=== PATIENT | female | born 1975 | race Caucasian/White ===

== ENCOUNTER 2022-05-20 21:24 | Emergency (ER) | payer BC ==
--- OUTSIDE RECORDS SUMMARY | 2022-05-20 21:28 | XMS REPORT | Continuity of Care Document ---
:1975 Author Organization [facility] t Address [address] [place] [address] Care Team Providers Name Role Phone Marce Husain MD Primary Care Physician Marce Husain MD Attending Clinician MARCE HUSAIN Attending Clinician Unavailable Pob1, Acute Care Clinic Attending Clinician Unavailable Payers Payer Name Policy Type Policy Number Effective Date Expiration Date S ource Problems Condition Condition Condition Status Onset Resolution Last Treating Co mments Source Name Details Category Date Date Treatment Clinician Date Attention Attention Disease Active 2014-09 Uni vers deficit deficit 0-01 ity of disorder disorder 00:00: [place] (ADD) (ADD) 00 Medical without without Branch hyperactiv hyperactiv ity ity Allergies, Adverse Reactions, Alerts Allergy Allergy Status Severity Reaction(s) Onset Inactive Treating Comm ents Source Name Type Date Date Clinician Levoflox Propensi Active Shortness of 2014-09 Univers acin ty to Breath 0-01 ity of adverse 00:00: [place] reaction 00 Medical s Branch LEVOFLOX DRUG Active SOB 2014-09 Univers ACIN INGREDI 0-01 ity of 00:00: [place] 00 Medical Branch Social History Social Habit Start Date Stop Date Quantity Comments Source Exposure to 2022-03-07 2022-03-17 Not sure [facility] SARS-CoV-2 00:00:00 07:44:00 [place] [facility] (event) Branch Alcohol intake 2020-11-16 2020-11-16 0 /d University 00:00:00 00:00:00 [place] [facility] Tobacco use and 2018-06-08 2018-06-08 Smokeless tobacco Un iversity of exposure 00:00:00 00:00:00 non-user [facility] Sex Ass[birth year] At [birth year] Universit y of 00:00:00 00:00:00 [facility] Smoking Status Start Date Stop Date Source Never smoked tobacco [facility] Medications Ordered Filled Start Stop Current Ordering Indication Dosage Frequency Signature Comments Components Source Medication Medication Date Date Medication? Clinician (SIG) Name Name dextroamphe Yes [id number] 20mg Take 1 Univers tamine-amph 8-15 tablet by ity of etamine 20 00:00: mouth in Last as mg tablet 00 the Medical morning Branch and 1 tablet in the evening. azithromyci 2021-0 Yes [id number] 250mg Take 1 Univers n 250 mg 7-14 tablet by ity of tablet 00:00: mouth in [place] 00 the Medical morning. Branch azithromyci 2021-0 Yes [id number] 250mg Take 1 Univers n 250 mg 7-14 tablet by ity of tablet 00:00: mouth in [place] 00 the Medical morning. Branch azithromyci 2021-0 Yes [id number] 250mg Take 1 Univers n 250 mg 7-07 tablet by ity of tablet 00:00: mouth [place] 00 daily. Medical Branch azithromyci 2021-0 Yes [id number] 250mg Take 1 Univers n 250 mg 7-07 tablet by ity of tablet 00:00: mouth [place] 00 daily. [facility] azithromyci 0 2- No [id number] 250mg Take 1 Univers n 250 mg 7-07 07-14 tablet by ity o f tablet 00:00: 00:00 mouth [place] 00 :00 daily. Medical Branch dextroamphe 2021-0 Yes [id number] 20mg Take 1 Univers tamine-amph 7-06 tablet by ity of etamine 20 00:00[place] tablet 00 (two) Medical times Branch daily. dextroamphe 2021-0 Yes [id number] 20mg Take 1 Univers tamine-amph 7-06 tablet by ity of etamine 20 00:00: mouth [place] tablet 00 (two) Medical times Branch daily. dextroamphe 2021-0 Yes [id number] 20mg Take 1 Univers tamine-amph 7-06 tablet by ity of etamine 20 00:00: [place] mg tablet 00 (two) Medical times Branch daily. dextroamphe 2021- No [id number] 20mg Take 1 Univers tamine-amph 7-06 08-15 tablet by it y of etamine 20 00:00: 00:00 mouth 2 Last as mg tablet 00 :00 (two) Medical times Branch daily. azithromyci 2020-09 Yes [id number] 250mg Take 1 Univers n 250 mg 1-16 tablet by ity of tablet 00:00: mouth [place] 00 daily. Medical Branch azithromyci 2020-09 Yes [id number] 250mg Take 1 Univers n 250 mg 1-16 tablet by ity of tablet 00:00: mouth [place] 00 daily. Medical Branch azithromyci 2020-09- No [id number] 250mg Take 1 Univers n 250 mg 1-16 07-14 tablet by ity o f tablet 00:00: 00:00 mouth [place] 00 :00 daily. Medical Branch cefUROXime Yes [id number] 500mg Take 1 Univers 500 mg 6-08 tablet by ity of tablet 00:00: mouth 2 [place] 00 (two) Medical times Branch daily. cefUROXime 2020-0 Yes [id number] 500mg Take 1 Univers 500 mg 6-08 tablet by ity of tablet 00:00: mouth 2 [place] 00 (two) Medical times Branch daily. cefUROXime 2020-0 Yes [id number] 500mg Take 1 Univers 500 mg 6-08 tablet by ity of tablet 00:00: mouth 2 [place] 00 (two) Medical times Branch daily. cefUROXime 2020-0 Yes [id number] 500mg Take 1 Univers 500 mg 6-08 tablet by ity of tablet 00:00: mouth 2 [place] 00 (two) Medical times Branch daily. hydrocodone 2019-0 Yes [id number] 5mL Take 5 mL Univers -chlorpheni 3-09 by mouth ity of ramine 00:00: every 12 [place] (IONEX 00 (twelve) Medic al PENNKINETIC hours as Bran ch ER) 10-8 needed for mg/5 mL Cough. suspension hydrocodone 2019-0 Yes [id number] 5mL Take 5 mL Univers -chlorpheni 3-09 by mouth ity of ramine 00:00: every 12 [place] (TUSSIONEX 00 (twelve) Medic al PENNKINETIC hours as Bran ch ER) 10-8 needed for mg/5 mL Cough. suspension hydrocodone 2020-0 Yes [id number] 5mL Take 5 mL Univers -chlorpheni 3-09 by mouth ity of ramine 00:00: every 12 [place] (TUSSIONEX 00 (twelve) Medic al PENNKINETIC hours as Bran ch ER) 10-8 needed for mg/5 mL Cough. suspension hydrocodone 2020-0 Yes [id number] 5mL Take 5 mL Univers -chlorpheni 3-09 by mouth ity of ramine 00:00: every 12 [place] (TUSSIONEX 00 (twelve) Medic al PENNKINETIC hours as Bran ch ER) 10-8 needed for mg/5 mL Cough. suspension FLUoxetine Yes 20mg Take 1 Unive rs (PROZAC) 20 3-12 capsule by it y of mg capsule 00:00: mouth [place] 00 daily. Medical Branch FLUoxetine Yes 20mg Take 1 Unive rs (PROZAC) 20 3-12 capsule by it y of mg capsule 00:00: mouth [place] 00 daily. Medical Branch FLUoxetine Yes 20mg Take 1 Unive rs (PROZAC) 20 3-12 capsule by it y of mg capsule 00:00: mouth [place] 00 daily. Medical Branch FLUoxetine Yes 20mg Take 1 Unive rs (PROZAC) 20 3-12 capsule by it y of mg capsule 00:00: mouth [place] 00 daily. Medical Branch Immunizations Ordered Immunization Filled Immunization Date Status Commen ts Source Name Name Influenza Virus 2020-08-17 Completed Universit y of Vaccine Quad .5 mL IM 00:00:00 Last as Medical 6+ MO Branch Influenza Virus 2020-08-17 Completed Universit y of Vaccine Quad .5 mL IM 00:00:00 Last as Medical 6+ MO Branch Influenza Virus 2020-08-17 Completed Universit y of Vaccine Quad .5 mL IM 00:00:00 Last as Medical 6+ MO Branch Influenza Virus 2020-08-17 Completed Universit y of Vaccine Quad .5 mL IM 00:00:00 Last as Medical 6+ MO Branch HEP B, Adult Dosage 2018-03-29 Completed Unive rsity of 00:00:00 [facility] HEP B, Adult Dosage 2018-03-29 Completed Unive rsity of 00:00:00 [facility] HEP B, Adult Dosage 2018-03-29 Completed Unive rsity of 00:00:00 [facility] HEP B, Adult Dosage 2018-03-29 Completed Unive rsity of 00:00:00 [facility] TDAP 2018-02-19 Completed University of 00:00:00 [facility] MMR Booster 2018-02-19 Completed University of 00:00:00 [facility] HEP B, Adult Dosage 2018-02-19 Completed Unive rsity of 00:00:00 [facility] Meningococcal 2018-02-19 Completed University of Polysaccharide 00:00:00 [place] Medi beni (groups A, C, Y and Branc h W-135) conjugate vaccine (MCV4P) PPD (TB) 2018-02-19 Completed University of 00:00:00 [facility] TDAP 2018-02-19 Completed University of 00:00:00 [facility] MMR Booster 2018-02-19 Completed University of 00:00:00 [facility] HEP B, Adult Dosage 2018-02-19 Completed Unive rsity of 00:00:00 [facility] Meningococcal 2018-02-19 Completed University of Polysaccharide 00:00:00 [place] Medi beni (groups A, C, Y and Branc h W-135) conjugate vaccine (MCV4P) PPD (TB) 2018-02-19 Completed University of 00:00:00 [facility] TDAP 2018-02-19 Completed University of 00:00:00 [facility] MMR Booster 2018-02-19 Completed University of 00:00:00 [facility] HEP B, Adult Dosage 2018-02-19 Completed Unive rsity of 00:00:00 [facility] Meningococcal 2018-02-19 Completed University of Polysaccharide 00:00:00 [place] Medi beni (groups A, C, Y and Branc h W-135) conjugate vaccine (MCV4P) PPD (TB) 2018-02-19 Completed University of 00:00:00 [facility] TDAP 2018-02-19 Completed University of 00:00:00 [facility] MMR Booster 2018-02-19 Completed University of 00:00:00 [facility] HEP B, Adult Dosage 2018-02-19 Completed Unive rsity of 00:00:00 [facility] Meningococcal 2018-02-19 Completed University of Polysaccharide 00:00:00 [place] Medi beni (groups A, C, Y and Branc h W-135) conjugate vaccine (MCV4P) PPD (TB) 2018-02-19 Completed [facility] 00:00:00 [facility] Vital Signs Vital Name Observation Time Observation Value Comments Source Systolic blood 2022-03-17 12:40:00 112 mm[Hg] Kevin sitoneyda [facility] Diastolic blood 2022-03-17 12:40:00 71 mm[Hg] Arceliaarian portillo [facility] Heart rate 2022-03-17 12:40:00 89 /min [facility] Body weight 2022-03-17 12:40:00 72.938 kg [facility] BMI 2022-03-17 12:40:00 24.45 kg/m2 [facility] Procedures This patient has no known procedures. Encounters Start End Encounter Admission Attending Care Care Encounter Source Date/Time Date/Time Type Type Clinicians Facility Department ID 2022-04-22 2022-04-22 [facility] [id number] Univers 00:00:00 00:00:00 [place] [id number] it y of [place] [id number] Last as WILBER?BLEA [id number] [address] OFFICE [facility] 2022-03-23 2022-03-23 [facility]phone [facility] [id number] Univers 00:00:00 00:00:00 [place] [id number] it y of [place] [id number] Last as WILBER?BLEA [id number] [address] MEDICAL OFFICE [facility] 2022-03-17 2022-03-17 Office [facility] [id number] Univers 07:30:00 07:45:00 Visit [place] [id number] it y of [place] [id number] Last as WILBER?BLEA [id number] [address] OFFICE [facility] 2022-03-17 2022-03-17 Outpatient R RODRIGUE [facility] [id number] Univers 07:30:00 07:30:00 MARCE hurley [facility] [place] [facility] 2020-02-26 2020-02-26 Urgent Pob1, Acute [facility] [id number] 15:47:29 16:07:29 [facility] [id number] [place] [id number] Professio [phone] nal [address] 2020-02-25 2020-02-25 [facility] [id number] 00:00:00 00:00:00 [facility] [id number] [place] [id number] Professio [phone] nal [facility] [address] 2019-12-18 2019-12-18 [facility] [id number] 00:00:00 00:00:00 [facility] [id number] [place] [id number] Professio [phone] nal [facility] [address] 2019-11-18 2019-11-18 [facility] [id number] 08:04:09 08:19:09 Visit [facility] [id number] [place] [id number] Professio [phone] [place] [address] [address] Results This patient has no known results.
--- NOTE | 2022-05-20 23:06 | ER ---
Nurse's Notes [facility] Name: Jessica Osuna Age: 46 yrs Sex: Female : 1975 Arrival Date: 05/20/2022 Time: 21:28 Bed 15 Private MD: Diagnosis: SARS-associated coronavirus as the cause of diseases classified elsewhere Presentation: 05/20 21:37 Chief complaint: Patient states: I took a home COVID test on Monday and it was bm7 positive. Since then I have been feeling worse. I have so much congestions, drainage, and a bad cough. I have also been running a fever. Coronavirus screen: Client reports previous positive COVID test result. Date of collection: May 18, 2022. Ebola Screen: No symptoms or risks identified at this time. Initial Sepsis Screen: Does the patient meet any 2 criteria? No. Patient's initial sepsis screen is negative. Does the patient have a suspected source of infection? No. Patient's initial sepsis screen is negative. Risk Assessment: Do you want to hurt yourself or someone else? Patient reports no desire to harm self or others. Onset of symptoms was May 18, 2022. Care prior to arrival: Medication(s) given: Tylenol, \T\ 1930. 21:37 Method Of Arrival: Ambulatory 7 21:37 Acuity: TINA 4 bm7 Triage Assessment: 21:39 General: Appears in no apparent distress. uncomfortable, Behavior is calm, cooperative, bm7 appropriate for age. Pain: Complains of pain in forehead. EENT: Nares are clear with drainage noted Oral mucosa is moist. Throat is reddened Reports nasal congestion nasal discharge. Neuro: No deficits noted. Cardiovascular: No deficits noted. Respiratory: Reports cough that is hacking, persistent pain with cough Airway is patent Respiratory effort is even, unlabored, Respiratory pattern is regular, symmetrical, Breath sounds are clear bilaterally. GI: Reports nausea, vomiting. : No deficits noted. No signs and/or symptoms were reported regarding the genitourinary system. Derm: No deficits noted. No signs and/or symptoms reported regarding the dermatologic system. Musculoskeletal: No deficits noted. No signs and/or symptoms reported regarding the musculoskeletal system. 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 - Social history:: Smoking status: Patient denies any tobacco usage or history of. - Family history:: not pertinent. - Hospitalizations: : No recent hospitalization is reported. Screenin:13 Abuse screen: Denies threats or abuse. Nutritional screening: No deficits noted. bm7 Tuberculosis screening: No symptoms or risk factors identified. Fall Risk None identified. Assessment: 23:13 Reassessment: No changes from previously documented assessment. Patient and/or family bm7 updated on plan of care and expected duration. Pain level reassessed. Vital Signs: 21:36 BP 115 / 52; Pulse 78; Resp 18; Temp 98.9(O); Pulse Ox 98% on R/A; Weight 68.04 kg (R); bm7 Height 5 ft. 8 in. (172.72 cm); Pain 7/10; 21:36 Body Mass Index 22.81 (68.04 kg, 172.72 cm) bm7 ED Course: 21:28 Patient arrived in ED. ja2 21:36 Arm band placed on right wrist. bm7 21:37 Joaquín Mcgee MD is Attending Physician. rn 21:39 Triage completed. bm7 23:03 Jordy Carroll RN is Primary Nurse. ja4 23:13 No apparent distress. bm7 23:13 Patient has correct armband on for positive identification. bm7 23:13 No provider procedures requiring assistance completed. Patient did not have IV access bm7 during this emergency room visit. Administered Medications: No medications were administered Medication: 23:13 VIS not applicable for this client. bm7 Outcome: 23:05 Discharge ordered by . rn 23:13 Eloped from waiting room, after seeing physician Time discovered patient gone: bm7 May 20, 2022 at 23:14 23:13 Condition: good 23:14 Patient left the ED. bm7 Signatures: Joaquín Mcgee MD MD rn McCarthy, Brittany, RN RN bm7 Alexander, Allie ja2 Glen, Jordy, RN RN ja4
--- NOTE | 2022-05-20 23:06 | EDPHYS ---
Physician Documentation [facility] Name: Jessica Osuna Age: 46 yrs Sex: Female : 1975 Arrival Date: 05/20/2022 Time: 21:28 Bed 15 Private MD: ED Physician Joaquín Mcgee HPI: 05/20 22:02 This 46 yrs old Female presents to ER via Ambulatory with complaints of Covid. rn 22:02 The patient or guardian reports cough, difficulty breathing, flu symptoms, low-grade rn fever, myalgias. Onset: The symptoms/episode began/occurred 2 day(s) ago. Severity of symptoms: At their worst the symptoms were moderate, in the emergency department the symptoms are unchanged. Modifying factors: The symptoms are alleviated by nothing, the symptoms are aggravated by nothing. Associated signs and symptoms: Pertinent positives: fever, rhinorrhea, sore throat, Pertinent negatives: chest pain. The patient has not experienced similar symptoms in the past. The patient has not recently seen a physician. Pt reports cough/congestion/sore throat/myalgias/fatigue for 2 days. COVID +. Reports what brought her in today was severe congestion, worse when lays down. No hx of asthma, does not smoke, is first time with COVID. No hemoptysis. no chest pain. . 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 - Social history:: Smoking status: Patient denies any tobacco usage or history of. - Family history:: not pertinent. - Hospitalizations: : No recent hospitalization is reported. 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 Exam: 22:02 Constitutional: This is a well developed, well nourished patient who is awake, alert, rn covered in blanket Head/Face: Normocephalic, atraumatic. Eyes: Periorbital areas with no swelling, redness, or edema. ENT: No stridor Neck: + tender anterior cervical LAD Cardiovascular: Regular rate and rhythm. No pulse deficits. Respiratory: Clear bilateral breath sounds, no wheezing. No increased work of breathing, no retractions or nasal flaring. Skin: Warm, dry MS/ Extremity: Pulses equal, no cyanosis Neuro: Awake and alert, GCS 15 Vital Signs: 21:36 BP 115 / 52; Pulse 78; Resp 18; Temp 98.9(O); Pulse Ox 98% on R/A; Weight 68.04 kg (R); bm7 Height 5 ft. 8 in. (172.72 cm); Pain 7/10; 21:36 Body Mass Index 22.81 (68.04 kg, 172.72 cm) bm7 MDM: 21:38 Patient medically screened. rn 23:04 Differential Diagnosis: Upper Respiratory Infection Viral Syndrome Other COVID. Data rn reviewed: vital signs, nurses notes, and as a result, I will discharge patient. Counseling: I had a detailed discussion with the patient and/or guardian regarding: the historical points, exam findings, and any diagnostic results supporting the discharge/admit diagnosis, the need for outpatient follow up, to return to the emergency department if symptoms worsen or persist or if there are any questions or concerns that arise at home. Refusal of service: The patient/guardian displays adequate decision making capability and despite a detailed discussion of alternatives, benefits, risks, and consequences refuses: all X-rays. ED course: Pt did not want CXR, left when was being taken to room. Had already given her recommendations for treatment, did not stay. . Administered Medications: No medications were administered Disposition Summary: 05/20/22 23:05 Discharge Ordered Location: Home rn Problem: new rn Symptoms: are unchanged rn Condition: Stable rn Diagnosis - SARS-associated coronavirus as the cause of diseases classified elsewhere rn Followup: rn - With: Private Physician - When: As needed - Reason: Recheck today's complaints, Re-evaluation by your physician Discharge Instructions: - Discharge Summary Sheet rn - GILBERTO-[place] rn Forms: - Medication Reconciliation Form rn - Thank You Letter rn - Antibiotic pacu rn - Prescription Opioid Use rn Signatures: Dispatcher [employer] EDJoaquín Gutiérrez MD MD rn McCarthy, Brittany, RN RN bm7 Corrections: (The following items were deleted from the chart) 22:52 21:47 Chest Single View+[id number] ordered. EDIL EDIL
[2022-05-21 04:11] VITALS: BP 115/52; TEMP 98.9; O2SAT 98
== END 2022-05-20 23:14 | disposition home or self-care (01) ==
LOC: ER 21:24
DX: U07.1 COVID-19 (principal); J45.909 Unspecified asthma, uncomplicated; Z88.1 Allergy status to other antibiotic agents
CPT/HCPCS: 99281

== ENCOUNTER 2023-09-19 15:21 | Observation (INO) | payer BC ==
--- OUTSIDE RECORDS SUMMARY | 2023-09-19 15:24 | XMS REPORT | Continuity of Care Document ---
Author Name Unknown Address 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 Name Role Phone Pob1, Acute Care Clinic Attending Clinician Porsche Kenny MD, Jose Attending Clinician Encounters Start Date/Time End Date/Time Encounter Type Admission Type Attending Clinicians Care Facility Care Department Encounter ID Source 2020-02-26 15:47:29 2020-02-26 16:07:29 Urgent Care Pob1, Acute Care Clinic [facility] [address] [id number] 2020-02-25 00:00:00 2020-02-25 00:00:00 Jose Fraser [facility] [address] [id number] 2019-12-18 00:00:00 2019-12-18 00:00:00 Jose rFaser [facility] [address] [id number] 2019-11-18 08:04:09 2019-11-18 08:19:09 Office Visit Jose Kenny [facility] [address] [id number]
[2023-09-19] MEDS ORDERED: D10W 250 ML IV ONE (16:03)
--- NOTE | 2023-09-19 16:07 | RAD REPORT ---
EXAM DESCRIPTION: CT - Ct Stroke Brain Wo Cont - 09/19/2023 3:51 pm CLINICAL HISTORY: STROKE ALERT COMPARISON: No comparisons TECHNIQUE: All CT scans are performed using dose optimization technique as appropriate and may inclu de automated exposure control or mA/KV adjustment according to patient size. FINDINGS: No intracranial hemorrhage, hydrocephalus.No areas of brain edema or evidence of midline s hift. Small indeterminate area of hypoattenuation in the left basal ganglia. CSF attenuation structur e at the left posterior frontal lobe could represent a small arachnoid cyst. The paranasal sinuses and mastoids are clear. The calvarium is intact. IMPRESSION: No acute large vascular territory infarct or intracranial hemorrhage. Small area of hypo attenuation left basal ganglia could represent a small age indeterminate lacunar infarct. MRI could f melbather evaluate. Discussed with Dr. Mojica by Dr. Sandoval at [id number] on 09/19/23
--- NOTE | 2023-09-19 16:10 | RAD REPORT ---
EXAM DESCRIPTION: CT - Neck Angio - 09/19/2023 3:55 pm CLINICAL HISTORY: HEADACHE COMPARISON: No comparisons TECHNIQUE: CT angiography of the neck vessels was performed with maximum intensity reformatted image s. CAROTID STENOSIS REFERENCE USING NASCET CRITERIA: Mild - <50% stenosis. Moderate - 50-69% stenosis. Severe - 70-94% stenosis. Near occlusion - 95-99% stenosis. Occluded - 100% stenosis. All CT scans are performed using dose optimization technique as appropriate and may include automated exposure control or mA/KV adjustment according to patient size. FINDINGS: A left aortic arch is identified with normal three vessel configuration of the great vesse ls. No significant flow abnormality is seen of the common carotid bilaterally. No significant stenosis is identified involving the cervical segments of both internal carotid arteri es. Normal flow is seen within both vertebral arteries. IMPRESSION: No significant flow abnormality of the neck vessels is identified.
--- NOTE | 2023-09-19 16:11 | RAD REPORT ---
EXAM DESCRIPTION: CT - Head angio - 09/19/2023 3:55 pm CLINICAL HISTORY: HEADACHE COMPARISON: Ct Stroke Brain Wo Cont dated 09/19/2023 TECHNIQUE: CT angiography of the head was performed with maximum intensity reformatted images. 3D ma ximum intensity pixel (MIP) reconstructions were created All CT scans are performed using dose optimization technique as appropriate and may include automated exposure control or mA/KV adjustment according to patient size. FINDINGS: Anterior circulation: No aneurysm or large vessel occlusion. No hemodynamically significant stenosis. No arteriovenous malf ormation identified. Posterior circulation: No aneurysm or large vessel occlusion. No hemodynamically significant stenosis. No arteriovenous malf ormation identified. IMPRESSION: No significant flow abnormality is detected.
--- NOTE | 2023-09-19 16:32 | RAD REPORT ---
EXAM DESCRIPTION: RAD - Chest Single View - 09/19/2023 4:22 pm CLINICAL HISTORY: COUGH COMPARISON: <Comparisons> FINDINGS: Lines: None. Lungs: No evidence of edema or pneumonia. Pleural: No significant pleural effusions or pneumothorax. Cardiac: The heart size is within normal limits. Mediastinum: Within normal limits. Bones: No acute fractures. Other: None IMPRESSION: No acute cardiopulmonary disease.
[2023-09-19] MEDS ORDERED: METHYLPREDNISOLONE 125 MG INJ ONE (16:38)
[2023-09-19] MEDS ORDERED: KETOROLAC 30 MG/ML INJ ONE (16:38)
[2023-09-19] MEDS ORDERED: NA CHLORIDE 0.9% 1,000 ML ONE (16:38)
[2023-09-19] MEDS ORDERED: DIPHENHYDRAMINE 50 MG/ML VIAL ONE (16:38)
[2023-09-19 16:39] LABS: Protime INR 1.02
[2023-09-19 16:40] LABS: Potassium 3.8 mEq/L (3.5-5.1); Troponin High Sensitivity 4.2 pg/mL (<58.9)
[2023-09-19 16:43] LABS: Absolute Lymphocytes (CBC) 1.1 K/uL (0.7-4.9); Hematocrit 30.2 % (36.0-45.0); Lymphocytes % 14.6 % (15.3-44.8); MCV 68.1 fL (80-100); MPV 7.5 fL (7.6-11.3); Platelets 321 thou/uL (152-406); RBC Red Blood Cell Count 4.44 M/uL (3.86-4.86)
[2023-09-19] MEDS ORDERED: METOCLOPRAMIDE 10 MG/2mL INJ ONE (16:45)
[2023-09-19 17:15] LABS: Anisocytosis 1+; Blood Morphology Comment NOTED (NOT SEEN); Hypochromasia 1+; Platelet Estimate ADEQ; White Blood Cell Scan OK (OK)
--- NOTE | 2023-09-19 18:15 | ER ---
Nurse's Notes [facility] Name: Jessica Osuna Age: 47 yrs Sex: Female : 1975 Arrival Date: 09/19/2023 Time: 15:21 Bed 6 Private MD: Diagnosis: Cerebral infarction, unspecified;Hypoglycemia, unspecified Presentation: 09/19 15:28 Chief complaint: Patient states: was driving this morning and I noticed my vision went iw blurry in my left eye , that was at 0745 this morning, then I started vomiting at 2 pm, and headache since 1250 , pain to right side of head and behind eye and across the front forehead , no fever. Coronavirus screen: Client presents with at least one sign or symptom that may indicate coronavirus-19. Ebola Screen: Patient negative for fever greater than or equal to 101.5 degrees Fahrenheit, and additional compatible Ebola Virus Disease symptoms Patient denies exposure to infectious person. Patient denies travel to an Ebola-affected area in the 21 days before illness onset. No symptoms or risks identified at this time. Initial Sepsis Screen: Does the patient meet any 2 criteria? No. Patient's initial sepsis screen is negative. Does the patient have a suspected source of infection? No. Patient's initial sepsis screen is negative. Risk Assessment: Do you want to hurt yourself or someone else? Patient reports no desire to harm self or others. Onset of symptoms was September 19, 2023. 15:28 Method Of Arrival: Wheelchair 15:28 Acuity: TINA 2 iw Triage Assessment: 20:55 General: Appears in no apparent distress. comfortable. jj7 Historical: - Allergies: 15:31 Levaquin; iw - Home Meds: 15:31 Adderall XR 20 mg Oral cp24 1 cap once daily [Active]; iw - PMHx: 15:31 Asthma; iw - Immunization history:: Adult Immunizations up to date. - Social history:: Smoking status: Patient denies any tobacco usage or history of. Screenin:16 [facility] ED Fall Risk Assessment (Adult) History of falling in the last 3 months, mb9 including since admission No falls in past 3 months (0 pts) Confusion or Disorientation No (0 pts) Intoxicated or Sedated No (0 pts) Impaired Gait No (0 pts) Mobility Assist Device Used No (0 pt) Altered Elimination No (0 pt) Score/Fall Risk Level 0 - 2 = Low Risk Oriented to surroundings, Maintained a safe environment, Educated pt \T\ family on fall prevention, incl call for assistance when getting out of bed. Abuse screen: Denies threats or abuse. Nutritional screening: No deficits noted. Tuberculosis screening: No symptoms or risk factors identified. 16:16 Belia Swallow Protocol 3 oz Water Swallow Challenge: Pt able to drink all water without mb9 stopping, coughing, choking or throat clearing: No Result: FAIL MD Notified: Cara Medina MD. Assessment: 15:38 Reassessment: pt taken to CT via wheelchair. mb9 16:10 General: Behavior is drowsy. mb9 16:10 Pain: Complains of pain in head Pain does not radiate. Pain currently is 8 out of 10 on mb9 a pain scale. Quality of pain is described as throbbing, Pain began suddenly, Is continuous. Neuro: Sapp Agitation-Sedation Scale (RASS): 0 - Alert and Calm Level of Consciousness is awake, obeys commands, lethargic, Oriented to person, place, time, situation, Appropriate for age Healthcare Social Worker are equal bilaterally Moves all extremities. Speech is normal, Facial symmetry appears normal, Pupils are PERRLA, Intact Reports blurred vision. Cardiovascular: Patient's skin is warm and dry. Respiratory: Airway is patent Respiratory effort is even, unlabored, Respiratory pattern is regular, symmetrical, Breath sounds are clear bilaterally. GI: Abdomen is flat, non-distended, Bowel sounds present X 4 quads. Abd is soft and non tender X 4 quads. Reports nausea, vomiting. : No signs and/or symptoms were reported regarding the genitourinary system. EENT: No signs and/or symptoms were reported regarding the EENT system. Derm: Skin is pink, warm \T\ dry. Musculoskeletal: Range of motion: intact in all extremities. 17:00 Reassessment: Patient and/or family updated on plan of care and expected duration. Pain mb9 level reassessed. Patient is alert, oriented x 3, equal unlabored respirations, skin warm/dry/pink. 17:40 Reassessment: Patient and/or family updated on plan of care and expected duration. Pain mb9 level reassessed. Patient is alert, oriented x 3, equal unlabored respirations, skin warm/dry/pink. Patient states symptoms have improved. Vital Signs: 15:28 BP 111 / 58; Pulse 69; Resp 16; Temp 97.3; Pulse Ox 97% on R/A; Weight 68.04 kg; Height iw 5 ft. 8 in. ; 16:47 BP 123 / 69; Pulse 66; Resp 16; Pulse Ox 100% on R/A; mb9 18:43 BP 108 / 55; Pulse 84; Resp 18; Pulse Ox 99% on R/A; tl4 19:30 BP 115 / 64; Pulse 72; Resp 18; Pulse Ox 99% ; jj7 20:27 BP 109 / 75; Pulse 75; Resp 19; Pulse Ox 99% ; jj7 15:28 Body Mass Index 22.81 (68.04 kg, 172.72 cm) iw Becca Coma Score: 18:15 Eye Response: spontaneous(4). Motor Response: obeys commands(6). Verbal Response: gb1 oriented(5). Total: 15. NIH Stroke Scale Scores: 16:05 NIHSS Score: 0 mb9 18:15 NIHSS Score: 0 gb1 ED Course: 15:23 Patient arrived in ED. mg5 15:28 Cara Medina MD is Attending Physician. gb1 15:31 Triage completed. iw 15:39 Trisha Valverde, RN is Primary Nurse. mb9 15:39 Arm band placed on. mb9 15:50 Inserted saline lock: 22 gauge in left antecubital area, using aseptic technique. mb9 15:50 EKG done, by ED staff, reviewed by Cara Medina MD. mb9 15:53 CT Stroke Brain w/o Contrast In Process Unspecified. EDMS 15:57 CT Head Angio In Process Unspecified. EDMS 15:57 CT Neck Angio In Process Unspecified. EDMS 16:05 Placed in gown. Bed in low position. Call light in reach. Side rails up X 1. Client mb9 placed on continuous cardiac and pulse oximetry monitoring. NIBP monitoring applied. sander hand on. 16:20 Inserted saline lock: 22 gauge in left forearm, using aseptic technique. ds4 16:24 Stroke CXR 1 View In Process Unspecified. EDMS 16:48 No provider procedures requiring assistance completed. mb9 18:12 Christian Beal MD is Hospitalizing Provider. gb1 20:58 Patient admitted, IV remains in place. compa Administered Medications: 16:15 Drug: D10 in Water IVP 250 ml IVP once Route: IVP; Site: right antecubital; mb9 16:49 Follow up: Response: No adverse reaction mb9 16:38 Drug: diphenhydrAMINE IVP 12.5 mg IVP once Route: IVP; Site: left forearm; mb9 17:49 Follow up: Response: No adverse reaction mb9 16:38 Drug: NS 0.9% IV 1000 ml IV at 1000 ml once Route: IV; Rate: 1000 ml; Site: left mb9 forearm; 18:22 Follow up: Response: No adverse reaction; IV Status: Completed infusion mb9 16:40 Drug: Ketorolac IVP 30 mg IVP once Route: IVP; Site: left forearm; mb9 17:49 Follow up: Response: No adverse reaction mb9 16:43 Drug: MethylPrednisoLONE IVP 60 mg IVP once Route: IVP; Site: left forearm; mb9 17:49 Follow up: Response: No adverse reaction mb9 16:44 Not Given (not in ER): [id number] mg IVP once iw 16:48 Drug: metoCLOPramide IVP 10 mg IVP once; over 1 to 2 minutes Route: IVP; Site: left mb9 forearm; 17:49 Follow up: Response: No adverse reaction mb9 Medication: 16:16 VIS not applicable for this client. mb9 Outcome: 18:14 Decision to Hospitalize by Provider. gb1 20:55 Admitted to Med/surg accompanied by tech, via wheelchair, room 215, Report called to compa VALERA RN 20:55 Condition: improved 21:07 Patient left the ED. compa NIH Stroke Scale - NIH Stroke Score Date: 09/19/2023 Time: 16:05 Total Score = 0 10. Dysarthria (speech clarity - read or repeat words) - 0(Normal) 11. Extinction and Inattention (visual/tactile/auditory/spatial/personal) - 0(No abnormality) 1a. Level of Consciousness (LOC) - 0(Alert) 1b. Level of Consciousness (LOC) (Month \T\ Age) - 0(Both) 1c. LOC Commands (Open \T\ Closes Eyes/Simonizer) - 0(Both) 2. Best Gaze (Lateral Gaze Paresis) - 0(Normal) 3. Visual Field Loss - 0(No visual loss) 4. Facial Palsy - 0(Normal) 5a. Left Arm: Motor (10-second hold) - 0(No drift) 5b. Right Arm: Motor (10-second hold) - 0(No drift) 6a. Left Leg: Motor (5-second hold - always test supine) - 0(No drift) 6b. Right Leg: Motor (5-second hold - always test supine) - 0(No drift) 7. Limb Ataxia (finger/nose \T\ heel/godfrey - test with eyes open) - 0(Absent) 8. Sensory Loss (pinprick arms/legs/face) - 0(Normal) 9. Best Language: Aphasia (description/naming/reading) - 0(No aphasia) Initials: mb9 NIH Stroke Scale - NIH Stroke Score Date: 09/19/2023 Time: 18:15 Total Score = 0 10. Dysarthria (speech clarity - read or repeat words) - 0(Normal) 11. Extinction and Inattention (visual/tactile/auditory/spatial/personal) - 0(No abnormality) 1a. Level of Consciousness (LOC) - 0(Alert) 1b. Level of Consciousness (LOC) (Month \T\ Age) - 0(Both) 1c. LOC Commands (Open \T\ Closes Eyes/Simonizer) - 0(Both) 2. Best Gaze (Lateral Gaze Paresis) - 0(Normal) 3. Visual Field Loss - 0(No visual loss) 4. Facial Palsy - 0(Normal) 5a. Left Arm: Motor (10-second hold) - 0(No drift) 5b. Right Arm: Motor (10-second hold) - 0(No drift) 6a. Left Leg: Motor (5-second hold - always test supine) - 0(No drift) 6b. Right Leg: Motor (5-second hold - always test supine) - 0(No drift) 7. Limb Ataxia (finger/nose \T\ heel/godfrey - test with eyes open) - 0(Absent) 8. Sensory Loss (pinprick arms/legs/face) - 0(Normal) 9. Best Language: Aphasia (description/naming/reading) - 0(No aphasia) Initials: gb1 Signatures: Dispatcher [employer] EDKristine Sanchez RN RN Cole Horne ds4 Madison Hung RN RN jj7 Trisha Valverde RN RN mb9 Faye Rios mg5 Cara Medina MD MD gb1 Miles De Anda tl4 Corrections: (The following items were deleted from the chart) 17:41 17:39 Reassessment: No changes from previously documented assessment. tung mb9
--- NOTE | 2023-09-19 18:15 | EDPHYS ---
Physician Documentation [facility] Name: Jessica Osuna Age: 47 yrs Sex: Female : 1975 Arrival Date: 09/19/2023 Time: 15:21 Bed 6 Private MD: ED Physician Cara Medina HPI: 09/19 18:15 This 47 yrs old Female presents to ER via Wheelchair with complaints of gb1 Vomiting, Headache, Blurred Vision. Historical: - Allergies: 15:31 Levaquin; iw - Home Meds: 15:31 Adderall XR 20 mg Oral cp24 1 cap once daily [Active]; iw - PMHx: 15:31 Asthma; iw - Immunization history:: Adult Immunizations up to date. - Social history:: Smoking status: Patient denies any tobacco usage or history of. ROS: 18:15 Constitutional: Positive for gb1 18:15 Eyes: Positive for blurry vision, 18:15 ENT: Positive for 18:15 ENT: Positive for Headache, 18:15 Abdomen/GI: Positive for nausea and vomiting, 18:15 All other systems are negative, gb1 Exam: 18:15 Head/Face: Normocephalic, atraumatic. Eyes: Pupils equal round and reactive to light, gb1 extra-ocular motions intact. Lids and lashes normal. Conjunctiva and sclera are non-icteric and not injected. Cornea within normal limits. Periorbital areas with no swelling, redness, or edema. ENT: Nares patent. No nasal discharge, no septal abnormalities noted. Tympanic membranes are normal and external auditory canals are clear. Oropharynx with no redness, swelling, or masses, exudates, or evidence of obstruction, uvula midline. Mucous membranes moist. Neck: Trachea midline, no thyromegaly or masses palpated, and no cervical lymphadenopathy. Supple, full range of motion without nuchal rigidity, or vertebral point tenderness. No Meningismus. Chest/axilla: Normal chest wall appearance and motion. Nontender with no deformity. No lesions are appreciated. Cardiovascular: Regular rate and rhythm with a normal S1 and S2. No gallops, murmurs, or rubs. Normal PMI, no JVD. No pulse deficits. Respiratory: Lungs have equal breath sounds bilaterally, clear to auscultation and percussion. No rales, rhonchi or wheezes noted. No increased work of breathing, no retractions or nasal flaring. Abdomen/GI: Soft, non-tender, with normal bowel sounds. No distension or tympany. No guarding or rebound. No evidence of tenderness throughout. Skin: Warm, dry with normal turgor. Normal color with no rashes, no lesions, and no evidence of cellulitis. MS/ Extremity: Pulses equal, no cyanosis. Neurovascular intact. Full, normal range of motion. Neuro: Awake and alert, GCS 15, oriented to person, place, time, and situation. Cranial nerves II-XII grossly intact. Motor strength 5/5 in all extremities. Sensory grossly intact. Cerebellar exam normal. Normal gait. Psych: Awake, alert, with orientation to person, place and time. Behavior, mood, and affect are within normal limits. 18:15 Constitutional: The patient appears lethargic, Vital Signs: 15:28 BP 111 / 58; Pulse 69; Resp 16; Temp 97.3; Pulse Ox 97% on R/A; Weight 68.04 kg; Height iw 5 ft. 8 in. ; 16:47 BP 123 / 69; Pulse 66; Resp 16; Pulse Ox 100% on R/A; mb9 18:43 BP 108 / 55; Pulse 84; Resp 18; Pulse Ox 99% on R/A; tl4 19:30 BP 115 / 64; Pulse 72; Resp 18; Pulse Ox 99% ; jj7 20:27 BP 109 / 75; Pulse 75; Resp 19; Pulse Ox 99% ; jj7 15:28 Body Mass Index 22.81 (68.04 kg, 172.72 cm) iw NIH Stroke Scale Scores: 16:05 NIHSS Score: 0 mb9 18:15 NIHSS Score: 0 gb1 Becca Coma Score: 18:15 Eye Response: spontaneous(4). Motor Response: obeys commands(6). Verbal Response: gb1 oriented(5). Total: 15. MDM: 15:28 Patient medically screened. gb1 18:15 Differential diagnosis: CVA versus TIA, acute hypoglycemia with metabolic derangements, gb1 consider new onset diabetes with hypoglycemia. I did a CAT scan just because of. Data reviewed: vital signs, nurses notes. ED course: 47-year-old female here with vomiting, headache and blurred vision with acute onset hypoglycemia as symptoms started today at work. She had a head CT today which showed angiogram showed acute lacunar infarct of the basal ganglia. I will admit her for observation on the hospitalist service inpatient admission on the hospitalist service for MRI brain and consultation with neurology. Patient symptoms are improved and she is able to eat here in the emergency department her blood sugar is over 80 at this time.. 09/19 15:39 Order name: Basic Metabolic Panel; Complete Time: 16:44 gb09/19 15:39 Order name: CBC with Diff; Complete Time: 17:30 09/19 15:39 Order name: High Sensitivity Troponin; Complete Time: 16:44 09/19 15:39 Order name: Magnesium; Complete Time: 16:44 09/19 15:39 Order name: Protime (+inr); Complete Time: 16:44 09/19 15:39 Order name: Ptt, Activated; Complete Time: 16:44 09/19 16:14 Order name: Glucose, Ancillary Testing; Complete Time: 16:28 EDMS 09/19 17:16 Order name: CBC Smear Scan; Complete Time: 17:30 EDMS 09/19 17:31 Order name: Glucose, Ancillary Testing; Complete Time: 17:42 EDMS 09/19 15:39 Order name: CT Head Angio; Complete Time: 16:28 09/19 15:39 Order name: CT Neck Angio; Complete Time: 16:28 09/19 15:39 Order name: CT Stroke Brain w/o Contrast; Complete Time: 16:28 09/19 15:39 Order name: Stroke CXR 1 View; Complete Time: 16:44 09/19 15:39 Order name: EKG; Complete Time: 15:40 09/19 15:39 Order name: Accucheck; Complete Time: 16:15 09/19 15:39 Order name: Cardiac monitoring; Complete Time: 15:39 09/19 15:39 Order name: EKG - Nurse/Tech; Complete Time: 16:08 09/19 15:39 Order name: IV Saline Lock; Complete Time: 16:15 09/19 15:39 Order name: Labs collected and sent; Complete Time: 16:15 09/19 15:39 Order name: NPO; Complete Time: 15:39 gb1 09/19 15:39 Order name: O2 Per Protocol; Complete Time: 15:39 gb1 09/19 15:39 Order name: O2 Sat Monitoring; Complete Time: 15:39 gb1 09/19 15:39 Order name: Stroke Swallow Screen; Complete Time: 15:39 gb1 Administered Medications: 16:15 Drug: D10 in Water IVP 250 ml IVP once Route: IVP; Site: right antecubital; mb9 16:49 Follow up: Response: No adverse reaction mb9 16:38 Drug: diphenhydrAMINE IVP 12.5 mg IVP once Route: IVP; Site: left forearm; mb9 17:49 Follow up: Response: No adverse reaction mb9 16:38 Drug: NS 0.9% IV 1000 ml IV at 1000 ml once Route: IV; Rate: 1000 ml; Site: left mb9 forearm; 18:22 Follow up: Response: No adverse reaction; IV Status: Completed infusion mb9 16:40 Drug: Ketorolac IVP 30 mg IVP once Route: IVP; Site: left forearm; mb9 17:49 Follow up: Response: No adverse reaction mb9 16:43 Drug: MethylPrednisoLONE IVP 60 mg IVP once Route: IVP; Site: left forearm; mb9 17:49 Follow up: Response: No adverse reaction mb9 16:44 Not Given (not in ER): [id number] mg IVP once iw 16:48 Drug: metoCLOPramide IVP 10 mg IVP once; over 1 to 2 minutes Route: IVP; Site: left mb9 forearm; 17:49 Follow up: Response: No adverse reaction mb9 Disposition: 18:20 Chart complete. gb1 Disposition Summary: 09/19/23 18:14 Hospitalization Ordered Notes: Hospitalization Status: Inpatient Admission gb1 Provider: Christian Beal Location: Telemetry/MedSurg (Inpatient) gb1 Condition: Fair gb1 Problem: new gb1 Symptoms: are unchanged gb1 Bed/Room Type: Standard gb1 Room Assignment: 215(09/19/23 20:16) kmf Diagnosis - Cerebral infarction, unspecified gb1 - Hypoglycemia, unspecified gb1 Forms: - Medication Reconciliation Form gb1 - SBAR form gb1 - Leadership Thank You Letter gb1 Critical care time excluding procedures: 18:15 Critical care time: Bedside Care: 90 minutes, Family Intervention: 25 minutes. Total gb1 time: 115 minutes NIH Stroke Scale - NIH Stroke Score Date: 09/19/2023 Time: 16:05 Total Score = 0 10. Dysarthria (speech clarity - read or repeat words) - 0(Normal) 11. Extinction and Inattention (visual/tactile/auditory/spatial/personal) - 0(No abnormality) 1a. Level of Consciousness (LOC) - 0(Alert) 1b. Level of Consciousness (LOC) (Month \T\ Age) - 0(Both) 1c. LOC Commands (Open \T\ Closes Eyes/Beater Operator) - 0(Both) 2. Best Gaze (Lateral Gaze Paresis) - 0(Normal) 3. Visual Field Loss - 0(No visual loss) 4. Facial Palsy - 0(Normal) 5a. Left Arm: Motor (10-second hold) - 0(No drift) 5b. Right Arm: Motor (10-second hold) - 0(No drift) 6a. Left Leg: Motor (5-second hold - always test supine) - 0(No drift) 6b. Right Leg: Motor (5-second hold - always test supine) - 0(No drift) 7. Limb Ataxia (finger/nose \T\ heel/godfrey - test with eyes open) - 0(Absent) 8. Sensory Loss (pinprick arms/legs/face) - 0(Normal) 9. Best Language: Aphasia (description/naming/reading) - 0(No aphasia) Initials: mb9 NIH Stroke Scale - NIH Stroke Score Date: 09/19/2023 Time: 18:15 Total Score = 0 10. Dysarthria (speech clarity - read or repeat words) - 0(Normal) 11. Extinction and Inattention (visual/tactile/auditory/spatial/personal) - 0(No abnormality) 1a. Level of Consciousness (LOC) - 0(Alert) 1b. Level of Consciousness (LOC) (Month \T\ Age) - 0(Both) 1c. LOC Commands (Open \T\ Closes Eyes/Beater Operator) - 0(Both) 2. Best Gaze (Lateral Gaze Paresis) - 0(Normal) 3. Visual Field Loss - 0(No visual loss) 4. Facial Palsy - 0(Normal) 5a. Left Arm: Motor (10-second hold) - 0(No drift) 5b. Right Arm: Motor (10-second hold) - 0(No drift) 6a. Left Leg: Motor (5-second hold - always test supine) - 0(No drift) 6b. Right Leg: Motor (5-second hold - always test supine) - 0(No drift) 7. Limb Ataxia (finger/nose \T\ heel/godfrey - test with eyes open) - 0(Absent) 8. Sensory Loss (pinprick arms/legs/face) - 0(Normal) 9. Best Language: Aphasia (description/naming/reading) - 0(No aphasia) Initials: gb1 Signatures: Dispatcher [employer] EDKristine Sanchez RN RN iw Trisha Valverde RN RN mb9 Cara Medina MD MD gb1 Ania Angela kmf Corrections: (The following items were deleted from the chart) 20:16 18:[address]
[2023-09-19] MEDS ORDERED: ALBUTEROL 2.5 MG/3 ML NEB SOL NEB PRN (18:57)
[2023-09-19] MEDS ORDERED: ACETAMINOPHEN 325 MG TABLET PO PRN (18:57)
--- NOTE | 2023-09-19 19:24 | P.HP ---
Certification for Inpatient Patient admitted to: Observation Patient will require the following post-hospital care: None Practitioner: I am a practitioner with admitting privileges, knowledge of patient current condition, hospital course, and medical plan of care. Services: Services provided to patient in accordance with Admission requirements found in Title 42 Section 412.3 of the Code of Federal Regulations Patient History Date of Service: 09/19/23 Reason for admission: Headache, blurry vision and vomiting History of Present Illness: Pt is a 47 yo female with past medical history of ADD, asthma (unknown lung disease that started after the COVID infection) and raynaud's disease who presents with blurry vision, right eye pain and vomiting. Pt reports that the blurry vision started at 7:45am while she was driving. She went home and later noticed right eye pain. It was subsequently followed by vomiting at 2:30pm. Pt denies eating any unusual food item. She ate Ham and mayonaise that she made by herself. The symptoms progressively worsened and pt came to the ER for evaluation. On admission, Lab studies show blood glucose of 22. Hgb 7.4, Na 132, Cr 0.74. CT head shows small left basal ganglia lacunar infarct, CTA head and neck are unremarkable. CXR is unremarkable. ER physician gave patient juice and the blood glucose improved to 125. At bedside, pt is in NAD. She denies any fever, chills, chest pain, SOB, nausea, abdominal pain, dysuria, leg edema or hematuria but reports headache, blurry vision and vomiting. Allergies levofloxacin [From Levaquin] Allergy (Intermediate, Verified 05/16/12 17:47) Hives - Past Medical/Surgical History Has patient received pneumonia vaccine in the past: No Diabetic: No Past Medical History: Reviewed- Non-Contributory -: Asthma -: Raynaud's disease -: ADD Past Surgical History: Reviewed- Non-Contributory -: Tubal ligation -: Teeth Extraction -: Breast Augmentation - Family History Family History: Reviewed- Non-Contributory - Family History Diabetes History Unknown: Yes -: Hypertension, Diabetes - Social History Smoking Status: Never smoker Alcohol use: No CD- Drugs: No Caffeine use: No Place of Residence: Home Review of Systems Unremarkable General: Unremarkable Eyes: Vision Change ENT: Unremarkable Respiratory: Unremarkable Cardiovascular: Unremarkable Gastrointestinal: Nausea, Vomiting Genitourinary: Unremarkable Musculoskeletal: Unremarkable Integumentary: Unremarkable Neurological: Unremarkable Lymphatics: Unremarkable Physical Examination - Physical Exam General: Alert, In no apparent distress, Oriented x3 HEENT: Atraumatic, Normocephalic, PERRLA Neck: Supple, 2+ carotid pulse no bruit Respiratory: Clear to auscultation bilaterally, Normal air movement Cardiovascular: No edema, Normal pulses, Regular rate/rhythm, Normal S1 S2 Capillary refill: <2 Seconds Gastrointestinal: Normal bowel sounds, Soft and benign, Non-distended Musculoskeletal: No clubbing, No swelling Integumentary: No rashes, No breakdown Neurological: Normal gait, Normal speech, Normal strength at 5/5 x4 extr, Sensation intact Lymphatics: No axilla or inguinal lymphadenopathy - Studies Laboratory Data (last 24 hrs) 09/19/23 09/19/23 09/19/23 16:12 16:12 16:12 WBC 7.40 Hgb 9.4 L Hct 30.2 L Plt Count 321 PT 11.2 INR 1.02 APTT 25.9 Sodium 132 L Potassium 3.8 BUN 11 Creatinine 0.74 Glucose 125 H Magnesium 2.0 Assessment and Plan - Plan CVA symptoms: Pt had blurry vision and right eye pain prior to admission. Will r/o CVA. CT head shows a small left basal ganglia lacunar infarct. CTA head and neck unremarkable. Will allow permissive htn. Continue aspirin and atorvastatin. Will follow up MRI brain and Echo. Hypoglycemia: Unknown etiology. Pt's blood glucose improved from 22 to 125 after she took juice. Will r/o insulinoma or factitious hypoglycemia. Will follow up insulin and C-peptide level. I was not able to order pro-insulin and sulphonylurea level. Hyponatremia: Na is 132. Will continue IVF and monitor Na level. Nausea and vomiting: Will continue IVF and prn antiemetic. Hx of Asthma: Will continue prn albuterol. Hx of raynaud's disease: Stable. No discoloration of the fingers and toes. DVT ppx: heparin Code: full Discharge Plan: Home Plan to discharge in: 24 Hours - Advance Directives Does patient have a Living Will: No Does patient have a Durable POA for Healthcare: No - Code Status/Comfort Care Code Status Assessed: Yes Code Status: Full Code
[2023-09-19] MEDS ORDERED: HYDRALAZINE HCL 20 MG/ML VIAL IV PRN (19:47)
[2023-09-19] MEDS ORDERED: ATORVASTATIN 40 MG TAB PO SCH (21:00)
[2023-09-19] MEDS: NA CHLORIDE 0.9% 1,000 ML IV SCH (21:26)
[2023-09-19 22:17] VITALS: O2SAT 99; BMI 23.2
[2023-09-20 03:11] LABS: Absolute Lymphocytes (CBC) 0.7 K/uL (0.7-4.9); Hematocrit 27.4 % (36.0-45.0); Lymphocytes % 13.6 % (15.3-44.8); MPV 7.8 fL (7.6-11.3); Platelets 298 thou/uL (152-406); RBC Red Blood Cell Count 4.04 M/uL (3.86-4.86)
[2023-09-20 03:12] LABS: MCV 67.8 fL (80-100)
[2023-09-20 03:17] LABS: Phosphorus 1.9 mg/dL (2.5-4.9); Potassium 3.9 mEq/L (3.5-5.1)
[2023-09-20 04:47] LABS: Renal Epithelial <5 /HPF (None Seen); Specific Gravity 1.029 (1.005-1.030); Urine Bacteria None Seen /HPF (<20); Urine Bilirubin NEGATIVE (Negative); Urine Blood Negative (Negative); Urine Clarity Clear (Clear); Urine Color Light-Yellow (Yellow); Urine Glucose 2+ (Negative); Urine Mucus Slight /HPF (None Seen); Urine Protein NEGATIVE (Negative); Urine RBC <5 /HPF (None Seen); Urine Urobilinogen Normal (Normal); Urine pH 5.5 (5.0-7.0)
[2023-09-20] MEDS: POTASS/SODIUM PHOSPHATE 1 PKT POWD.PACK PO SCH ×3 (06:41→12:22)
[2023-09-20] MEDS: NA CHLORIDE 0.9% 1,000 ML IV SCH (06:42)
[2023-09-20] MEDS ORDERED: INFLUENZA VACCINE (for 6+ mo) 0.5 ML DOSE IMVAC ONE (08:00)
[2023-09-20] MEDS ORDERED: POTASSIUM CL SA 10 MEQ TAB PO ONE (09:00)
[2023-09-20] MEDS ORDERED: ASPIRIN 81 MG CHEWABLE TABLET PO SCH (09:00)
[2023-09-20] MEDS: HEPARIN 5000 UNIT/ML 1 ML VIAL SQ SCH ×2 (09:46)
[2023-09-20 10:28] VITALS: BP 114/59; TEMP 98.5
--- NOTE | 2023-09-20 11:39 | RAD REPORT ---
EXAM DESCRIPTION: MRI - Brain W/Wo Cont - 09/20/2023 11:08 am CLINICAL HISTORY: MRI brain to r/o CVA COMPARISON: Head CT and CT angiogram of the previous day TECHNIQUE: Multiplanar multisequence MRI of the brain performed before and after intravenous adminis tration of 15 mL MultiHance. FINDINGS: No evidence of acute infarct or other diffusion signal abnormality. Focal prominence in the region of the left central sulcus, may be developmental or related to a small arachnoid cyst. This is unchanged. No evidence of acute intracranial hemorrhage or other abnormal ex tra-axial fluid collections. Mild diffuse parenchymal volume loss. Ventricular caliber otherwise within normal for age. Midline st ructures are unremarkable. No white matter signal abnormalities. No mass effect or midline shift. No abnormal enhancement. Major vascular flow voids are preserved. Mastoid air cells and paranasal sinuses are clear. IMPRESSION: No acute intracranial process. No evidence of abnormal enhancement or mass effect. Possible small arachnoid cyst along the left central sulcus.
[2023-09-20] MEDS ORDERED: POTASS/SODIUM PHOSPHATE 1 PKT POWD.PACK PO SCH (12:00)
--- NOTE | 2023-09-20 12:38 | P.DS ---
Admission Date: 09/19/23 Discharge Date: 09/20/23 Reason for Admission: Headache, blurry vision and vomiting - Problems (1) Hypoglycemia Current Visit: Yes Status: Acute (2) Raynaud's disease Current Visit: Yes Status: Acute (3) Microcytic anemia Current Visit: Yes Status: Acute Brief History of Present Illness: Pt is a 47 yo female with past medical history of ADD, asthma (unknown lung disease that started after the COVID infection) and raynaud's disease who pr esented with blurry vision, right eye pain and vomiting. Pt reported that the blurry vision started while she was driving. She went home and later noticed right eye pain. It was subsequently followed by vomiting. The symptoms progressively worsened and pt came to the ER for evaluation. In the ER, lab studies showed blood glucose of 22. Hgb 7.4, Na 132, Cr 0.74. CT head shows small left basal ganglia lacunar infarct, CTA head and neck are unremarkable. CXR is unremarkable. ER physician gave patient fruit juice and the blood glucose improved to 125. Patient was hospitalized for further evaluation and management. Hospital Course: Patient placed under observation on the medical floor. Workup with MRI of the brain did not show any acute stroke. Patient blood sugar was stable. She tolerated diet. C-peptide and insulin level ordered and the results are pending to be followed as outpatient. Discussed with patient to follow-up with his PCP for further evaluation of the hypoglycemia and prescribed glucose monitoring kit to monitor her blood glucose daily. Given patient has lacunar infarct, she is prescribed aspirin and Lipitor. Also noted patient has microcytic anemia. No reported GI bleed. Patient is currently asymptomatic with stable vitals and deemed stable for discharge. Vital Signs/Physical Exam: Temp Pulse Resp BP Pulse Ox 98.5 F 68 16 114/59 L 99 09/20/23 08:00 09/20/23 08:00 09/20/23 08:00 09/20/23 08:00 09/20/23 08:00 General: Alert, In no apparent distress, Oriented x3 HEENT: Mucous membr. moist/pink Neck: Supple, JVD not distended Respiratory: Clear to auscultation bilaterally, Normal air movement Cardiovascular: No edema, Regular rate/rhythm, Normal S1 S2 Gastrointestinal: Normal bowel sounds, Soft and benign, Non-distended, No tend erness Musculoskeletal: No swelling Integumentary: No rashes Neurological: Normal strength at 5/5 x4 extr Laboratory Data at Discharge: WBC 5.30 thou/uL (4.3-10.9) 09/20/23 01:58 Hgb 8.7 g/dL (12.0-15.0) L 09/20/23 01:58 Hct 27.4 % (36.0-45.0) L 09/20/23 01:58 Plt Count 298 thou/uL (152-406) 09/20/23 01:58 PT 11.2 SECONDS (9.5-12.5) 09/19/23 16:12 INR 1.02 09/19/23 16:12 APTT 25.9 SECONDS (24.3-36.9) 09/19/23 16:12 Sodium 139 mEq/L (136-145) D 09/20/23 01:58 Potassium 3.9 mEq/L (3.5-5.1) 09/20/23 01:58 BUN 9 mg/dL (7-18) 09/20/23 01:58 Creatinine 0.70 mg/dL (0.55-1.02) 09/20/23 01:58 Glucose 126 mg/dL (74-106) H 09/20/23 01:58 Phosphorus 1.9 mg/dL (2.5-4.9) L 09/20/23 01:58 Magnesium 2.0 mg/dL (1.6-2.4) 09/19/23 16:12 Home Medications: Dextroamphetamine/Amphetamine [Adderall Xr 20 mg Capsule] 20 mg PO DAILY 09/19/23 Aspirin Chewable [Aspirin Chewable*] 81 mg PO DAILY #30 tab.chew 09/20/23 Atorvastatin Calcium [Lipitor] 40 mg PO BEDTIME #30 tab 09/20/23 Blood Sugar Diagnostic [Blood Glucose Test Strip] 1 each DAILY #30 strip 09/20/23 Blood-Glucose Meter [Blood Glucose Monitoring] 1 each DAILY #1 kit 09/20/23 New Medications: Aspirin Chewable [Aspirin Chewable*] 81 mg PO DAILY #30 tab.chew Blood-Glucose Meter [Blood Glucose Monitoring] 1 each DAILY #1 kit Blood Sugar Diagnostic [Blood Glucose Test Strip] 1 each DAILY #30 strip Atorvastatin Calcium [Lipitor] 40 mg PO BEDTIME #30 tab Physician Discharge Instructions: Your CT head reported lacunar infarct but your MRI brain did not show any acute stroke. Please call medical records or the 2nd floor nursing station ([phone]) for the final results of your blood test. Diet: AHA Activity: Ad ramos Followup: NONE,NONE [Primary Care Provider] - 1-2 Weeks Time spent managing pt's care (in minutes): 26
--- NOTE | 2023-09-20 17:35 | EKG ---
Test Date: 2023-09-19 Test Time: 16:05:22 Picking Belt Operator: CEM MEASUREMENT RESULTS: Intervals: Rate: 67 GA: 116 QRSD: 90 QT: 428 QTc: 452 Shoup: P: 50 GA: 116 QRS: 79 T: 31 INTERPRETIVE STATEMENTS: Normal sinus rhythm Nonspecific ST and T wave abnormality Abnormal ECG No previous ECG available for comparison Electronically Signed On 09-20-23 17:33:53 DIRECT MARKETING SPECIALIST by Gabriel Novak
--- NOTE | 2023-09-21 06:55 | ECHO ---
HEIGHT: 5 ft 8 in WEIGHT: 152 lb 12.8 oz DATE OF STUDY: 09/20/[address]: Christian Beal MD 2-DIMENSIONAL: YES M.MODE: YES DOPPLER: YES COLOR FLOW: YES TDS: PORTABLE: YES DEFINITY: BUBBLE STUDY: DIAGNOSIS: POSSIBLE CEREBRAL VASCULAR ACCIDENT CARDIAC HISTORY: CATHERIZATION: SURGERY: PROSTHETIC VALVE: PACEMAKER: MEASUREMENTS (cm) DIASTOLIC (NORMALS) SYSTOLIC (NORMALS) IVSd 0.7 (0.6-1.2) LA Diam 3.2 (1.9-4.0) LVEF 76% LVIDd 4.7 (3.5-5.7) LVIDs 2.6 (2.0-3.5) %FS 45% LVPWd 0.9 (0.6-1.2) Ao Diam 2.4 (2.0-3.7) 2 DIMENSIONAL ASSESSMENT: RIGHT ATRIUM: NORMAL LEFT ATRIUM: NORMAL RIGHT VENTRICLE: NORMAL LEFT VENTRICLE: NORMAL TRICUSPID VALVE: NORMAL MITRAL VALVE: TRACE MITRAL REGURGITATION PULMONIC VALVE: NORMAL AORTIC VALVE: NORMAL PERICARDIAL EFFUSION: NONE AORTIC ROOT: NORMAL LEFT VENTRICULAR WALL MOTION: NORMAL DOPPLER/COLOR FLOW: TRACE MITRAL REGURGITATION COMMENTS: 1. NORMAL LEFT VENTRICULAR EJECTION FRACTION 60-65% 2. NORMAL WALL MOTION 3. NORMAL DIASTOLIC FUNCTION TECHNOLOGIST: BETTYE DYSON
== END 2023-09-20 14:25 | disposition home or self-care (01) ==
LOC: ER 15:21 → ERHOLD 18:32 → 2ND 20:57
PROVIDERS: ADMIT Hospitalist; ATTEND Internal Medicine
DX: R51.9 Headache, unspecified (principal); E16.2 Hypoglycemia, unspecified; D64.9 Anemia, unspecified; H53.8 Other visual disturbances; R11.2 Nausea with vomiting, unspecified; F98.8 Other specified behavioral and emotional disorders with onset usually occurring in childhood and adolescence; J45.909 Unspecified asthma, uncomplicated; I73.00 Raynaud's syndrome without gangrene; U09.9 Post COVID-19 condition, unspecified
CPT/HCPCS: 96361; 93005; 93306; 85025 ×2; 81001; 80048 ×2; 36415 ×2; 83735; 84100; 85610; 82565; 82947 ×6; 85730; 84484; 83525; 84681; 70496; 70498; 70450; 71045; 70553; 97116; 97161; 96375; 96374; 99285; Q9967; A9577; J1644 ×2; J2765; J1200; J2930; J7030 ×3; G0378

== ENCOUNTER → 2023-09-23 | Emergency (ER) | payer BC ==
[~2023-09-23] MED LIST: NA CHLORIDE 0.9% 2,000 ML ONE; ONDANSETRON 4 MG/2 ML VIAL ONE
--- OUTSIDE RECORDS SUMMARY | 2023-09-23 17:17 | XMS REPORT | Continuity of Care Document ---
Author Name Unknown Address [address] [facility] [place] [address] [facility] Address [address] [facility] [address] [place] [address] Care Team Providers Care [employer] Name Role Phone Marce Husain MD Primary Care Physician + Marce Husain MD Attending Clinician + [phone] MARCE HUSAIN Attending Clinician Unavailable Doctor Unassigned, [place] Attending Clinician U RAÚL Roblero Attending Clinician Unavail able Leticia Worthington RN Attending Clinician Marie [facility] Unava danette Armando MD, Raúl Murillo Attending Clinician Blossom Carrillo Attending Clinician + [phone] BLOSSOM CHRISTINE Attending Clinician Unavailable Pcp-Lab Attending Clinician Unavailable NATO DURAN Attending Clinician Unavailable NATO DURAN Attending Clinician Unavailable Pob, Ad[facility] Main Attending Clinician Nato Peña DO Attending Clinician [phone] Pob1, [facility] Attending Clinician Unav Roya Bunn Attending Clinician + [phone] ROYA NICHOLS Attending Clinician Unavailable BLOSSOM CHRISTINE Admitting Clinician Unavailable Payers Payer Name Policy Type Policy Number Effective Date Expirati on Date Source Problems Condition Name Condition Details Condition Category Status Onset Date Resolution Date Last Treatment Date Treating Clinician Comments Source Attention deficit disorder (ADD) without hyperactiv ity Attention deficit disorder (ADD) without hyperactiv ity Disease Active 2014-09 00:00: 00 [facility] Allergies, Adverse Reactions, Alerts Allergy Name Allergy Type Status Severity Reaction(s) Onset Date Inactive Date Treating Clinician Comments Source Levoflox acin Propensi ty to adverse reaction s Active Shortness of Breath 2014-09 00:00: 00 [facility] LEVOFLOX ACIN DRUG INGREDI Active SOB 2014-09 00:00: 00 [facility] Social History Social Habit Start Date Stop Date Quantity Comments Source Gender identity [facility] Social function 2023-07-12 00:00:00 2023-07-12 00:00:00 [facility] Alcohol intake 2023-01-07 00:00:00 2023-01-07 00:00:00 0 /d [facility] Exposure to SARS-CoV-2 (event) 2022-12-12 00:00:00 2022-12-22 07:02:00 Not sure [facility] Tobacco use and exposure 2022-06-09 00:00:00 2022-06-09 00:00:00 Smokeless tobacco non-user [facility] Sex Assigned At 1975 00:00:00 1975 00:00:00 [facility] Smoking Status Start Date Stop Date Source Never smoked tobacco [facility] Medications Ordered Medication Name Filled Medication Name Start Date Stop Date Current Medication? Ordering Clinician Indication Dosage Frequency Signature (SIG) Comments Components Source dextroamphe tamine-amph etamine 20 mg tablet 2022-09 00:00: 00 Yes [id number] 20mg Take 1 tablet by mouth in the morning and 1 tablet in the evening. [facility] dextroamphe tamine-amph etamine 20 mg tablet 2022-09 00:00: 00 Yes [id number] 20mg Take 1 tablet by mouth in the morning and 1 tablet in the evening. [facility] montelukast 10 mg tablet 2022-09 00:00: 00 Yes [id number] 10mg Take 1 tablet by mouth in the morning. [facility] dextroamphe tamine-amph etamine 20 mg tablet 2022-09 00:00: 00 Yes [id number] 20mg Take 1 tablet by mouth in the morning and 1 tablet in the evening. [facility] montelukast 10 mg tablet 2022-09 00:00: 00 Yes [id number] 10mg Take 1 tablet by mouth in the morning. [facility] montelukast 10 mg tablet 2022-09 00:00: 00 Yes [id number] 10mg Take 1 tablet by mouth in the morning. [facility] dextroamphe tamine-amph etamine 20 mg tablet 2022-09 00:00: 00 08-30 00:00 :00 No [id number] 20mg Take 1 tablet by mouth in the morning and 1 tablet in the evening. [facility] dextroamphe tamine-amph etamine 20 mg tablet 04-11 00:00: 00 Yes [id number] 20mg Take 1 tablet by mouth in the morning and 1 tablet in the evening. [facility] dextroamphe tamine-amph etamine 20 mg tablet 04-11 00:00: 00 Yes [id number] 20mg Take 1 tablet by mouth in the morning and 1 tablet in the evening. [facility] dextroamphe tamine-amph etamine 20 mg tablet 04-11 00:00: 00 Yes [id number] 20mg Take 1 tablet by mouth in the morning and 1 tablet in the evening. [facility] dextroamphe tamine-amph etamine 20 mg tablet 04-11 00:00: 00 07-12 00:00 :00 No [id number] 20mg Take 1 tablet by mouth in the morning and 1 tablet in the evening. [facility] dextroamphe tamine-amph etamine 20 mg tablet 04-11 00:00: 00 07-12 00:00 :00 No [id number] 20mg Take 1 tablet by mouth in the morning and 1 tablet in the evening. [facility] dextroamphe tamine-amph etamine 20 mg tablet 0 625 00:00: 00 Yes [id number] 20mg Take 1 tablet by mouth in the morning and 1 tablet in the evening. [facility] dextroamphe tamine-amph etamine 20 mg tablet 0 25 00:00: 00 04-10 00:00 :00 No [id number] 20mg Take 1 tablet by mouth in the morning and 1 tablet in the evening. [facility] dextroamphe tamine-amph etamine 20 mg tablet 0 5-15 00:00: 00 Yes [id number] 20mg Take 1 tablet by mouth in the morning and 1 tablet in the evening. [facility] dextroamphe tamine-amph etamine 20 mg tablet 0 5-15 00:00: 00 Yes [id number] 20mg Take 1 tablet by mouth in the morning and 1 tablet in the evening. [facility] dextroamphe tamine-amph etamine 20 mg tablet 15 00:00: 00 03-05 00:00 :00 No [id number] 20mg Take 1 tablet by mouth in the morning and 1 tablet in the evening. [facility] mycophenola te mofetil 500 mg tablet 0 01-07 00:00: 00 Yes [id number] 500mg Take 1 tablet by mouth every 12 (twelve) hours. [facility] mycophenola te mofetil 500 mg tablet 0 29 00:00: 00 Yes [id number] 500mg Take 1 tablet by mouth every 12 (twelve) hours. [facility] mycophenola te mofetil 500 mg tablet 0 29 00:00: 00 Yes [id number] 500mg Take 1 tablet by mouth every 12 (twelve) hours. [facility] mycophenola te mofetil 500 mg tablet 0 29 00:00: 00 Yes [id number] 500mg Take 1 tablet by mouth every 12 (twelve) hours. [facility] mycophenola te mofetil 500 mg tablet 0 29 00:00: 00 Yes [id number] 500mg Take 1 tablet by mouth every 12 (twelve) hours. [facility] mycophenola te mofetil 500 mg tablet 2022-0 29 00:00: 00 Yes [id number] 500mg Take 1 tablet by mouth every 12 (twelve) hours. [facility] mycophenola te mofetil 500 mg tablet 2022-0 29 00:00: 00 Yes [id number] 500mg Take 1 tablet by mouth every 12 (twelve) hours. [facility] mycophenola te mofetil 500 mg tablet 2022-0 01-07 00:00: 00 Yes [id number] 500mg Take 1 tablet by mouth every 12 (twelve) hours. [facility] mycophenola te mofetil 500 mg tablet 0 01-07 00:00: 00 Yes [id number] 500mg Take 1 tablet by mouth every 12 (twelve) hours. [facility] mycophenola te mofetil 500 mg tablet 2022-0 01-07 00:00: 00 Yes [id number] 500mg Take 1 tablet by mouth every 12 (twelve) hours. [facility] mycophenola te mofetil 500 mg tablet 2022-0 01-07 00:00: 00 Yes [id number] 500mg Take 1 tablet by mouth every 12 (twelve) hours. [facility] mycophenola te mofetil 500 mg tablet 2022-0 01-07 00:00: 00 Yes [id number] 500mg Take 1 tablet by mouth every 12 (twelve) hours. [facility] mycophenola te mofetil 500 mg tablet 2022-0 29 00:00: 00 Yes [id number] 500mg Take 1 tablet by mouth every 12 (twelve) hours. [facility] polymyxin B sulf-trimet hoprim 10,000 unit- 1 mg/mL ophthalmic drops 0 12-22 00:00: 00 Yes [id number] 9104 Apply 1 drop to both eyes every 3 hours while awake for 7 days. [facility] polymyxin B sulf-trimet hoprim 10,000 unit- 1 mg/mL ophthalmic drops 2022-0 13 00:00: 00 Yes [id number] 9104 Apply 1 drop to both eyes every 3 hours while awake for 7 days. [facility] polymyxin B sulf-trimet hoprim 10,000 unit- 1 mg/mL ophthalmic drops 12-22 00:00: 00 Yes [id number] 9104 Apply 1 drop to both eyes every 3 hours while awake for 7 days. [facility] polymyxin B sulf-trimet hoprim 10,000 unit- 1 mg/mL ophthalmic drops 12-22 00:00: 00 Yes [id number] 9104 Apply 1 drop to both eyes every 3 hours while awake for 7 days. [facility] polymyxin B sulf-trimet hoprim 10,000 unit- 1 mg/mL ophthalmic drops 12-22 00:00: 00 Yes [id number] 9104 Apply 1 drop to both eyes every 3 hours while awake for 7 days. [facility] polymyxin B sulf-trimet hoprim 10,000 unit- 1 mg/mL ophthalmic drops 12-22 00:00: 00 Yes [id number] 9104 Apply 1 drop to both eyes every 3 hours while awake for 7 days. [facility] polymyxin B sulf-trimet hoprim 10,000 unit- 1 mg/mL ophthalmic drops 12-22 00:00: 00 Yes [id number] 9104 Apply 1 drop to both eyes every 3 hours while awake for 7 days. [facility] polymyxin B sulf-trimet hoprim 10,000 unit- 1 mg/mL ophthalmic drops 12-22 00:00: 00 Yes [id number] 9104 Apply 1 drop to both eyes every 3 hours while awake for 7 days. [facility] polymyxin B sulf-trimet hoprim 10,000 unit- 1 mg/mL ophthalmic drops 12-22 00:00: 00 Yes [id number] 9104 Apply 1 drop to both eyes every 3 hours while awake for 7 days. [facility] polymyxin B sulf-trimet hoprim 10,000 unit- 1 mg/mL ophthalmic drops - 00:00: 00 Yes [id number] 9104 Apply 1 drop to both eyes every 3 hours while awake for 7 days. [facility] polymyxin B sulf-trimet hoprim 10,000 unit- 1 mg/mL ophthalmic drops 12-22 00:00: 00 Yes [id number] 9104 Apply 1 drop to both eyes every 3 hours while awake for 7 days. [facility] polymyxin B sulf-trimet hoprim 10,000 unit- 1 mg/mL ophthalmic drops 12-22 00:00: 00 Yes [id number] 9104 Apply 1 drop to both eyes every 3 hours while awake for 7 days. [facility] polymyxin B sulf-trimet hoprim 10,000 unit- 1 mg/mL ophthalmic drops 12-22 00:00: 00 Yes [id number] 9104 Apply 1 drop to both eyes every 3 hours while awake for 7 days. [facility] polymyxin B sulf-trimet hoprim 10,000 unit- 1 mg/mL ophthalmic drops 12-22 00:00: 00 Yes [id number] 9104 Apply 1 drop to both eyes every 3 hours while awake for 7 days. [facility] dextroamphe tamine-amph etamine 20 mg tablet 12-09 00:00: 00 Yes [id number] 20mg Take 1 tablet by mouth in the morning and 1 tablet in the evening. [facility] dextroamphe tamine-amph etamine 20 mg tablet 0 12-09 00:00: 00 Yes [id number] 20mg Take 1 tablet by mouth in the morning and 1 tablet in the evening. [facility] dextroamphe tamine-amph etamine 20 mg tablet 0 12-09 00:00: 00 Yes [id number] 20mg Take 1 tablet by mouth in the morning and 1 tablet in the evening. [facility] dextroamphe tamine-amph etamine 20 mg tablet 0 12-09 00:00: 00 Yes [id number] 20mg Take 1 tablet by mouth in the morning and 1 tablet in the evening. [facility] dextroamphe tamine-amph etamine 20 mg tablet 2022-0 12-09 00:00: 00 Yes [id number] 20mg Take 1 tablet by mouth in the morning and 1 tablet in the evening. [facility] dextroamphe tamine-amph etamine 20 mg tablet 3 00:00: 00 Yes [id number] 20mg Take 1 tablet by mouth in the morning and 1 tablet in the evening. [facility] dextroamphe tamine-amph etamine 20 mg tablet 3 00:00: 00 Yes [id number] 20mg Take 1 tablet by mouth in the morning and 1 tablet in the evening. [facility] dextroamphe tamine-amph etamine 20 mg tablet 12-09 00:00: 00 Yes [id number] 20mg Take 1 tablet by mouth in the morning and 1 tablet in the evening. [facility] dextroamphe tamine-amph etamine 20 mg tablet 12-09 00:00: 00 01-23 00:00 :00 No [id number] 20mg Take 1 tablet by mouth in the morning and 1 tablet in the evening. [facility] dextroamphe tamine-amph etamine 20 mg tablet 2021-09 00:00: 00 Yes [id number] 20mg Take 1 tablet by mouth in the morning and 1 tablet in the evening. [facility] dextroamphe tamine-amph etamine 20 mg tablet 2021-09 00:00: 00 Yes [id number] 20mg Take 1 tablet by mouth in the morning and 1 tablet in the evening. [facility] dextroamphe tamine-amph etamine 20 mg tablet 2021-09 00:00: 00 Yes [id number] 20mg Take 1 tablet by mouth in the morning and 1 tablet in the evening. [facility] dextroamphe tamine-amph etamine 20 mg tablet 2021-09 00:00: 00 Yes [id number] 20mg Take 1 tablet by mouth in the morning and 1 tablet in the evening. [facility] dextroamphe tamine-amph etamine 20 mg tablet 2021-09 00:00: 00 Yes [id number] 20mg Take 1 tablet by mouth in the morning and 1 tablet in the evening. [facility] dextroamphe tamine-amph etamine 20 mg tablet 2021-09 00:00: 00 Yes [id number] 20mg Take 1 tablet by mouth in the morning and 1 tablet in the evening. [facility] dextroamphe tamine-amph etamine 20 mg tablet 2021-09 00:00: 00 Yes [id number] 20mg Take 1 tablet by mouth in the morning and 1 tablet in the evening. [facility] dextroamphe tamine-amph etamine 20 mg tablet 2021-09 00:00: 00 Yes [id number] 20mg Take 1 tablet by mouth in the morning and 1 tablet in the evening. [facility] dextroamphe tamine-amph etamine 20 mg tablet 2021-09 00:00: 00 12-09 00:00 :00 No [id number] 20mg Take 1 tablet by mouth in the morning and 1 tablet in the evening. [facility] dextroamphe tamine-amph etamine 20 mg tablet 2021-09 00:00: 00 12-09 00:00 :00 No [id number] 20mg Take 1 tablet by mouth in the morning and 1 tablet in the evening. [facility] dextroamphe tamine-amph etamine 20 mg tablet 2021-09 00:00: 00 Yes [id number] 20mg Take 1 tablet by mouth in the morning and 1 tablet in the evening. [facility] dextroamphe tamine-amph etamine 20 mg tablet 2021-09 00:00: 00 09-01 00:00 :00 No [id number] 20mg Take 1 tablet by mouth in the morning and 1 tablet in the evening. [facility] MONTELUKAST 10 mg tablet 2021-09 00:00: 00 Yes [id number] 10mg TAKE 1 TABLET BY MOUTH IN THE MORNING [facility] MONTELUKAST 10 mg tablet 2021-09 00:00: 00 Yes [id number] 10mg TAKE 1 TABLET BY MOUTH IN THE MORNING [facility] MONTELUKAST 10 mg tablet 2021-09 00:00: 00 Yes [id number] 10mg TAKE 1 TABLET BY MOUTH IN THE MORNING [facility] 2021-09 00:00: 00 Yes [id number] 10mg TAKE 1 TABLET BY MOUTH IN THE MORNING [facility] MONT[facility] mg tablet 2021-09 00:00: 00 Yes [id number] 10mg TAKE 1 TABLET BY MOUTH IN THE MORNING [facility] MONTELUK[facility] mg tablet 2021-09 00:00: 00 Yes [id number] 10mg TAKE 1 TABLET BY MOUTH IN THE MORNING [facility] MONTELUKAST 10 mg tablet 2021-09 00:00: 00 Yes [id number] 10mg TAKE 1 TABLET BY MOUTH IN THE MORNING [facility] MONTELUKAST 10 mg tablet 2021-09 00:00: 00 Yes [id number] 10mg TAKE 1 TABLET BY MOUTH IN THE MORNING [facility] MONTELUKAST 10 mg tablet 2021-09 00:00: 00 Yes [id number] 10mg TAKE 1 TABLET BY MOUTH IN THE MORNING [facility] MONTELUKAST 10 mg tablet 2021-09 00:00: 00 Yes [id number] 10mg TAKE 1 TABLET BY MOUTH IN THE MORNING [facility] MONTELUKAST 10 mg tablet 2021-09 00:00: 00 Yes [id number] 10mg TAKE 1 TABLET BY MOUTH IN THE MORNING [facility] MONTELUKAST 10 mg tablet 2021-09 00:00: 00 Yes [id number] 10mg TAKE 1 TABLET BY MOUTH IN THE MORNING [facility] MONTELUK[facility] mg tablet 2021-09 00:00: 00 Yes [id number] 10mg TAKE 1 TABLET BY MOUTH IN THE MORNING [facility] MONTELUKAST 10 mg tablet 2021-09 00:00: 00 Yes [id number] 10mg TAKE 1 TABLET BY MOUTH IN THE MORNING [facility] MONTELUKAST 10 mg tablet 2021-09 00:00: 00 Yes [id number] 10mg TAKE 1 TABLET BY MOUTH IN THE MORNING [facility] MONTELUKAST 10 mg tablet 2021-09 00:00: 00 Yes [id number] 10mg TAKE 1 TABLET BY MOUTH IN THE MORNING [facility] MONTELUKAST 10 mg tablet 2021-09 00:00: 00 Yes [id number] 10mg TAKE 1 TABLET BY MOUTH IN THE MORNING [facility] MONTELUKAST 10 mg tablet 2021-09 00:00: 00 Yes [id number] 10mg TAKE 1 TABLET BY MOUTH IN THE MORNING [facility] MONTELUKAST 10 mg tablet 2021-09 00:00: 00 Yes [id number] 10mg TAKE 1 TABLET BY MOUTH IN THE MORNING [facility] MONTELUKAST 10 mg tablet 2021-09 00:00: 00 Yes [id number] 10mg TAKE 1 TABLET BY MOUTH IN THE MORNING [facility] MONTELUKAST 10 mg tablet 2021-09 00:00: 00 Yes [id number] 10mg TAKE 1 TABLET BY MOUTH IN THE MORNING [facility] MONTELUKAST 10 mg tablet 2021-09 00:00: 00 Yes [id number] 10mg TAKE 1 TABLET BY MOUTH IN THE MORNING [facility] MONTELUKAST 10 mg tablet 2021-09 00:00: 00 Yes [id number] 10mg TAKE 1 TABLET BY MOUTH IN THE MORNING [facility] MONTELUKAST 10 mg tablet 2021-09 00:00: 00 Yes [id number] 10mg TAKE 1 TABLET BY MOUTH IN THE MORNING [facility] MONTELUKAST 10 mg tablet 2021-09 00:00: 00 Yes [id number] 10mg TAKE 1 TABLET BY MOUTH IN THE MORNING [facility] MONTELUKAST 10 mg tablet 2021-09 00:00: 00 Yes [id number] 10mg TAKE 1 TABLET BY MOUTH IN THE MORNING [facility] MONTELUKAST 10 mg tablet 2021-09 00:00: 00 Yes [id number] 10mg TAKE 1 TABLET BY MOUTH IN THE MORNING [facility] MONTELUKAST 10 mg tablet 2021-09 00:00: 00 Yes [id number] 10mg TAKE 1 TABLET BY MOUTH IN THE MORNING [facility] MONTELUKAST 10 mg tablet 2021-09 00:00: 00 Yes [id number] 10mg TAKE 1 TABLET BY MOUTH IN THE MORNING [facility] MONTELUKAST 10 mg tablet 2021-09 00:00: 00 Yes [id number] 10mg TAKE 1 TABLET BY MOUTH IN THE MORNING [facility] azelastine 137 mcg (0.1 %) nasal spray 06-09 00:00: 00 Yes [id number] 1{spray } Use 1 [place] in each nostril in the morning and 1 [place] in the evening. Use in each nostril as directed [facility] azelastine 137 mcg (0.1 %) nasal spray 06-09 00:00: 00 Yes [id number] 1{spray } Use 1 [place] in each nostril in the morning and 1 [place] in the evening. Use in each nostril as directed [facility] azelastine 137 mcg (0.1 %) nasal spray 06-09 00:00: 00 Yes [id number] 1{spray } Use 1 [place] in each nostril in the morning and 1 [place] in the evening. Use in each nostril as directed [facility] azelastine 137 mcg (0.1 %) nasal spray 06-09 00:00: 00 Yes [id number] 1{spray } Use 1 [place] in each nostril in the morning and 1 [place] in the evening. Use in each nostril as directed [facility] azelastine 137 mcg (0.1 %) nasal spray 06-09 00:00: 00 Yes [id number] 1{spray } Use 1 [place] in each nostril in the morning and 1 [place] in the evening. Use in each nostril as directed [facility] azelastine 137 mcg (0.1 %) nasal spray 06-09 00:00: 00 Yes [id number] 1{spray } Use 1 [place] in each nostril in the morning and 1 [place] in the evening. Use in each nostril as directed [facility] azelastine 137 mcg (0.1 %) nasal spray 06-09 00:00: 00 Yes [id number] 1{spray } Use 1 [place] in each nostril in the morning and 1 [place] in the evening. Use in each nostril as directed [facility] azelastine 137 mcg (0.1 %) nasal spray 06-09 00:00: 00 Yes [id number] 1{spray } Use 1 [place] in each nostril in the morning and 1 [place] in the evening. Use in each nostril as directed [facility] azelastine 137 mcg (0.1 %) nasal spray 06-09 00:00: 00 Yes [id number] 1{spray } Use 1 [place] in each nostril in the morning and 1 [place] in the evening. Use in each nostril as directed [facility] azelastine 137 mcg (0.1 %) nasal spray 06-09 00:00: 00 Yes [id number] 1{spray } Use 1 [place] in each nostril in the morning and 1 [place] in the evening. Use in each nostril as directed [facility] azelastine 137 mcg (0.1 %) nasal spray 06-09 00:00: 00 Yes [id number] 1{spray } Use 1 [place] in each nostril in the morning and 1 [place] in the evening. Use in each nostril as directed [facility] azelastine 137 mcg (0.1 %) nasal spray 06-09 00:00: 00 Yes [id number] 1{spray } Use 1 [place] in each nostril in the morning and 1 [place] in the evening. Use in each nostril as directed [facility] azelastine 137 mcg (0.1 %) nasal spray 06-09 00:00: 00 Yes [id number] 1{spray } Use 1 [place] in each nostril in the morning and 1 [place] in the evening. Use in each nostril as directed [facility] azelastine 137 mcg (0.1 %) nasal spray 06-09 00:00: 00 Yes [id number] 1{spray } Use 1 [place] in each nostril in the morning and 1 [place] in the evening. Use in each nostril as directed [facility] azelastine 137 mcg (0.1 %) nasal spray 06-09 00:00: 00 Yes [id number] 1{spray } Use 1 [place] in each nostril in the morning and 1 [place] in the evening. Use in each nostril as directed [facility] azelastine 137 mcg (0.1 %) nasal spray 06-09 00:00: 00 Yes [id number] 1{spray } Use 1 [place] in each nostril in the morning and 1 [place] in the evening. Use in each nostril as directed [facility] azelastine 137 mcg (0.1 %) nasal spray 06-09 00:00: 00 Yes [id number] 1{spray } Use 1 [place] in each nostril in the morning and 1 [place] in the evening. Use in each nostril as directed [facility] azelastine 137 mcg (0.1 %) nasal spray 06-09 00:00: 00 Yes [id number] 1{spray } Use 1 [place] in each nostril in the morning and 1 [place] in the evening. Use in each nostril as directed [facility] azelastine 137 mcg (0.1 %) nasal spray 06-09 00:00: 00 Yes [id number] 1{spray } Use 1 [place] in each nostril in the morning and 1 [place] in the evening. Use in each nostril as directed [facility] azelastine 137 mcg (0.1 %) nasal spray 06-09 00:00: 00 Yes [id number] 1{spray } Use 1 [place] in each nostril in the morning and 1 [place] in the evening. Use in each nostril as directed [facility] azelastine 137 mcg (0.1 %) nasal spray 06-09 00:00: 00 Yes [id number] 1{spray } Use 1 [place] in each nostril in the morning and 1 [place] in the evening. Use in each nostril as directed [facility] azelastine 137 mcg (0.1 %) nasal spray 06-09 00:00: 00 Yes [id number] 1{spray } Use 1 [place] in each nostril in the morning and 1 [place] in the evening. Use in each nostril as directed [facility] azelastine 137 mcg (0.1 %) nasal spray 06-09 00:00: 00 Yes [id number] 1{spray } Use 1 [place] in each nostril in the morning and 1 [place] in the evening. Use in each nostril as directed [facility] azelastine 137 mcg (0.1 %) nasal spray 06-09 00:00: 00 Yes [id number] 1{spray } Use 1 [place] in each nostril in the morning and 1 [place] in the evening. Use in each nostril as directed [facility] montelukast 10 mg tablet 06-09 00:00: 00 Yes [id number] 10mg Take 1 tablet by mouth in the morning. [facility] azelastine 137 mcg (0.1 %) nasal spray 06-09 00:00: 00 Yes [id number] 1{spray } Use 1 [place] in each nostril in the morning and 1 [place] in the evening. Use in each nostril as directed [facility] montelukast 10 mg tablet 06-09 00:00: 00 Yes [id number] 10mg Take 1 tablet by mouth in the morning. [facility] azelastine 137 mcg (0.1 %) nasal spray 06-09 00:00: 00 Yes [id number] 1{spray } Use 1 [place] in each nostril in the morning and 1 [place] in the evening. Use in each nostril as directed [facility] montelukast 10 mg tablet 06-09 00:00: 00 Yes [id number] 10mg Take 1 tablet by mouth in the morning. [facility] azelastine 137 mcg (0.1 %) nasal spray 06-09 00:00: 00 Yes [id number] 1{spray } Use 1 [place] in each nostril in the morning and 1 [place] in the evening. Use in each nostril as directed [facility] montelukast 10 mg tablet 06-09 00:00: 00 Yes [id number] 10mg Take 1 tablet by mouth in the morning. [facility] azelastine 137 mcg (0.1 %) nasal spray 06-09 00:00: 00 Yes [id number] 1{spray } Use 1 [place] in each nostril in the morning and 1 [place] in the evening. Use in each nostril as directed [facility] montelukast 10 mg tablet 06-09 00:00: 00 Yes [id number] 10mg Take 1 tablet by mouth in the morning. [facility] azelastine 137 mcg (0.1 %) nasal spray 06-09 00:00: 00 Yes [id number] 1{spray } Use 1 [place] in each nostril in the morning and 1 [place] in the evening. Use in each nostril as directed [facility] montelukast 10 mg tablet 06-09 00:00: 00 Yes [id number] 10mg Take 1 tablet by mouth in the morning. [facility] azelastine 137 mcg (0.1 %) nasal spray 06-09 00:00: 00 Yes [id number] 1{spray } Use 1 [place] in each nostril in the morning and 1 [place] in the evening. Use in each nostril as directed [facility] montelukast 10 mg tablet 06-09 00:00: 00 Yes [id number] 10mg Take 1 tablet by mouth in the morning. [facility] azelastine 137 mcg (0.1 %) nasal spray 06-09 00:00: 00 Yes [id number] 1{spray } Use 1 [place] in each nostril in the morning and 1 [place] in the evening. Use in each nostril as directed [facility] montelukast 10 mg tablet 06-09 00:00: 00 Yes [id number] 10mg Take 1 tablet by mouth in the morning. [facility] azelastine 137 mcg (0.1 %) nasal spray 06-09 00:00: 00 Yes [id number] 1{spray } Use 1 [place] in each nostril in the morning and 1 [place] in the evening. Use in each nostril as directed [facility] montelukast 10 mg tablet 06-09 00:00: 00 Yes [id number] 10mg Take 1 tablet by mouth in the morning. [facility] azelastine 137 mcg (0.1 %) nasal spray 06-09 00:00: 00 Yes [id number] 1{spray } Use 1 [place] in each nostril in the morning and 1 [place] in the evening. Use in each nostril as directed [facility] montelukast 10 mg tablet 06-09 00:00: 00 Yes [id number] 10mg Take 1 tablet by mouth in the morning. [facility] azelastine 137 mcg (0.1 %) nasal spray 06-09 00:00: 00 Yes [id number] 1{spray } Use 1 [place] in each nostril in the morning and 1 [place] in the evening. Use in each nostril as directed [facility] montelukast 10 mg tablet 06-09 00:00: 00 Yes [id number] 10mg Take 1 tablet by mouth in the morning. [facility] azelastine 137 mcg (0.1 %) nasal spray 06-09 00:00: 00 Yes [id number] 1{spray } Use 1 [place] in each nostril in the morning and 1 [place] in the evening. Use in each nostril as directed [facility] montelukast 10 mg tablet 06-09 00:00: 00 Yes [id number] 10mg Take 1 tablet by mouth in the morning. [facility] azelastine 137 mcg (0.1 %) nasal spray 06-09 00:00: 00 Yes [id number] 1{spray } Use 1 [place] in each nostril in the morning and 1 [place] in the evening. Use in each nostril as directed [facility] montelukast 10 mg tablet 06-09 00:00: 00 Yes [id number] 10mg Take 1 tablet by mouth in the morning. [facility] azelastine 137 mcg (0.1 %) nasal spray 06-09 00:00: 00 Yes [id number] 1{spray } Use 1 [place] in each nostril in the morning and 1 [place] in the evening. Use in each nostril as directed [facility] azelastine 137 mcg (0.1 %) nasal spray 06-09 00:00: 00 Yes [id number] 1{spray } Use 1 [place] in each nostril in the morning and 1 [place] in the evening. Use in each nostril as directed [facility] azelastine 137 mcg (0.1 %) nasal spray 06-09 00:00: 00 Yes [id number] 1{spray } Use 1 [place] in each nostril in the morning and 1 [place] in the evening. Use in each nostril as directed [facility] azelastine 137 mcg (0.1 %) nasal spray 06-09 00:00: 00 Yes [id number] 1{spray } Use 1 [place] in each nostril in the morning and 1 [place] in the evening. Use in each nostril as directed [facility] azelastine 137 mcg (0.1 %) nasal spray 06-09 00:00: 00 Yes [id number] 1{spray } Use 1 [place] in each nostril in the morning and 1 [place] in the evening. Use in each nostril as directed [facility] azelastine 137 mcg (0.1 %) nasal spray 06-09 00:00: 00 Yes [id number] 1{spray } Use 1 [place] in each nostril in the morning and 1 [place] in the evening. Use in each nostril as directed [facility] azelastine 137 mcg (0.1 %) nasal spray 06-09 00:00: 00 Yes [id number] 1{spray } Use 1 [place] in each nostril in the morning and 1 [place] in the evening. Use in each nostril as directed [facility] montelukast 10 mg tablet 06-09 00:00: 00 07-14 00:00 :00 No [id number] 10mg Take 1 tablet by mouth in the morning. [facility] dextroamphe tamine-amph etamine 20 mg tablet 06-06 00:00: 00 Yes [id number] 20mg Take 1 tablet by mouth in the morning and 1 tablet in the evening. [facility] dextroamphe tamine-amph etamine 20 mg tablet 06-06 00:00: 00 Yes [id number] 20mg Take 1 tablet by mouth in the morning and 1 tablet in the evening. [facility] dextroamphe tamine-amph etamine 20 mg tablet 06-06 00:00: 00 Yes [id number] 20mg Take 1 tablet by mouth in the morning and 1 tablet in the evening. [facility] dextroamphe tamine-amph etamine 20 mg tablet 06-06 00:00: 00 Yes [id number] 20mg Take 1 tablet by mouth in the morning and 1 tablet in the evening. [facility] dextroamphe tamine-amph etamine 20 mg tablet 06-06 00:00: 00 Yes [id number] 20mg Take 1 tablet by mouth in the morning and 1 tablet in the evening. [facility] dextroamphe tamine-amph etamine 20 mg tablet 06-06 00:00: 00 Yes [id number] 20mg Take 1 tablet by mouth in the morning and 1 tablet in the evening. [facility] dextroamphe tamine-amph etamine 20 mg tablet 2021-0 06-06 00:00: 00 Yes [id number] 20mg Take 1 tablet by mouth in the morning and 1 tablet in the evening. [facility] dextroamphe tamine-amph etamine 20 mg tablet 0 06-06 00:00: 00 Yes [id number] 20mg Take 1 tablet by mouth in the morning and 1 tablet in the evening. [facility] dextroamphe tamine-amph etamine 20 mg tablet 2021-0 06-06 00:00: 00 Yes [id number] 20mg Take 1 tablet by mouth in the morning and 1 tablet in the evening. [facility] dextroamphe tamine-amph etamine 20 mg tablet 0 06-06 00:00: 00 Yes [id number] 20mg Take 1 tablet by mouth in the morning and 1 tablet in the evening. [facility] dextroamphe tamine-amph etamine 20 mg tablet 0 06-06 00:00: 00 Yes [id number] 20mg Take 1 tablet by mouth in the morning and 1 tablet in the evening. [facility] dextroamphe tamine-amph etamine 20 mg tablet 2021-0 06-06 00:00: 00 Yes [id number] 20mg Take 1 tablet by mouth in the morning and 1 tablet in the evening. [facility] dextroamphe tamine-amph etamine 20 mg tablet 2021-0 06-06 00:00: 00 Yes [id number] 20mg Take 1 tablet by mouth in the morning and 1 tablet in the evening. [facility] dextroamphe tamine-amph etamine 20 mg tablet 2021-0 06-06 00:00: 00 Yes [id number] 20mg Take 1 tablet by mouth in the morning and 1 tablet in the evening. [facility] dextroamphe tamine-amph etamine 20 mg tablet 2021-0 06-06 00:00: 00 Yes [id number] 20mg Take 1 tablet by mouth in the morning and 1 tablet in the evening. [facility] dextroamphe tamine-amph etamine 20 mg tablet 2021-0 06-06 00:00: 00 Yes [id number] 20mg Take 1 tablet by mouth in the morning and 1 tablet in the evening. [facility] dextroamphe tamine-amph etamine 20 mg tablet 9-26 00:00: 00 08-01 00:00 :00 No [id number] 20mg Take 1 tablet by mouth in the morning and 1 tablet in the evening. [facility] dextroamphe tamine-amph etamine 20 mg tablet 8-15 00:00: 00 Yes [id number] 20mg Take 1 tablet by mouth in the morning and 1 tablet in the evening. [facility] dextroamphe tamine-amph etamine 20 mg tablet 8-15 00:00: 00 06-06 00:00 :00 No [id number] 20mg Take 1 tablet by mouth in the morning and 1 tablet in the evening. [facility] azithromyci n 250 mg tablet 0 7-14 00:00: 00 Yes [id number] 250mg Take 1 tablet by mouth in the morning. [facility] azithromyci n 250 mg tablet 0 714 00:00: 00 Yes [id number] 250mg Take 1 tablet by mouth in the morning. [facility] azithromyci n 250 mg tablet 0 14 00:00: 00 Yes [id number] 250mg Take 1 tablet by mouth in the morning. [facility] azithromyci n 250 mg tablet 0 714 00:00: 00 06-09 00:00 :00 No [id number] 250mg Take 1 tablet by mouth in the morning. [facility] azithromyci n 250 mg tablet 0 7-14 00:00: 00 06-09 00:00 :00 No [id number] 250mg Take 1 tablet by mouth in the morning. [facility] azithromyci n 250 mg tablet 0 03-17 00:00: 00 Yes [id number] 250mg Take 1 tablet by mouth daily. [facility] azithromyci n 250 mg tablet 03-17 00:00: 00 Yes [id number] 250mg Take 1 tablet by mouth daily. [facility] azithromyci n 250 mg tablet 03-17 00:00: 00 03-24 00:00 :00 No [id number] 250mg Take 1 tablet by mouth daily. [facility] dextroamphe tamine-amph etamine 20 mg tablet 03-16 00:00: 00 Yes [id number] 20mg Take 1 tablet by mouth 2 (two) times daily. [facility] dextroamphe tamine-amph etamine 20 mg tablet 03-16 00:00: 00 Yes [id number] 20mg Take 1 tablet by mouth 2 (two) times daily. [facility] dextroamphe tamine-amph etamine 20 mg tablet 03-16 00:00: 00 Yes [id number] 20mg Take 1 tablet by mouth 2 (two) times daily. [facility] dextroamphe tamine-amph etamine 20 mg tablet 03-16 00:00: 00 04-25 00:00 :00 No [id number] 20mg Take 1 tablet by mouth 2 (two) times daily. [facility] azithromyci n 250 mg tablet 2020-09 00:00: 00 Yes [id number] 250mg Take 1 tablet by mouth daily. [facility] azithromyci n 250 mg tablet 2020-09 00:00: 00 Yes [id number] 250mg Take 1 tablet by mouth daily. [facility] azithromyci n 250 mg tablet 2020-09 00:00: 00 03-24 00:00 :00 No [id number] 250mg Take 1 tablet by mouth daily. [facility] cefUROXime 500 mg tablet 02-16 00:00: 00 Yes [id number] 500mg Take 1 tablet by mouth 2 (two) times daily. [facility] cefUROXime 500 mg tablet 02-16 00:00: 00 Yes [id number] 500mg Take 1 tablet by mouth 2 (two) times daily. [facility] cefUROXime 500 mg tablet 0 02-16 00:00: 00 Yes [id number] 500mg Take 1 tablet by mouth 2 (two) times daily. [facility] cefUROXime 500 mg tablet 0 02-16 00:00: 00 Yes [id number] 500mg Take 1 tablet by mouth 2 (two) times daily. [facility] cefUROXime 500 mg tablet 02-16 00:00: 00 Yes [id number] 500mg Take 1 tablet by mouth 2 (two) times daily. [facility] cefUROXime 500 mg tablet 02-16 00:00: 00 06-09 00:00 :00 No [id number] 500mg Take 1 tablet by mouth 2 (two) times daily. [facility] cefUROXime 500 mg tablet 02-16 00:00: 00 06-09 00:00 :00 No [id number] 500mg Take 1 tablet by mouth 2 (two) times daily. [facility] hydrocodone -chlorpheni ramine (TUSSIONEX PENNKINETIC ER) 10-8 mg/5 mL suspension 0 11-17 00:00: 00 Yes [id number] 5mL Take 5 mL by mouth every 12 (twelve) hours as needed for Cough. [facility] hydrocodone -chlorpheni ramine (TUSSIONEX PENNKINETIC ER) 10-8 mg/5 mL suspension 0 11-17 00:00: 00 Yes [id number] 5mL Take 5 mL by mouth every 12 (twelve) hours as needed for Cough. [facility] hydrocodone -chlorpheni ramine (TUSSIONEX PENNKINETIC ER) 10-8 mg/5 mL suspension 0 11-17 00:00: 00 Yes [id number] 5mL Take 5 mL by mouth every 12 (twelve) hours as needed for Cough. [facility] hydrocodone -chlorpheni ramine (TUSSIONEX PENNKINETIC ER) 10-8 mg/5 mL suspension 0 3- 00:00: 00 Yes [id number] 5mL Take 5 mL by mouth every 12 (twelve) hours as needed for Cough. [facility] hydrocodone -chlorpheni ramine (TUSSIONEX PENNKINETIC ER) 10-8 mg/5 mL suspension 11-17 00:00: 00 Yes [id number] 5mL Take 5 mL by mouth every 12 (twelve) hours as needed for Cough. [facility] hydrocodone -chlorpheni ramine (TUSSIONEX PENNKINETIC ER) 10-8 mg/5 mL suspension 11-17 00:00: 06-09 00:00 :00 No [id number] 5mL Take 5 mL by mouth every 12 (twelve) hours as needed for Cough. [facility] hydrocodone -chlorpheni ramine (TUSSIONEX PENNKINETIC ER) 10-8 mg/5 mL suspension 11-17 00:00: 00 06-09 00:00 :00 No [id number] 5mL Take 5 mL by mouth every 12 (twelve) hours as needed for Cough. [facility] FLUoxetine (PROZAC) 20 mg capsule 11-20 00:00: 00 Yes 20mg Take 1 capsule by mouth daily. [facility] FLUoxetine (PROZAC) 20 mg capsule 11-20 00:00: 00 Yes 20mg Take 1 capsule by mouth daily. [facility] FLUoxetine (PROZAC) 20 mg capsule 11-20 00:00: 00 Yes 20mg Take 1 capsule by mouth daily. [facility] FLUoxetine (PROZAC) 20 mg capsule 11-20 00:00: 00 Yes 20mg Take 1 capsule by mouth daily. [facility] FLUoxetine (PROZAC) 20 mg capsule [id number] 11-20 00:00: 00 Yes 20mg Take 1 capsule by mouth daily. [facility] FLUoxetine (PROZAC) 20 mg capsule 11-20 00:00: 00 Yes 20mg Take 1 capsule by mouth daily. [facility] FLUoxetine (PROZAC) 20 mg capsule 0 3- 00:00: 00 Yes 20mg Take 1 capsule by mouth daily. [facility] FLUoxetine (PROZAC) 20 mg capsule 0 312 00:00: 00 Yes 20mg Take 1 capsule by mouth daily. [facility] FLUoxetine (PROZAC) 20 mg capsule 0 312 00:00: 00 Yes 20mg Take 1 capsule by mouth daily. [facility] FLUoxetine (PROZAC) 20 mg capsule 2017-0 3 00:00: 00 Yes 20mg Take 1 capsule by mouth daily. [facility] FLUoxetine (PROZAC) 20 mg capsule 0 3 00:00: 00 Yes 20mg Take 1 capsule by mouth daily. [facility] FLUoxetine (PROZAC) 20 mg capsule 0 11-20 00:00: 00 Yes 20mg Take 1 capsule by mouth daily. [facility] FLUoxetine (PROZAC) 20 mg capsule 0 11-20 00:00: 00 Yes 20mg Take 1 capsule by mouth daily. [facility] FLUoxetine (PROZAC) 20 mg capsule 0 11-20 00:00: 00 Yes 20mg Take 1 capsule by mouth daily. [facility] FLUoxetine (PROZAC) 20 mg capsule 0 11-20 00:00: 00 Yes 20mg Take 1 capsule by mouth daily. [facility] FLUoxetine (PROZAC) 20 mg capsule 0 11-20 00:00: 00 Yes 20mg Take 1 capsule by mouth daily. [facility] FLUoxetine (PROZAC) 20 mg capsule 0 11-20 00:00: 00 Yes 20mg Take 1 capsule by mouth daily. [facility] FLUoxetine (PROZAC) 20 mg capsule 2017-0 11-20 00:00: 00 Yes 20mg Take 1 capsule by mouth daily. [facility] FLUoxetine (PROZAC) 20 mg capsule 0 11-20 00:00: 00 Yes 20mg Take 1 capsule by mouth daily. [facility] FLUoxetine (PROZAC) 20 mg capsule 2017-0 11-20 00:00: 00 Yes 20mg Take 1 capsule by mouth daily. [facility] FLUoxetine (PROZAC) 20 mg capsule 2017-0 3 00:00: 00 Yes 20mg Take 1 capsule by mouth daily. [facility] FLUoxetine (PROZAC) 20 mg capsule 2017-0 3-12 00:00: 00 Yes 20mg Take 1 capsule by mouth daily. [facility] FLUoxetine (PROZAC) 20 mg capsule 2017-0 3-12 00:00: 00 Yes 20mg Take 1 capsule by mouth daily. [facility] FLUoxetine (PROZAC) 20 mg capsule 0 312 00:00: 00 Yes 20mg Take 1 capsule by mouth daily. [facility] FLUoxetine (PROZAC) 20 mg capsule 2017-0 3-12 00:00: 00 Yes 20mg Take 1 capsule by mouth daily. [facility] FLUoxetine (PROZAC) 20 mg capsule 0 3 00:00: 00 Yes 20mg Take 1 capsule by mouth daily. [facility] FLUoxetine (PROZAC) 20 mg capsule 2017-0 3 00:00: 00 Yes 20mg Take 1 capsule by mouth daily. [facility] FLUoxetine (PROZAC) 20 mg capsule 0 3 00:00: 00 Yes 20mg Take 1 capsule by mouth daily. [facility] FLUoxetine (PROZAC) 20 mg capsule 0 3 00:00: 00 Yes 20mg Take 1 capsule by mouth daily. [facility] FLUoxetine (PROZAC) 20 mg capsule 2017-0 11-20 00:00: 00 Yes 20mg Take 1 capsule by mouth daily. [facility] FLUoxetine (PROZAC) 20 mg capsule 2017-0 12 00:00: 00 12-13 00:00 :00 No 20mg Take 1 capsule by mouth daily. [facility] FLUoxetine (PROZAC) 20 mg capsule 0 3 00:00: 00 12-13 00:00 :00 No 20mg Take 1 capsule by mouth daily. [facility] FLUoxetine (PROZAC) 20 mg capsule 2017-0 312 00:00: 00 12-13 00:00 :00 No 20mg Take 1 capsule by mouth daily. [facility] Immunizations Ordered Immunization Name Filled Immunization Name Date Status Comments Source Influenza Virus Vaccine Quad IM, Preserv and ABX Free 6 MO-64 YRS 2022-07-05 00:00:00 Completed [facility] Influenza Virus Vaccine Quad IM, Preserv and ABX Free 6 MO-64 YRS 2022-07-05 00:00:00 Completed [facility] Influenza Virus Vaccine Quad IM, Preserv and ABX Free 6 MO-64 YRS 2022-07-05 00:00:00 Completed [facility] Influenza Virus Vaccine Quad IM, Preserv and ABX Free 6 MO-64 YRS 2022-07-05 00:00:00 Completed [facility] Influenza Virus Vaccine Quad IM, Preserv and ABX Free 6 MO-64 YRS 2022-07-05 00:00:00 Completed [facility] Influenza Virus Vaccine Quad IM, Preserv and ABX Free 6 MO-64 2022-07-05 00:00:00 Completed [facility] Influenza Virus Vaccine Quad IM, Preserv and ABX Free 6 MO-64 2022-07-05 00:00:00 Completed [facility] Influenza Virus Vaccine Quad IM, Preserv and ABX Free 6 MO-64 2022-07-05 00:00:00 Completed [facility] Influenza Virus Vaccine Quad IM, Preserv and ABX Free 6 MO-64 2022-07-05 00:00:00 Completed [facility] Influenza Virus Vaccine Quad IM, Preserv and ABX Free 6 MO-64 2022-07-05 00:00:00 Completed [facility] Influenza Virus Vaccine Quad IM, Preserv and ABX Free 6 MO-64 2022-07-05 00:00:00 Completed [facility] Influenza Virus Vaccine Quad IM, Preserv and ABX Free 6 MO-64 2022-07-05 00:00:00 Completed [facility] Influenza Virus Vaccine Quad IM, Preserv and ABX Free 6 MO-64 2022-07-05 00:00:00 Completed [facility] Influenza Virus Vaccine Quad IM, Preserv and ABX Free 6 MO-64 YRS 2022-07-05 00:00:00 Completed [facility] Influenza Virus Vaccine Quad IM, Preserv and ABX Free 6 MO-64 2022-07-05 00:00:00 Completed [facility] Influenza Virus Vaccine Quad IM, Preserv and ABX Free 6 MO-64 YRS 2022-07-05 00:00:00 Completed [facility] Influenza Virus Vaccine Quad IM, Preserv and ABX Free 6 MO-64 YRS 2022-07-05 00:00:00 Completed [facility] Influenza Virus Vaccine Quad IM, Preserv and ABX Free 6 MO-64 YRS 2022-07-05 00:00:00 Completed [facility] Influenza Virus Vaccine Quad IM, Preserv and ABX Free 6 MO-64 YRS 2022-07-05 00:00:00 Completed [facility] Influenza Virus Vaccine Quad IM, Preserv and ABX Free 6 MO-64 YRS 2022-07-05 00:00:00 Completed [facility] Influenza Virus Vaccine Quad IM, Preserv and ABX Free 6 MO-64 2022-07-05 00:00:00 Completed [facility] Influenza Virus Vaccine Quad IM, Preserv and ABX Free 6 MO-64 2022-07-05 00:00:00 Completed [facility] Influenza Virus Vaccine Quad IM, Preserv and ABX Free 6 MO-64 2022-07-05 00:00:00 Completed [facility] Influenza Virus Vaccine Quad IM, Preserv and ABX Free 6 MO-64 2022-07-05 00:00:00 Completed [facility] Influenza Virus Vaccine Quad IM, Preserv and ABX Free 6 MO-64 2022-07-05 00:00:00 Completed [facility] Influenza Virus Vaccine Quad IM, Preserv and ABX Free 6 MO-64 2022-07-05 00:00:00 Completed [facility] Influenza Virus Vaccine Quad IM, Preserv and ABX Free 6 MO-64 YRS 2022-07-05 00:00:00 Completed [facility] Influenza Virus Vaccine Quad IM, Preserv and ABX Free 6 MO-64 2022-07-05 00:00:00 Completed [facility] Influenza Virus Vaccine Quad .5 mL IM 6+ MO 2020-08-17 00:00:00 Completed [facility] Influenza Virus Vaccine Quad .5 mL IM 6+ MO 2020-08-17 00:00:00 Completed [facility] Influenza Virus Vaccine Quad .5 mL IM 6+ MO 2020-08-17 00:00:00 Completed [facility] Influenza Virus Vaccine Quad .5 mL IM 6+ MO 2020-08-17 00:00:00 Completed [facility] Influenza Virus Vaccine Quad .5 mL IM 6+ MO 2020-08-17 00:00:00 Completed [facility] Influenza Virus Vaccine Quad .5 mL IM 6+ MO 2020-08-17 00:00:00 Completed [facility] Influenza Virus Vaccine Quad .5 mL IM 6+ MO 2020-08-17 00:00:00 Completed [facility] Influenza Virus Vaccine Quad .5 mL IM 6+ MO 2020-08-17 00:00:00 Completed [facility] Influenza Virus Vaccine Quad .5 mL IM 6+ MO 2020-08-17 00:00:00 Completed [facility] Influenza Virus Vaccine Quad .5 mL IM + MO 2020-08-17 00:00:00 Completed [facility] Influenza Virus Vaccine Quad .5 mL IM + MO 2020-08-17 00:00:00 Completed [facility] Influenza Virus Vaccine Quad .5 mL IM 6+ MO 2020-08-17 00:00:00 Completed [facility] Influenza Virus Vaccine Quad .5 mL IM 2020-08-17 00:00:00 Completed [facility] Influenza Virus Vaccine Quad .5 mL IM 6+ MO 2020-08-17 00:00:00 Completed [facility] Influenza Virus Vaccine Quad .5 mL IM + MO 2020-08-17 00:00:00 Completed [facility] Influenza Virus Vaccine Quad .5 mL IM + MO 2020-08-17 00:00:00 Completed [facility] Influenza Virus Vaccine Quad .5 mL IM 6+ MO 2020-08-17 00:00:00 Completed [facility] Influenza Virus Vaccine Quad .5 mL IM + 2020-08-17 00:00:00 Completed [facility] Influenza Virus Vaccine Quad .5 mL IM 6+ MO 2020-08-17 00:00:00 Completed [facility] Influenza Virus Vaccine Quad .5 mL IM 6+ MO 2020-08-17 00:00:00 Completed [facility] Influenza Virus Vaccine Quad .5 mL IM 6+ MO 2020-08-17 00:00:00 Completed [facility] Influenza Virus Vaccine Quad .5 mL IM 6+ MO 2020-08-17 00:00:00 Completed [facility] Influenza Virus Vaccine Quad .5 mL IM 6+ MO 2020-08-17 00:00:00 Completed [facility] Influenza Virus Vaccine Quad .5 mL IM 6+ MO 2020-08-17 00:00:00 Completed [facility] Influenza Virus Vaccine Quad .5 mL IM + MO 2020-08-17 00:00:00 Completed [facility] Influenza Virus Vaccine Quad .5 mL IM 6+ MO 2020-08-17 00:00:00 Completed [facility] Influenza Virus Vaccine Quad .5 mL IM + MO 2020-08-17 00:00:00 Completed [facility] Influenza Virus Vaccine Quad .5 mL IM + MO 2020-08-17 00:00:00 [facility] [facility] Influenza Virus Vaccine Quad .5 mL IM MO 2020-08-17 00:00:00 Completed [facility] Influenza Virus Vaccine Quad .5 mL IM 2020-08-17 00:00:00 Completed [facility] Influenza Virus Vaccine Quad .5 mL IM MO 2020-08-17 00:00:00 Completed [facility] Influenza Virus Vaccine Quad .5 mL IM 2020-08-17 00:00:00 Completed [facility] Influenza Virus Vaccine Quad .5 mL IM 2020-08-17 00:00:00 Completed [facility] Influenza Virus Vaccine Quad .5 mL IM 2020-08-17 00:00:00 Completed [facility] Influenza Virus Vaccine Quad .5 mL IM 6+ MO 2020-08-17 00:00:00 Completed [facility] Influenza Virus Vaccine Quad .5 mL IM + MO 2020-08-17 00:00:00 Completed [facility] Influenza Virus Vaccine Quad .5 mL IM 2020-08-17 00:00:00 Completed [facility] Influenza Virus Vaccine Quad .5 mL IM + MO 2020-08-17 00:00:00 Completed [facility] Influenza Virus Vaccine Quad .5 mL IM + MO 2020-08-17 00:00:00 Completed [facility] Influenza Virus Vaccine Quad .5 mL IM 6+ MO 2020-08-17 00:00:00 Completed [facility] Influenza Virus Vaccine Quad .5 mL IM 6+ MO 2020-08-17 00:00:00 Completed [facility] Influenza Virus Vaccine Quad .5 mL IM 6+ MO 2020-08-17 00:00:00 Completed [facility] HEP B, Adult Dosage 2018-03-29 00:00:00 Completed [facility] HEP B, Adult Dosage 2018-03-29 00:00:00 Completed [facility] HEP B, Adult Dosage 2018-03-29 00:00:00 Completed [facility] HEP B, Adult Dosage 2018-03-29 00:00:00 Completed [facility] HEP B, Adult Dosage 2018-03-29 00:00:00 Completed [facility] HEP B, Adult Dosage 2018-03-29 00:00:00 Completed [facility] HEP B, Adult Dosage 2018-03-29 00:00:00 Completed [facility] HEP B, Adult Dosage 2018-03-29 00:00:00 Completed [facility] HEP B, Adult Dosage 2018-03-29 00:00:00 Completed [facility] HEP B, Adult Dosage 2018-03-29 00:00:00 Completed [facility] HEP B, Adult Dosage 2018-03-29 00:00:00 Completed [facility] HEP B, Adult Dosage 2018-03-29 00:00:00 Completed [facility] HEP B, Adult Dosage 2018-03-29 00:00:00 Completed [facility] HEP B, Adult Dosage 2018-03-29 00:00:00 Completed [facility] HEP B, Adult Dosage 2018-03-29 00:00:00 Completed [facility] HEP B, Adult Dosage 2018-03-29 00:00:00 Completed [facility] HEP B, Adult Dosage 2018-03-29 00:00:00 Completed [facility] HEP B, Adult Dosage 2018-03-29 00:00:00 Completed [facility] HEP B, Adult Dosage 2018-03-29 00:00:00 Completed [facility] HEP B, Adult Dosage 2018-03-29 00:00:00 Completed [facility] HEP B, Adult Dosage 2018-03-29 00:00:00 Completed [facility] HEP B, Adult Dosage 2018-03-29 00:00:00 Completed [facility] HEP B, Adult Dosage 2018-03-29 00:00:00 Completed [facility] HEP B, Adult Dosage 2018-03-29 00:00:00 Completed [facility] HEP B, Adult Dosage 2018-03-29 00:00:00 Completed [facility] HEP B, Adult Dosage 2018-03-29 00:00:00 Completed [facility] HEP B, Adult Dosage 2018-03-29 00:00:00 Completed [facility] HEP B, Adult Dosage 2018-03-29 00:00:00 Completed [facility] HEP B, Adult Dosage 2018-03-29 00:00:00 Completed [facility] HEP B, Adult Dosage 2018-03-29 00:00:00 Completed [facility] HEP B, Adult Dosage 2018-03-29 00:00:00 Completed [facility] HEP B, Adult Dosage 2018-03-29 00:00:00 Completed [facility] HEP B, Adult Dosage 2018-03-29 00:00:00 Completed [facility] HEP B, Adult Dosage 2018-03-29 00:00:00 Completed [facility] HEP B, Adult Dosage 2018-03-29 00:00:00 Completed [facility] HEP B, Adult Dosage 2018-03-29 00:00:00 Completed [facility] HEP B, Adult Dosage 2018-03-29 00:00:00 Completed [facility] HEP B, Adult Dosage 2018-03-29 00:00:00 Completed [facility] HEP B, Adult Dosage 2018-03-29 00:00:00 Completed [facility] HEP B, Adult Dosage 2018-03-29 00:00:00 Completed [facility] HEP B, Adult Dosage 2018-03-29 00:00:00 Completed [facility] HEP B, Adult Dosage 2018-03-29 00:00:00 Completed [facility] TDAP 2018-02-19 00:00:00 Completed [facility] MMR Booster 2018-02-19 00:00:00 Completed [facility] HEP B, Adult Dosage 2018-02-19 00:00:00 Completed [facility] Meningococcal Polysaccharide (groups A, C, Y and W-135) conjugate vaccine (MCV4P) 2018-02-19 00:00:00 Completed [facility] PPD (TB) 2018-02-19 00:00:00 Completed [facility] TDAP 2018-02-19 00:00:00 Completed [facility] MMR Booster 2018-02-19 00:00:00 Completed [facility] HEP B, Adult Dosage 2018-02-19 00:00:00 Completed [facility] Meningococcal Polysaccharide (groups A, C, Y and W-135) conjugate vaccine (MCV4P) 2018-02-19 00:00:00 Completed [facility] PPD (TB) 2018-02-19 00:00:00 Completed [facility] TDAP 2018-02-19 00:00:00 Completed [facility] MMR Booster 2018-02-19 00:00:00 Completed [facility] HEP B, Adult Dosage 2018-02-19 00:00:00 Completed [facility] Meningococcal Polysaccharide (groups A, C, Y and W-135) conjugate vaccine (MCV4P) 2018-02-19 00:00:00 Completed [facility] PPD (TB) 2018-02-19 00:00:00 Completed [facility] TDAP 2018-02-19 00:00:00 Completed [facility] MMR Booster 2018-02-19 00:00:00 Completed [facility] HEP B, Adult Dosage 2018-02-19 00:00:00 Completed [facility] Meningococcal Polysaccharide (groups A, C, Y and W-135) conjugate vaccine (MCV4P) 2018-02-19 00:00:00 Completed [facility] PPD (TB) 2018-02-19 00:00:00 Completed [facility] TDAP 2018-02-19 00:00:00 Completed [facility] MMR Booster 2018-02-19 00:00:00 Completed [facility] HEP B, Adult Dosage 2018-02-19 00:00:00 Completed [facility] Meningococcal Polysaccharide (groups A, C, Y and W-135) conjugate vaccine (MCV4P) 2018-02-19 00:00:00 Completed [facility] PPD (TB) 2018-02-19 00:00:00 Completed [facility] TDAP 2018-02-19 00:00:00 Completed [facility] MMR Booster 2018-02-19 00:00:00 Completed [facility] HEP B, Adult Dosage 2018-02-19 00:00:00 Completed [facility] Meningococcal Polysaccharide (groups A, C, Y and W-135) conjugate vaccine (MCV4P) 2018-02-19 00:00:00 Completed [facility] PPD (TB) 2018-02-19 00:00:00 Completed [facility] TDAP 2018-02-19 00:00:00 Completed [facility] MMR Booster 2018-02-19 00:00:00 Completed [facility] HEP B, Adult Dosage 2018-02-19 00:00:00 Completed [facility] Meningococcal Polysaccharide (groups A, C, Y and W-135) conjugate vaccine (MCV4P) 2018-02-19 00:00:00 Completed [facility] PPD (TB) 2018-02-19 00:00:00 Completed [facility] TDAP 2018-02-19 00:00:00 Completed [facility] MMR Booster 2018-02-19 00:00:00 Completed [facility] HEP B, Adult Dosage 2018-02-19 00:00:00 Completed [facility] Meningococcal Polysaccharide (groups A, C, Y and W-135) conjugate vaccine (MCV4P) 2018-02-19 00:00:00 Completed [facility] PPD (TB) 2018-02-19 00:00:00 Completed [facility] TDAP 2018-02-19 00:00:00 Completed [facility] MMR Booster 2018-02-19 00:00:00 Completed [facility] HEP B, Adult Dosage 2018-02-19 00:00:00 Completed [facility] Meningococcal Polysaccharide (groups A, C, Y and W-135) conjugate vaccine (MCV4P) 2018-02-19 00:00:00 Completed [facility] PPD (TB) 2018-02-19 00:00:00 Completed [facility] TDAP 2018-02-19 00:00:00 Completed [facility] MMR Booster 2018-02-19 00:00:00 Completed [facility] HEP B, Adult Dosage 2018-02-19 00:00:00 Completed [facility] Meningococcal Polysaccharide (groups A, C, Y and W-135) conjugate vaccine (MCV4P) 2018-02-19 00:00:00 Completed [facility] PPD (TB) 2018-02-19 00:00:00 Completed [facility] TDAP 2018-02-19 00:00:00 Completed [facility] MMR Booster 2018-02-19 00:00:00 Completed [facility] HEP B, Adult Dosage 2018-02-19 00:00:00 Completed [facility] Meningococcal Polysaccharide (groups A, C, Y and W-135) conjugate vaccine (MCV4P) 2018-02-19 00:00:00 Completed [facility] PPD (TB) 2018-02-19 00:00:00 Completed [facility] TDAP 2018-02-19 00:00:00 Completed [facility] MMR Booster 2018-02-19 00:00:00 Completed [facility] HEP B, Adult Dosage 2018-02-19 00:00:00 Completed [facility] Meningococcal Polysaccharide (groups A, C, Y and W-135) conjugate vaccine (MCV4P) 2018-02-19 00:00:00 Completed [facility] PPD (TB) 2018-02-19 00:00:00 Completed [facility] TDAP 2018-02-19 00:00:00 Completed [facility] MMR Booster 2018-02-19 00:00:00 Completed [facility] HEP B, Adult Dosage 2018-02-19 00:00:00 Completed [facility] Meningococcal Polysaccharide (groups A, C, Y and W-135) conjugate vaccine (MCV4P) 2018-02-19 00:00:00 Completed [facility] PPD (TB) 2018-02-19 00:00:00 Completed [facility] TDAP 2018-02-19 00:00:00 Completed [facility] MMR Booster 2018-02-19 00:00:00 Completed [facility] HEP B, Adult Dosage 2018-02-19 00:00:00 Completed [facility] Meningococcal Polysaccharide (groups A, C, Y and W-135) conjugate vaccine (MCV4P) 2018-02-19 00:00:00 Completed [facility] PPD (TB) 2018-02-19 00:00:00 Completed [facility] TDAP 2018-02-19 00:00:00 Completed [facility] MMR Booster 2018-02-19 00:00:00 Completed [facility] HEP B, Adult Dosage 2018-02-19 00:00:00 Completed [facility] Meningococcal Polysaccharide (groups A, C, Y and W-135) conjugate vaccine (MCV4P) 2018-02-19 00:00:00 Completed [facility] PPD (TB) 2018-02-19 00:00:00 Completed [facility] TDAP 2018-02-19 00:00:00 Completed [facility] MMR Booster 2018-02-19 00:00:00 Completed [facility] HEP B, Adult Dosage 2018-02-19 00:00:00 Completed [facility] Meningococcal Polysaccharide (groups A, C, Y and W-135) conjugate vaccine (MCV4P) 2018-02-19 00:00:00 Completed [facility] PPD (TB) 2018-02-19 00:00:00 Completed [facility] TDAP 2018-02-19 00:00:00 Completed [facility] MMR Booster 2018-02-19 00:00:00 Completed [facility] HEP B, Adult Dosage 2018-02-19 00:00:00 Completed [facility] Meningococcal Polysaccharide (groups A, C, Y and W-135) conjugate vaccine (MCV4P) 2018-02-19 00:00:00 Completed [facility] PPD (TB) 2018-02-19 00:00:00 Completed [facility] TDAP 2018-02-19 00:00:00 Completed [facility] MMR Booster 2018-02-19 00:00:00 Completed [facility] HEP B, Adult Dosage 2018-02-19 00:00:00 Completed [facility] Meningococcal Polysaccharide (groups A, C, Y and W-135) conjugate vaccine (MCV4P) 2018-02-19 00:00:00 Completed [facility] PPD (TB) 2018-02-19 00:00:00 Completed [facility] TDAP 2018-02-19 00:00:00 Completed [facility] MMR Booster 2018-02-19 00:00:00 Completed [facility] HEP B, Adult Dosage 2018-02-19 00:00:00 Completed [facility] Meningococcal Polysaccharide (groups A, C, Y and W-135) conjugate vaccine (MCV4P) 2018-02-19 00:00:00 Completed [facility] PPD (TB) 2018-02-19 00:00:00 Completed [facility] TDAP 2018-02-19 00:00:00 Completed [facility] MMR Booster 2018-02-19 00:00:00 Completed [facility] HEP B, Adult Dosage 2018-02-19 00:00:00 Completed [facility] Meningococcal Polysaccharide (groups A, C, Y and W-135) conjugate vaccine (MCV4P) 2018-02-19 00:00:00 Completed [facility] PPD (TB) 2018-02-19 00:00:00 Completed [facility] TDAP 2018-02-19 00:00:00 Completed [facility] MMR Booster 2018-02-19 00:00:00 Completed [facility] HEP B, Adult Dosage 2018-02-19 00:00:00 Completed [facility] Meningococcal Polysaccharide (groups A, C, Y and W-135) conjugate vaccine (MCV4P) 2018-02-19 00:00:00 Completed [facility] PPD (TB) 2018-02-19 00:00:00 Completed [facility] TDAP 2018-02-19 00:00:00 Completed [facility] MMR Booster 2018-02-19 00:00:00 Completed [facility] HEP B, Adult Dosage 2018-02-19 00:00:00 Completed [facility] Meningococcal Polysaccharide (groups A, C, Y and W-135) conjugate vaccine (MCV4P) 2018-02-19 00:00:00 Completed [facility] PPD (TB) 2018-02-19 00:00:00 Completed [facility] TDAP 2018-02-19 00:00:00 Completed [facility] MMR Booster 2018-02-19 00:00:00 Completed [facility] HEP B, Adult Dosage 2018-02-19 00:00:00 Completed [facility] Meningococcal Polysaccharide (groups A, C, Y and W-135) conjugate vaccine (MCV4P) 2018-02-19 00:00:00 Completed [facility] PPD (TB) 2018-02-19 00:00:00 Completed [facility] TDAP 2018-02-19 00:00:00 Completed [facility] MMR Booster 2018-02-19 00:00:00 Completed [facility] HEP B, Adult Dosage 2018-02-19 00:00:00 Completed [facility] Meningococcal Polysaccharide (groups A, C, Y and W-135) conjugate vaccine (MCV4P) 2018-02-19 00:00:00 Completed [facility] PPD (TB) 2018-02-19 00:00:00 Completed [facility] TDAP 2018-02-19 00:00:00 Completed [facility] MMR Booster 2018-02-19 00:00:00 Completed [facility] HEP B, Adult Dosage 2018-02-19 00:00:00 Completed [facility] Meningococcal Polysaccharide (groups A, C, Y and W-135) conjugate vaccine (MCV4P) 2018-02-19 00:00:00 Completed [facility] PPD (TB) 2018-02-19 00:00:00 Completed [facility] TDAP 2018-02-19 00:00:00 Completed [facility] MMR Booster 2018-02-19 00:00:00 Completed [facility] HEP B, Adult Dosage 2018-02-19 00:00:00 Completed [facility] Meningococcal Polysaccharide (groups A, C, Y and W-135) conjugate vaccine (MCV4P) 2018-02-19 00:00:00 Completed [facility] PPD (TB) 2018-02-19 00:00:00 Completed [facility] TDAP 2018-02-19 00:00:00 Completed [facility] MMR Booster 2018-02-19 00:00:00 Completed [facility] HEP B, Adult Dosage 2018-02-19 00:00:00 Completed [facility] Meningococcal Polysaccharide (groups A, C, Y and W-135) conjugate vaccine (MCV4P) 2018-02-19 00:00:00 Completed [facility] PPD (TB) 2018-02-19 00:00:00 Completed [facility] TDAP 2018-02-19 00:00:00 Completed [facility] MMR Booster 2018-02-19 00:00:00 Completed [facility] HEP B, Adult Dosage 2018-02-19 00:00:00 Completed [facility] Meningococcal Polysaccharide (groups A, C, Y and W-135) conjugate vaccine (MCV4P) 2018-02-19 00:00:00 Completed [facility] PPD (TB) 2018-02-19 00:00:00 Completed [facility] TDAP 2018-02-19 00:00:00 Completed [facility] MMR Booster 2018-02-19 00:00:00 Completed [facility] HEP B, Adult Dosage 2018-02-19 00:00:00 Completed [facility] Meningococcal Polysaccharide (groups A, C, Y and W-135) conjugate vaccine (MCV4P) 2018-02-19 00:00:00 Completed [facility] PPD (TB) 2018-02-19 00:00:00 Completed [facility] TDAP 2018-02-19 00:00:00 Completed [facility] MMR Booster 2018-02-19 00:00:00 Completed [facility] HEP B, Adult Dosage 2018-02-19 00:00:00 Completed [facility] Meningococcal Polysaccharide (groups A, C, Y and W-135) conjugate vaccine (MCV4P) 2018-02-19 00:00:00 Completed [facility] PPD (TB) 2018-02-19 00:00:00 Completed [facility] TDAP 2018-02-19 00:00:00 Completed [facility] MMR Booster 2018-02-19 00:00:00 Completed [facility] HEP B, Adult Dosage 2018-02-19 00:00:00 Completed [facility] Meningococcal Polysaccharide (groups A, C, Y and W-135) conjugate vaccine (MCV4P) 2018-02-19 00:00:00 Completed [facility] PPD (TB) 2018-02-19 00:00:00 Completed [facility] TDAP 2018-02-19 00:00:00 Completed [facility] MMR Booster 2018-02-19 00:00:00 Completed [facility] HEP B, Adult Dosage 2018-02-19 00:00:00 Completed [facility] Meningococcal Polysaccharide (groups A, C, Y and W-135) conjugate vaccine (MCV4P) 2018-02-19 00:00:00 Completed [facility] PPD (TB) 2018-02-19 00:00:00 Completed [facility] TDAP 2018-02-19 00:00:00 Completed [facility] MMR Booster 2018-02-19 00:00:00 Completed [facility] HEP B, Adult Dosage 2018-02-19 00:00:00 Completed [facility] Meningococcal Polysaccharide (groups A, C, Y and W-135) conjugate vaccine (MCV4P) 2018-02-19 00:00:00 Completed [facility] PPD (TB) 2018-02-19 00:00:00 Completed [facility] TDAP 2018-02-19 00:00:00 Completed [facility] MMR Booster 2018-02-19 00:00:00 Completed [facility] HEP B, Adult Dosage 2018-02-19 00:00:00 Completed [facility] Meningococcal Polysaccharide (groups A, C, Y and W-135) conjugate vaccine (MCV4P) 2018-02-19 00:00:00 Completed [facility] PPD (TB) 2018-02-19 00:00:00 Completed [facility] TDAP 2018-02-19 00:00:00 Completed [facility] MMR Booster 2018-02-19 00:00:00 Completed [facility] HEP B, Adult Dosage 2018-02-19 00:00:00 Completed [facility] Meningococcal Polysaccharide (groups A, C, Y and W-135) conjugate vaccine (MCV4P) 2018-02-19 00:00:00 Completed [facility] PPD (TB) 2018-02-19 00:00:00 Completed [facility] TDAP 2018-02-19 00:00:00 Completed [facility] MMR Booster 2018-02-19 00:00:00 Completed [facility] HEP B, Adult Dosage 2018-02-19 00:00:00 Completed [facility] Meningococcal Polysaccharide (groups A, C, Y and W-135) conjugate vaccine (MCV4P) 2018-02-19 00:00:00 Completed [facility] PPD (TB) 2018-02-19 00:00:00 Completed [facility] TDAP 2018-02-19 00:00:00 Completed [facility] MMR Booster 2018-02-19 00:00:00 Completed [facility] HEP B, Adult Dosage 2018-02-19 00:00:00 Completed [facility] Meningococcal Polysaccharide (groups A, C, Y and W-135) conjugate vaccine (MCV4P) 2018-02-19 00:00:00 Completed [facility] PPD (TB) 2018-02-19 00:00:00 Completed [facility] TDAP 2018-02-19 00:00:00 Completed [facility] MMR Booster 2018-02-19 00:00:00 Completed [facility] HEP B, Adult Dosage 2018-02-19 00:00:00 Completed [facility] Meningococcal Polysaccharide (groups A, C, Y and W-135) conjugate vaccine (MCV4P) 2018-02-19 00:00:00 Completed [facility] PPD (TB) 2018-02-19 00:00:00 Completed [facility] TDAP 2018-02-19 00:00:00 Completed [facility] MMR Booster 2018-02-19 00:00:00 Completed [facility] HEP B, Adult Dosage 2018-02-19 00:00:00 Completed [facility] Meningococcal Polysaccharide (groups A, C, Y and W-135) conjugate vaccine (MCV4P) 2018-02-19 00:00:00 Completed [facility] PPD (TB) 2018-02-19 00:00:00 Completed [facility] TDAP 2018-02-19 00:00:00 Completed [facility] MMR Booster 2018-02-19 00:00:00 Completed [facility] HEP B, Adult Dosage 2018-02-19 00:00:00 Completed [facility] Meningococcal Polysaccharide (groups A, C, Y and W-135) conjugate vaccine (MCV4P) 2018-02-19 00:00:00 Completed [facility] PPD (TB) 2018-02-19 00:00:00 Completed [facility] TDAP 2018-02-19 00:00:00 Completed [facility] MMR Booster 2018-02-19 00:00:00 Completed [facility] HEP B, Adult Dosage 2018-02-19 00:00:00 Completed [facility] Meningococcal Polysaccharide (groups A, C, Y and W-135) conjugate vaccine (MCV4P) 2018-02-19 00:00:00 Completed [facility] PPD (TB) 2018-02-19 00:00:00 Completed [facility] TDAP 2018-02-19 00:00:00 Completed [facility] MMR Booster 2018-02-19 00:00:00 Completed [facility] HEP B, Adult Dosage 2018-02-19 00:00:00 Completed [facility] Meningococcal Polysaccharide (groups A, C, Y and W-135) conjugate vaccine (MCV4P) 2018-02-19 00:00:00 Completed [facility] PPD (TB) 2018-02-19 00:00:00 Completed [facility] TDAP Unknown Completed [facility] MMR Booster Unknown Completed [facility] HEP B, Adult Dosage Unknown Completed [facility] Meningococcal Polysaccharide (groups A, C, Y and W-135) conjugate vaccine (MCV4P) Unknown Completed [facility] PPD (TB) Unknown Completed [facility] HEP B, Adult Dosage Unknown Completed [facility] Influenza Virus Vaccine Quad .5 mL IM 6+ MO (FLUZONE/FLULAVAL/FL UARIX) Unknown Completed [facility] Influenza Virus Vaccine Quad IM, Preserv and ABX Free 6 MO-64 YRS (FLUCELVAX) Unknown Completed [facility] TDAP Unknown Completed [facility] MMR Booster Unknown Completed [facility] HEP B, Adult Dosage Unknown Completed [facility] Meningococcal Polysaccharide (groups A, C, Y and W-135) conjugate vaccine (MCV4P) Unknown Completed [facility] PPD (TB) Unknown Completed [facility] HEP B, Adult Dosage Unknown Completed [facility] Influenza Virus Vaccine Quad .5 mL IM 6+ MO (FLUZONE/FLULAVAL/FL UARIX) Unknown Completed [facility] Influenza Virus Vaccine Quad IM, Preserv and ABX Free 6 MO-64 YRS (FLUCELVAX) Unknown Completed [facility] TDAP Unknown Completed [facility] MMR Booster Unknown Completed [facility] HEP B, Adult Dosage Unknown [facility] [facility] Meningococcal Polysaccharide (groups A, C, Y and W-135) conjugate vaccine (MCV4P) Unknown Completed [facility] PPD (TB) Unknown Completed [facility] HEP B, Adult Dosage Unknown Completed [facility] Influenza Virus Vaccine Quad .5 mL IM 6+ MO (FLUZONE/FLULAVAL/FL UARIX) Unknown Completed [facility] Influenza Virus Vaccine Quad IM, Preserv and ABX Free 6 MO-64 YRS (FLUCELVAX) Unknown Completed [facility] TDAP Unknown Completed [facility] MMR Booster Unknown Completed [facility] HEP B, Adult Dosage Unknown Completed [facility] Meningococcal Polysaccharide (groups A, C, Y and W-135) conjugate vaccine (MCV4P) Unknown Completed [facility] PPD (TB) Unknown Completed [facility] HEP B, Adult Dosage Unknown Completed [facility] Influenza Virus Vaccine Quad .5 mL IM 6+ MO (FLUZONE/FLULAVAL/FL UARIX) Unknown Completed [facility] Influenza Virus Vaccine Quad IM, Preserv and ABX Free 6 MO-64 YRS (FLUCELVAX) Unknown Completed [facility] TDAP Unknown Completed [facility] MMR Booster Unknown Completed [facility] HEP B, Adult Dosage Unknown Completed [facility] Meningococcal Polysaccharide (groups A, C, Y and W-135) conjugate vaccine (MCV4P) Unknown Completed [facility] PPD (TB) Unknown Completed [facility] HEP B, Adult Dosage Unknown Completed [facility] Influenza Virus Vaccine Quad .5 mL IM 6+ MO (FLUZONE/FLULAVAL/FL UARIX) Unknown Completed [facility] Influenza Virus Vaccine Quad IM, Preserv and ABX Free 6 MO-64 YRS (FLUCELVAX) Unknown Completed [facility] TDAP Unknown Completed [facility] MMR Booster Unknown Completed [facility] HEP B, Adult Dosage Unknown Completed [facility] Meningococcal Polysaccharide (groups A, C, Y and W-135) conjugate vaccine (MCV4P) Unknown Completed [facility] PPD (TB) Unknown Completed [facility] HEP B, Adult Dosage Unknown Completed [facility] Influenza Virus Vaccine Quad .5 mL IM 6+ MO (FLUZONE/FLULAVAL/FL UARIX) Unknown Completed [facility] Influenza Virus Vaccine Quad IM, Preserv and ABX Free 6 MO-64 YRS (FLUCELVAX) Unknown Completed [facility] Vital Signs Vital Name Observation Time Observation Value Comments S ource Systolic blood pressure 2023-07-12 13:39:00 102 mm[Hg] [facility] Diastolic blood pressure 2023-07-12 13:39:00 66 mm[Hg] [facility] Heart rate 2023-07-12 13:39:00 77 /min [facility] Respiratory rate 2023-07-12 13:39:00 18 /min [facility] Body height 2023-07-12 13:39:00 172.7 cm [facility] Body weight 2023-07-12 13:39:00 68.266 kg [facility] BMI 2023-07-12 13:39:00 22.88 kg/m2 [facility] Oxygen saturation in Arterial blood by Pulse oximetry 2023-07-12 13:39:00 100 /min [facility] Systolic blood pressure 2022-12-22 12:06:00 121 mm[Hg] [facility] Diastolic blood pressure 2022-12-22 12:06:00 71 mm[Hg] [facility] Heart rate 2022-12-22 12:06:00 77 /min [facility] Body temperature 2022-12-22 12:06:00 36.5 [place] [facility] Body height 2022-12-22 12:06:00 172.7 cm [facility] Body weight 2022-12-22 12:06:00 68.584 kg [facility] BMI 2022-12-22 12:06:00 22.99 kg/m2 [facility] Oxygen saturation in Arterial blood by Pulse oximetry 2022-12-22 12:06:00 98 /min [facility] Systolic blood pressure 2022-12-13 12:40:00 116 mm[Hg] [facility] Diastolic blood pressure 2022-12-13 12:40:00 69 mm[Hg] [facility] Heart rate 2022-12-13 12:40:00 79 /min [facility] Body height 2022-12-13 12:40:00 172.7 cm [facility] Body weight 2022-12-13 12:40:00 68.992 kg [facility] BMI 2022-12-13 12:40:00 23.13 kg/m2 [facility] Oxygen saturation in Arterial blood by Pulse oximetry 2022-12-13 12:40:00 99 /min [facility] Systolic blood pressure 2022-12-08 14:12:00 133 mm[Hg] [facility] Diastolic blood pressure 2022-12-08 14:12:00 81 mm[Hg] [facility] Heart rate 2022-12-08 14:12:00 103 /min [facility] Body temperature 2022-12-08 14:12:00 36.11 [place] [facility] Respiratory rate 2022-12-08 14:12:00 18 /min [facility] Body height 2022-12-08 14:12:00 172.7 cm [facility] Body weight 2022-12-08 14:12:00 68.72 kg [facility] BMI 2022-12-08 14:12:00 23.04 kg/m2 [facility] Systolic blood pressure 2022-07-05 16:14:00 122 mm[Hg] [facility] Diastolic blood pressure 2022-07-05 16:14:00 75 mm[Hg] [facility] Heart rate 2022-07-05 16:14:00 82 /min [facility] Respiratory rate 2022-07-05 16:14:00 19 /min [facility] Body height 2022-07-05 16:14:00 172.7 cm [facility] Body weight 2022-07-05 16:14:00 69.854 kg [facility] BMI 2022-07-05 16:14:00 23.42 kg/m2 [facility] Oxygen saturation in Arterial blood by Pulse oximetry 2022-07-05 16:14:00 92 /min [facility] Systolic blood pressure 2022-06-09 13:03:00 116 mm[Hg] [facility] Diastolic blood pressure 2022-06-09 13:03:00 66 mm[Hg] [facility] Heart rate 2022-06-09 13:03:00 73 /min [facility] Body temperature 2022-06-09 13:03:00 36.83 [place] [facility] Body height 2022-06-09 13:03:00 172.7 cm [facility] Body weight 2022-06-09 13:03:00 70.353 kg [facility] BMI 2022-06-09 13:03:00 23.58 kg/m2 [facility] Oxygen saturation in Arterial blood by Pulse oximetry 2022-06-09 13:03:00 98 /min [facility] Systolic blood pressure 2022-03-17 12:40:00 112 mm[Hg] [facility] Diastolic blood pressure 2022-03-17 12:40:00 71 mm[Hg] [facility] Heart rate 2022-03-17 12:40:00 89 /min [facility] Body weight 2022-03-17 12:40:00 72.938 kg [facility] BMI 2022-03-17 12:40:00 24.45 kg/m2 [facility] Procedures Procedure Date / Time Performed Performing Clinician Source ASSIGNMENT OF BENEFITS 2023-07-12 13:27:14 Docto r Unassigned, [place] [facility] CREATINE KINASE 2022-12-08 15:02:00 Raúl Armando [facility] C-REACTIVE PROTEIN 2022-12-08 15:02[facility] 2022-12-08 15:02:00 Raúl Armando [facility] THYROID STIMULATING HORMONE 2022-12-08 15:02:00 Raúl Armando [facility] COMP. METABOLIC PANEL (77122) 2022-12-08 15:02:00 Raúl Armando [facility] CBC WITH DIFF 2022-12-08 15:02:00 Raúl Armando [facility] HEPATITIS B SURFACE ANTIBODY 2022-12-08 15:02[facility]TIGEN 2022-12-08 15:02:00 Raúl Armando [facility] HCV ANTIBODY 2022-12-08 15:02:00 Raúl Armando [facility] HBC ANTIBODY (IGM & IGG) 2022-12-08 15:02:00 Raúl Armando [facility] VITAMIN D, 25-OH 2022-12-08 15:02:00 Raúl Armando gee [facility] HIV 1/2 AG-AB WITH REFLEX 2022-12-08 15:02:00 Raúl Armando [facility] SYPHILIS IGG/IGM 2022-12-08 15:02:00 Raúl Armando [facility] PATIENT FINANCIAL POLICY 2022-12-08 13:55:40 Doctor Unassigned, [place] [facility] FLU VACC ([id number]), 6 MO-64 YRS, .5ML, IM, QUAD (FLUCELVAX) 2022-07-05 16:18:25 Nato Duran [facility] US HEAD NECK 2022-06-27 21:28:11 Blossom Christine [facility] ASSIGNMENT OF BENEFITS 2022-06-27 20:52:28 Docto r Unassigned, [place] [facility] CT THORAX WO CONTRAST 2022-06-14 13:45:53 Prem Christine [facility] POCT TEST 2022-06-09 00:00:00 Blossom Christine [facility] Encounters Start Date/Time End Date/Time Encounter Type Admission Type Attending Clinicians Care Facility Care Department Encounter ID Source 2023-08-30 00:00:00 2023-08-30 00:00:00 [facility] 1.2.840.114 350.1.13.10 4.2.7.2.686 [id number] [facility] 2023-07-12 08:30:00 2023-07-12 08:45:00 Office Visit E[facility]ín [facility] 1..840.114 350.1.13.10 4.2.7.2.686 [id number] [facility] 2023-07-12 08:30:00 2023-07-12 08:30:00 Outpatient Velasquez HUSAIN [facility] [id number] [facility] 2023-07-12 00:00:00 2023-07-12 00:00:00 Orders Only Doctor Unassigned, [place] [facility] 1..840.114 350.1.13.10 4.2.7.2.686 [id number] [facility] 2023-07-10 00:00:00 2023-07-10 00:00:00 Telephone Efraín [facility] 1..840.114 350.1.13.10 4.2.7.2.686 [id number] [facility] 2023-05-11 09:20:00 2023-05-11 09:20:00 Outpatient RAÚL GILBERT [facility] [id number] [facility] 2023-04-10 00:00:00 2023-04-10 00:00:[address] [facility] 1.2840.114 350.1.13.10 4.2.7.2.686 [id number] [facility] 2023-03-02 00:00:00 2023-03-02 00:00:[facility] 1.2840.114 350.1.13.10 4.2.7.2.686 [id number] [facility] 2023-02-09 00:00:00 2023-02-09 00:00:00 [facility] 1.2840.114 350.1.13.10 4.2.7.2.686 [id number] [facility] 2023-01-23 00:00:00 2023-01-23 00:00:00 [facility] 1.2840.114 350.1.13.10 4.2.7.2.686 [id number] [facility] 2023-01-13 00:00:00 2023-01-13 00:00:00 Telephone Raúl Armando [facility] 1.2840.114 350.1.13.10 4.2.7.2.686 [id number] [facility] 2023-01-10 00:00:00 2023-01-10 00:00:00 Outpatient R RAÚL ARMANDO [facility] [id number] [facility] 2023-01-09 00:00:00 2023-01-09 00:00:00 Telephone Noah Ray [facility] 1.2840.114 350.1.13.10 4.2.7.2.686 [id number] [facility] 2023-01-09 00:00:00 2023-01-09 00:00:00 Patient Secure Msg Doctor Unassigned, [place] [facility] 1..114 350.1.13.10 4.2.7.2.686 [id number] [facility] 2022-12-22 07:00:00 2022-12-22 07:30:00 Office Visit Blossom Christine [facility] [place] 1.114 350.1.13.10 4.2.7.2.686 [id number] [facility] 2022-12-22 07:00:00 2022-12-22 07:00:00 Outpatient R BLOSSOM CHRISTINE [facility] [id number] [facility] 2022-12-22 00:00:00 2022-12-22 00:00:00 Letter (Out) Blossom Christine [facility] 1.114 350.1.13.10 4.2.7.2.686 [id number] [facility] 2022-12-13 07:45:00 2022-12-13 08:00:00 Office Visit Marce Husain [facility] 1.114 350.1.13.10 4.2.7.2.686 [id number] [facility] 2022-12-13 07:45:00 2022-12-13 07:45:00 Outpatient R MARCE HUSAIN [facility] [id number] [facility] 2022-12-08 10:15:00 2022-12-08 10:30:00 Thoracic Surgeon Visit Pcp-Raúl Navarro [facility] 1..114 350.1.13.10 4.2.7.2.686 [id number] [facility] 2022-12-08 09:20:00 2022-12-08 09:50:18 Outpatient R RAÚL ARMANDO [facility] [id number] [facility] 2022-12-08 09:20:00 2022-12-08 09:50:18 Office Visit Raúl Armando [facility] 1.840.114 350.1.13.10 4.2.7.2.686 [id number] [facility] 2022-12-08 00:00:00 2022-12-08 00:00:00 Refill Efraín [facility] 1.840.114 350.1.13.10 4.2.7.2.686 [id number] [facility] 2022-12-08 00:00:00 2022-12-08 00:00:00 Orders Only Doctor Unassigned, [place] [facility] 1.840.114 350.1.13.10 4.2.7.2.686 [id number] [facility] 2022 00:00:00 2022 00:00:00 [facility] 1.84114 350.1.13.10 4.2.7.2.686 [id number] [facility] 2022-11-29 00:00:00 2022-11-29 00:00:00 [facility] 1.2840.114 350.1.13.10 4.2.7.2.686 [id number] [facility] 2022-09-01 00:00:00 2022-09-01 00:00:00 Refill Efraín [facility] [place] 1.2840.114 350.1.13.10 4.2.7.2.686 [id number] [facility] 2022-08-23 10:30:00 2022-08-23 10:30:00 [facility] R [facility] [id number] [facility] 2022-08-02 09:30:00 2022-08-02 09:30:00 Outpatient R NATO [facility] [id number] [facility] 2022-07-29 00:00:00 2022-07-29 00:00:00 Refill Efraín Marce [facility] 1.2840.114 350.1.13.10 4.2.7.2.686 [id number] [facility] 2022-07-14 00:00:00 2022-07-14 00:00:00 Refill Efraín Marce [facility] 1.2840.114 350.1.13.10 4.2.7.2.686 [id number] [facility] 2022-07-12 00:00:00 2022-07-12 00:00:00 Refill Blossom Christine [facility] 1.2840.114 350.1.13.10 4.2.7.2.686 [id number] [facility] 2022-07-05 12:15:00 2022-07-05 12:30:00 Thoracic Surgeon Visit Pob, Adc Lab Main Nato Duran [facility] BU[facility] 1.2840.114 350.1.13.10 4.2.7.2.686 [id number] [facility] 2022-07-05 11:00:00 2022-07-05 11:46:44 Outpatient R NATO DURAN SHIWAN [facility] [id number] [facility] 2022-07-05 11:00:00 2022-07-05 11:46:44 Office Visit Nato Duran [facility] 1..840.114 350.1.13.10 4.2.7.2.686 [id number] [facility] 2022-06-27 15:52:36 2022-06-27 23:59:00 Outpatient R BLOSSOM CHRISTINE [facility] [id number] [facility] 2022-06-27 15:45:00 2022-06-27 23:59:00 Hospital Encounter Blossom Christine [facility] 1..840.114 350.1.13.10 4.2.7.2.686 [id number] [facility] 2022-06-27 00:00:00 2022-06-27 00:00:00 Orders Only Doctor Unassigned, [place] [facility] 1.2.840.114 350.1.13.10 4.2.7.2.686 [id number] [facility] 2022-06-21 00:00:00 2022-06-21 00:00:00 Telephone Blossom Christine [facility] 1.2.840.114 350.1.13.10 4.2.7.2.686 [id number] [facility] 2022-06-14 08:16:46 2022-06-14 23:59:00 Outpatient R BLOSSOM CHRISTINE [facility] [id number] [facility] 2022-06-14 08:15:00 2022-06-14 23:59:00 Hospital Encounter Blossom Christine [facility] 1.2840.114 350.1.13.10 4.2.7.2.686 [id number] [facility] 2022-06-14 00:00:00 2022-06-14 00:00:00 Telephone [facility]ce Hus[facility] 1.2840.114 350.1.13.10 4.2.7.2.686 [id number] [facility] 2022-06-09 09:13:45 2022-06-09 23:59:00 Outpatient R BLOSSOM CHRISTINE [facility] [id number] [facility] 2022-06-09 08:00:00 2022-06-09 08:48:43 Office Visit Blossom Christine [facility] [place] 1.2840.114 350.1.13.10 4.2.7.2.686 [id number] [facility] 2022-06-09 00:00:00 2022-06-09 00:00:00 Refill Blossom Christine [facility] 1.0.114 350.1.13.10 4.2.7.2.686 [id number] [facility] 2022-06-09 00:00:00 2022-06-09 00:00:00 Telephone Blossom Christine [facility] 1.840.114 350.1.13.10 4.2.7.2.686 [id number] [facility] 2022-06-02 00:00:00 2022-06-02 00:00:00 Refill Marce Husain [facility] 1.2840.114 350.1.13.10 4.2.7.2.686 [id number] [facility] 2022-04-22 00:00:00 2022-04-22 00:00:00 Refill Marce Husain [facility] 1.840.114 350.1.13.10 4.2.7.2.686 [id number] [facility] 2022-03-23 00:00:00 2022-03-23 00:00:00 Telephone Marce Husain [facility] 1.840.114 350.1.13.10 4.2.7.2.686 [id number] [facility] 2022-03-17 07:30:00 2022-03-17 07:45:00 Office Visit Marce Husain [facility] 1.840.114 350.1.13.10 4.2.7.2.686 [id number] [facility] 2022-03-17 07:30:00 2022-03-17 07:30:00 Outpatient R HUSAIN MARCE [facility] [id number] [facility] 2022-03-17 07:30:00 2022-03-17 07:30:00 Outpatient R HUSAINMARCE [facility] [id number] [facility] 2022-03-16 00:00:00 2022-03-16 00:00:00 [facility] 1.840.114 350.1.13.10 4.2.7.2.686 [id number] [facility] 2021-12-22 00:00:00 2021-12-22 00:00:[address] [facility] 1.114 350.1.13.10 4.2.7.2.686 [id number] [facility] 2021-07-27 07:28:52 2021-07-27 07:50:03 Office Visit Marce Husain [facility] 1.114 350.1.13.10 4.2.7.2.686 [id number] [facility] 2021-07-27 07:45:00 2021-07-27 07:45:00 Outpatient R MARCE HUSAIN [facility] [id number] [facility] 2021-02-16 07:38:48 2021-02-16 07:53:48 Office Visit Marce Husain [facility] Office Building One 1.114 350.1.13.10 4.2.7.2.686 [id number] [facility] 2021-02-16 07:30:00 2021-02-16 07:30:00 Outpatient R MARCE HUSAIN [facility] [id number] [facility] 2020-11-16 07:42:08 2020-11-16 07:57:08 Office Visit Marce Husain [facility] Office Building One 1.114 350.1.13.10 4.2.7.2.686 [id number] [facility] 2020-11-16 07:45:00 2020-11-16 07:45:00 Outpatient R MARCE HUSAIN [facility] [id number] [facility] 2020-08-17 09:38:09 2020-08-17 10:03:39 [facility] 1.114 350.1.13.10 4.2.7.2.686 [id number] [facility] 2020-08-17 09:30:00 2020-08-17 09:30:00 Outpatient R MARCE HUSAIN [facility] [id number] [facility] 2020-06-04 12:44:20 2020-06-04 12:59:20 Office Visit Marce Husain [facility] Office Building One 1..114 350.1.13.10 4.2.7.2.686 [id number] [facility] 2020-06-04 12:45:00 2020-06-04 12:45:00 Outpatient R MARCE HUSAIN [facility] [id number] [facility] 2020-05-01 00:00:00 2020-05-01 00:00:00 Refill Efraín [facility] Office Building One 1..114 350.1.13.10 4.2.7.2.686 [id number] [facility] 2020-02-26 15:47:29 2020-02-26 16:07:29 Urgent Care Pob1, Acute Care [facility] Office Building One 1.114 350.1.13.10 4.2.7.2.686 [id number] 2020-02-26 15:47:29 2020-02-26 16:07:29 Urgent Care Pob1, Acute Care Clinic Roya Nichols [facility] Office Building One 1.114 350.1.13.10 4.2.7.2.686 [id number] [facility] 2020-02-26 15:40:00 2020-02-26 15:40:00 Outpatient R KATIE ROYA [facility] [id number] [facility] 2020-02-25 00:00:00 2020-02-25 00:00:00 Refill Efraín [facility] Office Building [facility] 1.2.840.114 350.1.13.10 4.2.7.2.686 [id number] 2020-02-25 00:00:00 2020-02-25 00:00:00 Refill Efraín Marce [facility] Office Building One 1.2.840.114 350.1.13.10 4.2.7.2.686 [id number] [facility] 2019-12-18 00:00:00 2019-12-18 00:00:00 Refill Efraín Marce [facility] [employer] 1.2.840.114 350.1.13.10 4.2.7.2.686 [id number] 2019-12-18 00:00:00 2019-12-18 00:00:00 Refill Efraín [facility] 1.2.840.114 350.1.13.10 4.2.7.2.686 [id number] [facility] 2019-11-18 08:04:09 2019-11-18 08:19:09 Office Visit Marce Husain [facility] [employer] 1.2.840.114 350.1.13.10 4.2.7.2.686 [id number] 2019-11-18 08:04:09 2019-11-18 08:19:09 Office Visit Marce Husain [facility] [employer] 1.2.840.114 350.1.13.10 4.2.7.2.686 [id number] [facility] 2019-11-18 08:00:00 2019-11-18 08:00:00 Outpatient R MARCE HUSAIN [facility] [id number] [facility] 2019-11-04 00:00:00 2019-11-04 00:00:00 Refill Efraín [facility] [employer] 1.2.840.114 350.1.13.10 4.2.7.2.686 [id number] [facility] 2019-05-23 14:14:38 2019-05-23 15:01:41 Office Visit Marec Husain [facility] Office Building One [id number] 350.1.13.10 4.2.7.2.686 [id number] 044 [id number] [facility] 2019-05-23 00:00:00 2019-05-23 00:00:00 Letter (Out) Marce Husain [facility] Office Building One 1.2.840.114 350.1.13.10 4.2.7.2.686 [id number] [id number] [facility] 2019-05-20 00:00:00 2019-05-20 00:00:00 Refill Efraín [facility] Office Building One 1.2.840.114 350.1.13.10 4.2.7.2.686 [id number] 044 [id number] [facility] 2019-05-14 08:06:28 2019-05-14 08:22:09 [facility] 1.2.840.114 350.1.13.10 4.2.7.2.686 [id number] 044 [id number] [facility] 2019-05-14 00:00:00 2019-05-14 00:00:00 Orders Only Doctor Unassigned, [place] [facility] 1.2.840.114 350.1.13.10 4.2.7.2.686 [id number] [facility] Results Test Description Test Time Test Comments Results Result Co mments Source [facility] & IGG)2022-12-08 22:47:13* Test Item Value Reference Range Interpretation Comme nts HBC (test code = 3086412976) Negative HBC Semi-Quantitative (test code = 8187489558) 3.33 [facility]2 AG-AB WITH [id number] 19:53:46* Test Item Value Reference Range Interpretation Comme nts HIV Semi-quantitative (test code = 87345-1) 0.12 Negative LESVIA (test code = LESVIA) Non-reactive for HIV-1 antigen and HIV-1/HIV-2 antibodies. ?No laboratory evidence of HIV infection. ?Repeat in 2-4 weeks if acute HIV infection is suspected. [facility] [id number] 19:49:44* Test Item Value Reference Range Interpretation Comme [facility] C3 (test code = 3706228687) 120 mg/dL 86-184 Lab Interpretation (test cod e = 68746-6) Normal [facility] [id number] 19:49:44* Test Item Value Reference Range Interpretation Comme nts C4 (test code = 4374561905) 18 mg/dL 20-59 L Lab Interpretation (test cod e = 24043-5) Abnormal [facility]C-REACTIVE [id number] 19:49:44* Test Item Value Reference Range Interpretation Comme nts CRP (test code = 0092304823) 0.2 mg/dL <=0.8 Lab Interpretation (test cod e = 79061-3) Normal [facility]CV [id number] 18:40:53* Test Item Value Reference Range Interpretation Comme nts HCV Ab (test code = 49882-7) Negative HCV Semi-Quantitative (test code = 90528-4) 0.03 [facility] SURFACE [id number] 18:40:53* Test Item Value Reference Range Interpretation Comme nts HBsAB (test code = 3382756793) Positive HBsAb Semi-Quantitative (test code = 9130025697) mIU/mL LESVIA (test code = LESVIA) Interpretation: ?Hepatitis B Surface Antibody ? Negative - Patient is considered to be not immune to infection with HBV. ? ? Positive - Anti-HBs detected at greater than or equal to 12 mIU/mL. ?Patient is considered to be immune to infection with HBV. ? [facility] HospitalTHYROID STIMULATING [id number] 18:23:09 * Test Item Value Reference Range Interpretation Comme nts TSH (test code = 4366867931) 0.75 See_Comment [Automated messa ge] The system which generated this result transmitted reference range: 0.45 - 4.70 mIU/L. The reference range was not used to interpret this result as normal/abnormal. Lab Interpretation (test code = 98670-9) Normal [facility]HEPATITIS [facility] SURFACE [id number] 18:23:09 * Test Item Value Reference Range Interpretation Comme nts HBsAg Semi-Quantitative (darryl t code = 5195-3) 0.06 Negative [facility] HospitalVITAMIN D, [id number] 18:10:28* Test Item Value Reference Range Interpretation Comme nts VIT D 25OH (test code = 12124-4) 36 ng/mL 25-80 LESVIA (test code = LESVIA) Deficiency: <20 ng/mLInsufficiency : 20-24 ng/mLOptimal: 25-80 ng/mL Lab Interpretation (test code = 76297-0) Normal [facility] HospitalCREATINE [id number] 17:49:07* Test Item Value Reference Range Interpretation Comme nts CK (test code = 0476921544) 38 U/L 33-194 Lab Interpretation (test cod e = 73982-6) Normal [facility] HospitalCOMP. METABOLIC PANEL (71836)2022-12-08 17:49:07* Test Item Value Reference Range Interpretation Comme nts NA (test code = 9772428585) 139 mmol/L 135-145 K (test code = 6700593811) 4.4 mmol/L 3.5-5.0 CL (test code = 6061460462) 104 mmol/L 98-108 CO2 TOTAL (test code = 6908907399) 26 mmol/L 23-31 AGAP (test code = 1226117242) 9 2-16 BUN (test code = 9278977124) 7 mg/dL 7-23 GLUCOSE (test code = 0183809298) 100 mg/dL 70-110 CREATININE (test code = 5469786078) 0.71 mg/dL 0.50-1.04 TOTAL BILI (test code = 4212479080) 0.4 mg/dL 0.1-1.1 CALCIUM (test code = 2143087601) 9.3 mg/dL 8.6-10.6 T PROTEIN (test code = 3580559426) 8.5 g/dL 6.3-8.2 H ALBUMIN (test code = 8542349311) 4.9 g/dL 3.5-5.0 ALK PHOS (test code = 2924437344) 106 U/L 34-122 ALTv (test code = 1742-6) 13 U/L 5-35 AST(SGOT) (test code = 6134338504) 19 U/L 13-40 eGFR (test code = 4171406396) 89.0 mL/min/1.73m2 LESVIA (test code = LESVIA) Association of Glomerular Filtration Rate (GFR) and Staging of Kidney Disease* + --+ --+ ------+| GFR (mL/min/1.73 m2) ?| With Kidney Damage ?| ?Without Kidney Damage+ --------+ --------+ +| ?>90 ?| ?Stage one ?| ? Normal ?+ ---+ ---+ -------+| ?60-89 ?| ?Stage two ?| ? Decreased GFR ? + --+ --+ ------+| ?30-59 ?| ?Stage three ?| ? Stage three ? + --+ --+ ------+| ?15-29 ?| ?Stage four ? | ? Stage four ?+ ---+ ---+ -------+| ?<15 (or dialysis) ? ?| ?Stage five ? | ? Stage five ?+ ---+ ---+ -------+ *Each stage assumes the associated GFR level has been in effect for at least three months. ?Stages 1 to 5, with or without kidney disease, indicate chronic kidney disease. Notes: Determination of stages one and two (with eGFR >59mL/min/1.73 m2) requires estimation of kidney damage for at least three months as defined by structural or functional abnormalities of the kidney, manifested by either:Pathological abnormalities or Markers of kidney damage (including abnormalities in the composition of the blood or urine or abnormalities in imaging tests). Lab Interpretation (test code = 95519-2) Abnormal [facility] WITH [id number] 16:53:19* Test Item Value Reference Range Interpretation Comme nts WBC (test code = 6690-2) 5.51 See_Comment [Automated messa ge] The system which generated this result transmitted reference range: 4.30 - 11.10 10*3/?L. The reference range was not used to interpret this result as normal/abnormal. RBC (test code = 789-8) 4.93 See_Comment [Automated messa ge] The system which generated this result transmitted reference range: 3.93 - 5.25 10*6/?L. The reference range was not used to interpret this result as normal/abnormal. HGB (test code = 718-7) 9.9 g/dL 11.6-15.0 L HCT (test code = 4544-3) 34.3 % 35.7-45.2 L MCV (test code = 787-2) 69.6 fL 80.6-95.5 L MCH (test code = 785-6) 20.1 pg 25.9-32.8 L MCHC (test code = 786-4) 28.9 g/dL 31.6-35.1 L RDW-SD (test code = 87388-6) 45.2 fL 39.0-49.9 RDW-CV (test code = 788-0) 18.8 % 12.0-15.5 H PLT (test code = 777-3) 350 See_Comment [Automated [employer] ge] The system which generated this result transmitted reference range: 166 - 358 10*3/?L. The reference range was not used to interpret this result as normal/abnormal. MPV (test code = 51858-8) 9.7 fL 9.5-12.9 NRBC/100 WBC (test code = 0638033258) 0.0 See_Comment [Automated [employer] ssage] The system which generated this result transmitted reference range: 0.0 - 10.0 /100 WBCs. The reference range was not used to interpret this result as normal/abnormal. NRBC x10^3 (test code = 0397666158) See_Comment [Automated [employer] ge] The system which generated this result transmitted reference range: 10*3/?L. The reference range was not used to interpret this result as normal/abnormal. GRAN MAT (NEUT) % (test code = 770-8) 52.0 % IMM GRAN % (test code = 7767848075) 0.20 % LYMPH % (test code = 736-9) 37.4 % MONO % (test code = 5905-5) 7.3 % EOS % (test code = 713-8) 2.2 % BASO % (test code = 706-2) 0.9 % GRAN MAT x10^3(ANC) (test code = 5374437368) 2.87 10*3/uL 1.88-7.09 IMM GRAN x10^3 (test code = 1129025443) 0.00-0.06 LYMPH x10^3 (test code = 731-0) 2.06 10*3/uL 1.32-3.29 MONO x10^3 (test code = 742-7) 0.40 10*3/uL 0.33-0.92 EOS x10^3 (test code = 711-2) 0.12 10*3/uL 0.03-0.39 BASO x10^3 (test code = 704-7) 0.05 10*3/uL 0.01-0.07 Lab Interpretation (test code = 12099-5) Abnormal [facility]PO[facility] [id number] 16:00:00* Test Item Value Reference Range Interpretation Comme nts POCT PREG (test code = 1605) Negative On board controls acceptable with C Line (test code = 3574) Yes POCT PREG LOT # (test code = 3575) POCT PREG TEST DATE ( test code = 3576) [facility]PO[facility] [id number] 16:00:00* Test Item Value Reference Range Interpretation Comme nts POCT PREG (test code = 1605) Negative On board controls acceptable with C Line (test code = 3574) Yes POCT PREG LOT # (test code = 3575) POCT PREG TEST DATE ( test code = 3576) [facility] Notes Date/Time Note Provider Source 2023-04-10 16:02:44 RadhaFShai/qqJLFOPyqn2z DRBikWy1qPLLpG33ixfD4B Qj7rKGwwntr6WP97XrrgAN7967-17-96P17:02:44F ormatting of this note is different from the original.dextroamphetamine-amphetamine 20 mg tablet 60 tablet 0 03/05/2023 Last Refilled: 03/05/23 Notes: [id number] [place] [address] [facility] [address]Phone: Sxpwno VisitsDate Type Provider Dept 12/22/22 Office Visit Blossom Christine PA [facility] 12/13/22 Office Visit Marce Husain MD [facility] 06/09/22 Office Visit Blossom Christine PA [facility] 03/17/22 Office Visit Marce Husain MD [facility] Showing recent visits within past 540 days with a meds authorizing provider and meeting all other requirementsFuture AppointmentsNo visits were found meeting these conditions.Showing future appointments within next 150 days with a meds authorizing provider and meeting all other requirements 79611-1Dzrkjsvio encounter ZflePD2945-54-80R48:03:03Telephone encounter [id number] 9|[id number] for patient dent51429-0SixlJBODVGUUCP[address] EbocHunynsddyDzgfzwwlfDQFO3867978002MTIANQ ILNLLQWPXTBFMLDY7871-58-37T93:03:031.2.840 .158548.1.72.3.15|1.2.840.990896.1.13.104. [id number] [facility] 2023-04-10 16:02:38 +ydghXZwNt6+Q2Sh/Goc 3QUlKd3P7H4TsPYZsQkH0p eM9T0/D/r1CrUGK8/aKZzH9597-09-08E05:02:38 Message from [employer] [place]:Refills have been requested for the following medications: dextroamphetamine-amphetamine 20 mg tablet [Marce Husain]Preferred pharmacy: [facility] #[id number] - [place] [address] [facility] method: Pickup 80667-4Wgswlbqwt encounter SztuLT6605-23-42G55:02:38Telephone encounter [id number] 9|[id number] for patient gnga95993-2FqyxNZDRKQXFDE[address] AttuOimmlnoqoXevwvtytjYZBE8080584236HFCMKO FOIVQISBWFGMXLEL2863-30-51W00:02:381.2.840 .262503.1.72.3.15|1.2.840.659938.1.13.104. [id number] [facility]"
--- NOTE | 2023-09-23 18:22 | RAD REPORT ---
EXAM DESCRIPTION: Brian Single View09/23/2023 6:05 pm CLINICAL HISTORY: cough COMPARISON: September 19, 2023 FINDINGS: The lungs appear clear of acute infiltrate. The heart is normal size IMPRESSION: No acute abnormalities displayed
[2023-09-23 18:36] LABS: Absolute Lymphocytes (CBC) 1.6 K/uL (0.7-4.9); Hematocrit 30.4 % (36.0-45.0); Lymphocytes % 19.1 % (15.3-44.8); MCV 68.2 fL (80-100); MPV 7.2 fL (7.6-11.3); Platelets 359 thou/uL (152-406); RBC Red Blood Cell Count 4.46 M/uL (3.86-4.86)
[2023-09-23 18:47] LABS: Protime INR 1.07
[2023-09-23 18:52] LABS: Albumin 3.8 g/dL (3.4-5.0); Bilirubin Direct 0.1 mg/dL (0-0.2); Bilirubin Indirect, Calculated 0.3 mg/dL (0.2-0.8); Bilirubin Total 0.4 mg/dL (0.2-1.0); Magnesium 2.3 mg/dL (1.6-2.4); Potassium 3.7 mEq/L (3.5-5.1); Protein, Total 8.3 g/dL (6.4-8.2); Troponin High Sensitivity 5.2 pg/mL (<58.9)
[2023-09-23 19:19] LABS: Blood Morphology Comment NOTED (NOT SEEN); Hypochromasia 1+; Platelet Estimate ADEQ; White Blood Cell Scan OK (OK)
--- NOTE | 2023-09-23 19:31 | EDPHYS ---
Physician Documentation [facility] Name: Jessica Osuna Age: 47 yrs Sex: Female : 1975 Arrival Date: 09/23/2023 Time: 17:09 Bed 14 Private MD: NAA Physician Madhu Oreilly HPI: 09/23 18:20 This 47 yrs old Female presents to ER via Wheelchair with complaints of deshawn Nausea/Vomiting, Headache, Sugar issue. 18:20 The patient presents to the emergency department with nausea, vomiting, that is deshawn intermittent. Onset: The symptoms/episode began/occurred 1 day(s) ago. Possible causes: unknown. The symptoms are aggravated by nothing. The symptoms are alleviated by nothing. Associated signs and symptoms: Pertinent positives: nausea, vomiting. Severity of symptoms: At their worst the symptoms were mild in the emergency department the symptoms are unchanged. The patient has not experienced similar symptoms in the past. Historical: - Allergies: 17:57 Levaquin; nj1 - PMHx: 17:57 Asthma; ADHD (Asthma); Hypoglycemia; nj1 - Immunization history:: Client reports having NOT received the Covid vaccine. - Social history:: Smoking status: Patient denies any tobacco usage or history of. ROS: 18:21 Constitutional: Negative for fever, chills, and weight loss, Eyes: Negative for injury, deshawn pain, redness, and discharge, ENT: Negative for injury, pain, and discharge, Neck: Negative for injury, pain, and swelling, Cardiovascular: Negative for chest pain, palpitations, and edema, Respiratory: Negative for shortness of breath, cough, wheezing, and pleuritic chest pain, Abdomen/GI: Negative for abdominal pain, nausea, vomiting, diarrhea, and constipation, Back: Negative for injury and pain, : Negative for injury, bleeding, discharge, and swelling, MS/Extremity: Negative for injury and deformity, Skin: Negative for injury, rash, and discoloration, Psych: Negative for depression, anxiety, suicide ideation, homicidal ideation, and hallucinations, Allergy/Immunology: Negative for hives, rash, and allergies, Endocrine: Negative for neck swelling, polydipsia, polyuria, polyphagia, and marked weight changes, Hematologic/Lymphatic: Negative for swollen nodes, abnormal bleeding, and unusual bruising, 18:21 Neuro: Positive for weakness, Exam: 18:21 Constitutional: This is a well developed, well nourished patient who is awake, alert, deshawn and in no acute distress. Head/Face: Normocephalic, atraumatic. Eyes: Pupils equal round and reactive to light, extra-ocular motions intact. Lids and lashes normal. Conjunctiva and sclera are non-icteric and not injected. Cornea within normal limits. Periorbital areas with no swelling, redness, or edema. ENT: Nares patent. No nasal discharge, no septal abnormalities noted. Tympanic membranes are normal and external auditory canals are clear. Oropharynx with no redness, swelling, or masses, exudates, or evidence of obstruction, uvula midline. Mucous membranes moist. Neck: Trachea midline, no thyromegaly or masses palpated, and no cervical lymphadenopathy. Supple, full range of motion without nuchal rigidity, or vertebral point tenderness. No Meningismus. Chest/axilla: Normal chest wall appearance and motion. Nontender with no deformity. No lesions are appreciated. Cardiovascular: Regular rate and rhythm with a normal S1 and S2. No gallops, murmurs, or rubs. Normal PMI, no JVD. No pulse deficits. Respiratory: Lungs have equal breath sounds bilaterally, clear to auscultation and percussion. No rales, rhonchi or wheezes noted. No increased work of breathing, no retractions or nasal flaring. Abdomen/GI: Soft, non-tender, with normal bowel sounds. No distension or tympany. No guarding or rebound. No evidence of tenderness throughout. Back: No spinal tenderness. No costovertebral tenderness. Full range of motion. Skin: Warm, dry with normal turgor. Normal color with no rashes, no lesions, and no evidence of cellulitis. MS/ Extremity: Pulses equal, no cyanosis. Neurovascular intact. Full, normal range of motion. Neuro: Awake and alert, GCS 15, oriented to person, place, time, and situation. Cranial nerves II-XII grossly intact. Motor strength 5/5 in all extremities. Sensory grossly intact. Cerebellar exam normal. Normal gait. Psych: Awake, alert, with orientation to person, place and time. Behavior, mood, and affect are within normal limits. 18:21 Musculoskeletal/extremity: ROM: full active range of motion, full passive range of motion, Circulation is intact in all extremities. Sensation intact. Compartment Syndrome exam of affected extremity: is normal. Joints: All joints appear normal with full range of motion. Weight bearing: able to fully bear weight, without difficulty, DVT Exam: No signs of deep vein thrombosis. no pain, no swelling, no tenderness, negative Homans' sign noted on exam, no appreciated bluish discoloration, no erythema, no increased warmth, 18:21 Neuro: Orientation: is normal, appropriate for stated age, no acute changes, Mentation: is normal, appropriate for stated age, no acute changes, Memory: is normal, appropriate for stated age, no acute changes, Cranial nerves: grossly normal, is grossly normal based on the patient's age, no acute changes, Cerebellar function: is grossly normal, is grossly normal based on the patient's age, no acute changes, Motor: is normal, is grossly normal based on the patient's age, no acute changes, moves all fours, strength is normal, Sensation: is normal, no obvious gross deficits, no acute changes, Gait: is steady, Babinski testing is normal, seizure activity, is not displayed by the patient, 18:58 ECG was reviewed by the Attending Physician. [facility] 18:59 ECG was reviewed by the Attending Physician. [facility] Vital Signs: 17:54 BP 119 / 77; Pulse 82; Resp 16; Temp 98.2(TE); Pulse Ox 100% on R/A; Weight 68.95 kg; nj1 Height 5 ft. 8 in. ; Pain 8/10; 18:31 BP 118 / 70; Pulse 80; Resp 16 S; Pulse Ox 100% on R/A; kc6 17:54 Body Mass Index 23.11 (68.95 kg, 172.72 cm) nj 17:54 Pain Scale: Adult nj1 Becca Coma Score: 18:24 Eye Response: spontaneous(4). Motor Response: obeys commands(6). Verbal Response: deshawn oriented(5). Total: 15. MDM: 17:15 Patient medically screened. [facility] 18:24 Differential diagnosis: Nonspecific abd pain, gastritis, viral gastroenteritis, deshawn gastroenteritis. Differential Diagnosis altered mental status. Data reviewed: vital signs, nurses notes, lab test result(s), EKG, radiologic studies, CT scan, plain films. Consideration of Admission/Observation Escalation of care including admission/observation considered. I considered the following discharge prescriptions or medication management in the emergency department Medications were administered in the Emergency Department. See MAR. Independent interpretation of the following test(s) in the Emergency Department EKG: See my EKG interpretation above. Test considered but Not performed: MRI: NO NEW MRI BRAIN. 09/23 17:18 Order name: Basic Metabolic Panel; Complete Time: 18:57 [facility] 09/23 17:18 Order name: CBC with Diff; Complete Time: 19:29 [facility] 09/23 20:03 Interpretation: Normal except: HGB 9.6; HCT 30.4; MCV 68.2; MCH 21.5; MCHC 31.5; RDW cp 19.3; MPV 7.2. 09/23 17:18 Order name: LFT's; Complete Time: 18:57 [facility] 09/23 17:18 Order name: Magnesium; Complete Time: 18:57 [facility] 09/23 17:18 Order name: NT PRO-BNP; Complete Time: 18:57 [facility] 09/23 17:18 Order name: PT-INR; Complete Time: 18:57 [facility] 09/23 17:18 Order name: Troponin HS; Complete Time: 18:57 [facility] 09/23 17:18 Order name: Urinalysis w/ reflexes [facility] 09/23 18:38 Order name: Glucose, Ancillary Testing; Complete Time: 18:57 EDAL 09/23 18:43 Order name: CBC Smear Scan; Complete Time: 19:29 EDAL 09/23 17:18 Order name: XRAY Chest (1 view); Complete Time: 18:57 [facility] 09/23 18:58 Order name: CT Head Brain wo Cont; Complete Time: 20:02 [facility] 09/23 20:03 Interpretation: Report reviewed. 09/23 17:18 Order name: EKG; Complete Time: 17:18 [facility] 09/23 17:18 Order name: Cardiac monitoring; Complete Time: 18:29 [facility] 09/23 17:18 Order name: EKG - Nurse/Tech; Complete Time: 18:29 [facility] 09/23 17:18 Order name: IV Saline Lock; Complete Time: 18:29 [facility] 09/23 17:18 Order name: Labs collected and sent; Complete Time: 18:29 [facility] 09/23 17:18 Order name: O2 Per Protocol; Complete Time: 18:29 [facility] 09/23 17:18 Order name: O2 Sat Monitoring; Complete Time: 18:29 deshawn EC:58 Rate is 81 beats/min. Rhythm is regular. QRS [place] is Normal. AK interval is normal. QRS deshawn interval is normal. QT interval is normal. No Q waves. T waves are Normal. No ST changes noted. Clinical impression: NSR w/ Non-specific ST/T Changes and No evidence of ischemia. Interpreted by me. Reviewed by me. 18:59 Rate is 72 beats/min. Rhythm is regular. QRS [place] is Normal. AK interval is normal. QRS deshawn interval is normal. QT interval is normal. T waves are Normal. No ST changes noted. Clinical impression: Normal ECG and No evidence of ischemia. Interpreted by me. Reviewed by me. Administered Medications: 18:29 Drug: NS 0.9% IV 1000 ml IV at 1 bolus Per protocol; 1000 mL bolus Route: IV; Rate: 1 kc6 bolus; Site: right antecubital; 18:29 Drug: NS 0.9% IV 1000 ml IV at 1 bolus Per protocol; 1000 mL bolus Route: IV; Rate: 1 kc6 bolus; Site: right antecubital; 18:29 Drug: Ondansetron IVP 4 mg IVP once; over 2 minutes Route: IVP; Site: right antecubital;kc6 19:05 Follow up: Response: No adverse reaction; Nausea is decreased; Vomiting decreased ld1 Disposition Summary: 09/23/23 19:30 Discharge Ordered Notes: Location: Home deshawn Problem: new deshawn Symptoms: have improved deshawn Condition: Stable deshawn Diagnosis - Vomiting without nausea deshawn - Weakness deshawn - Headache deshawn - Anemia, unspecified deshawn Followup: deshawn - With: Private Physician - When: 2 - 3 days - Reason: Recheck today's complaints, Continuance of care, Re-evaluation by your physician Followup: deshawn - With: Ermias Moon MD - When: 2 - 3 days - Reason: Recheck today's complaints, Continuance of care, Re-evaluation by your physician Discharge Instructions: - Discharge Summary Sheet deshawn - Anemia deshawn - General Headache Without Cause deshawn - Weakness deshawn - Nausea and Vomiting, Adult, Xaup-my-Kmaz deshawn - Weakness, Icwu-mn-Mvvn deshawn - General Headache Without Cause, Wwxm-tq-Qfjx deshawn Forms: - Medication Reconciliation Form deshawn - Thank You Letter deshawn - Antibiotic Education deshawn - Prescription Opioid Use deshawn - Patient Portal Instructions deshawn - Leadership Thank You Letter deshawn Prescriptions: - ondansetron 4 mg Oral Tablet,disintegrating - take 1 tablet ORAL route every 6-8 hours as needed for nausea and vomiting; 20 deshawn tablet; Refills: 0, Product Selection Permitted Signatures: Dispatcher [employer] Madhu Escobar, Madhu Resendiz MD, cha, Daisy Llamas cp RN RN kc6 Sophy Norwood RN RN nj1 Karo Mojica RN ld1
--- NOTE | 2023-09-23 19:31 | ER ---
Nurse's Notes [facility] Name: Jessica Osuna Age: 47 yrs Sex: Female : 1975 Arrival Date: 09/23/2023 Time: 17:09 Bed 14 Private MD: Diagnosis: Vomiting without nausea;Weakness;Headache;Anemia, unspecified Presentation: 09/23 17:54 Chief complaint: Patient states: Nauseous, headache, blurry vision, blood sugar nj1 problem. Had same complaints but more severe on Monday, seen here and kept overnight, dx with hypoglycemia. Coronavirus screen: Vaccine status: Patient reports being unvaccinated. Ebola Screen: Patient denies travel to an Ebola-affected area in the 21 days before illness onset. Initial Sepsis Screen: Does the patient meet any 2 criteria? No. Patient's initial sepsis screen is negative. Does the patient have a suspected source of infection? No. Patient's initial sepsis screen is negative. Risk Assessment: Do you want to hurt yourself or someone else? Patient reports no desire to harm self or others. Onset of symptoms was September 23, 2023. 17:54 Method Of Arrival: Wheelchair nj1 17:54 Acuity: TINA 3 nj1 Historical: - Allergies: 17:57 Levaquin; nj1 - PMHx: 17:57 Asthma; ADHD (Asthma); Hypoglycemia; nj1 - Immunization history:: Client reports having NOT received the Covid vaccine. - Social history:: Smoking status: Patient denies any tobacco usage or history of. Screenin:29 [facility] ED Fall Risk Assessment (Adult) History of falling in the last 3 months, kc6 including since admission No falls in past 3 months (0 pts) Confusion or Disorientation No (0 pts) Intoxicated or Sedated No (0 pts) Impaired Gait No (0 pts) Mobility Assist Device Used No (0 pt) Altered Elimination No (0 pt) Score/Fall Risk Level 0 - 2 = Low Risk. Abuse screen: Denies threats or abuse. Denies injuries from another. Nutritional screening: No deficits noted. Tuberculosis screening: No symptoms or risk factors identified. Assessment: 18:30 General: Appears in no apparent distress. comfortable, well groomed, well developed, kc6 Behavior is calm, cooperative, appropriate for age. Neuro: Level of Consciousness is awake, alert, obeys commands, lethargic, Oriented to person, place, time, situation, Appropriate for age Reports blurred vision headache. Cardiovascular: Heart tones S1 S2 present Capillary refill < 3 seconds Rhythm is sinus rhythm. Respiratory: Airway is patent Trachea midline Respiratory effort is even, unlabored, Respiratory pattern is regular, symmetrical. GI: Abdomen is flat, non-distended, Bowel sounds present X 4 quads. Abd is soft and non tender X 4 quads. Reports nausea, vomiting, Patient currently denies abdominal pain, diarrhea. : No signs and/or symptoms were reported regarding the genitourinary system. EENT: No signs and/or symptoms were reported regarding the EENT system. Derm: No signs and/or symptoms reported regarding the dermatologic system. Skin is intact, is healthy with good turgor, Skin is dry, Skin is pale, Skin temperature is warm. Musculoskeletal: No signs and/or symptoms reported regarding the musculoskeletal system. Circulation, motion, and sensation intact. Capillary refill < 3 seconds, Range of motion: intact in all extremities. Vital Signs: 17:54 BP 119 / 77; Pulse 82; Resp 16; Temp 98.2(TE); Pulse Ox 100% on R/A; Weight 68.95 kg; nj1 Height 5 ft. 8 in. ; Pain 8/10; 18:31 BP 118 / 70; Pulse 80; Resp 16 S; Pulse Ox 100% on R/A; kc6 17:54 Body Mass Index 23.11 (68.95 kg, 172.72 cm) nj1 17:54 Pain Scale: Adult nj1 [place] Coma Score: 18:24 Eye Response: spontaneous(4). Motor Response: obeys commands(6). Verbal Response: deshawn oriented(5). Total: 15. ED Course: 17:13 Patient arrived in ED. ts1 17:15 Madhu Oreilly MD is Attending Physician. deshawn 17:57 Triage completed. nj1 17:57 Arm band placed on. nj1 17:58 Daisy Aguiar, SUZETTE is Primary Nurse. kc6 18:07 XRAY Chest (1 view) In Process Unspecified. EDMS 18:29 Inserted saline lock: 20 gauge in right antecubital area, using aseptic technique. kc6 Blood collected. Patient maintains SpO2 saturation greater than 95% on room air. 18:30 Patient has correct armband on for positive identification. Bed in low position. Call kc6 light in reach. Side rails up X 1. Adult w/ patient. Client placed on continuous cardiac and pulse oximetry monitoring. NIBP monitoring applied. 19:04 Report given to SUZETTE Farooq. ld1 19:30 Ermias Moon MD is Referral Physician. [facility] 19:33 CT Head Brain wo Cont In Process Unspecified. EDMS 20:28 No provider procedures requiring assistance completed. IV discontinued, intact, lg3 bleeding controlled, No redness/swelling at site. Pressure dressing applied. Administered Medications: 18:29 Drug: NS 0.9% IV 1000 ml IV at 1 bolus Per protocol; 1000 mL bolus Route: IV; Rate: 1 kc6 bolus; Site: right antecubital; 18:29 Drug: NS 0.9% IV 1000 ml IV at 1 bolus Per protocol; 1000 mL bolus Route: IV; Rate: 1 kc6 bolus; Site: right antecubital; 18:29 Drug: Ondansetron IVP 4 mg IVP once; over 2 minutes Route: IVP; Site: right antecubital;kc6 19:05 Follow up: Response: No adverse reaction; Nausea is decreased; Vomiting decreased ld1 Medication: 20:28 VIS not applicable for this client. lg3 Outcome: 19:30 Discharge ordered by . deshawn 20:28 Discharged to home ambulatory, lg3 20:28 Condition: stable 20:28 Discharge instructions given to patient, Instructed on discharge instructions, follow up and referral plans. medication usage, Demonstrated understanding of instructions, follow-up care, medications, Prescriptions given X 1, 20:28 Patient left the ED. lg3 Signatures: Dispatcher [employer] EDTX Madhu Oreilly MD MD cha Able, Lacie RN RN lg3 Karo Mojica RN RN ld1 Daisy Aguiar RN RN kc6 Sophy Norwood RN RN nj1 Blessing Foster PAS PAS ts1
--- NOTE | 2023-09-23 20:01 | RAD REPORT ---
EXAM DESCRIPTION: CT - Head Brain Wo Cont - 09/23/2023 7:31 pm CLINICAL HISTORY: Headache COMPARISON: September 19, 2023 TECHNIQUE: Computed axial tomography of the head was obtained. IV contrast was not requested. All CT scans are performed using dose optimization technique as appropriate and may include automated exposure control or mA/KV adjustment according to patient size. FINDINGS: An intracranial bleed is not seen The ventricles are normal in caliber No significant hypodense areas within the brain visualized 1.9 centimeter fluid collection abutting the left cerebral convexity is unchanged. It may represent a n arachnoid cyst No extra-axial fluid collection is noted. Fluid within the sinuses/ mastoids is not seen IMPRESSION: No acute intracranial abnormality is seen If patient's symptoms persist MRI of the brain would be recommended
[2023-09-23 20:07] LABS: Specific Gravity 1.008 (1.005-1.030); Urine Bacteria <20 /HPF (<20); Urine Bilirubin NEGATIVE (Negative); Urine Blood Negative (Negative); Urine Clarity Turbid (Clear); Urine Color Colorless (Yellow); Urine Glucose NEGATIVE (Negative); Urine Mucus Slight /HPF (None Seen); Urine Protein NEGATIVE (Negative); Urine RBC <5 /HPF (None Seen); Urine Urobilinogen Normal (Normal)
[2023-09-23 22:01] VITALS: BP 118/70; TEMP 98.2; O2SAT 100
--- NOTE | 2023-09-25 17:03 | EKG ---
Test Date: 2023-09-23 Test Time: 18:11:06 [employer] Train Operator: CRUZ MEASUREMENT RESULTS: Intervals: Rate: 81 MD: 108 QRSD: 88 QT: 392 QTc: 455 Clarence: P: 60 MD: 108 QRS: 82 T: 67 INTERPRETIVE STATEMENTS: Sinus rhythm normal ECG Electronically Signed On 09-25-23 16:58:00 [employer] by Gabriel Novak
== END ==
LOC: ER 17:09
DX: R11.2 Nausea with vomiting, unspecified (principal); R53.1 Weakness; R51.9 Headache, unspecified; D64.9 Anemia, unspecified; Z88.1 Allergy status to other antibiotic agents; Z28.310 Unvaccinated for COVID-19
CPT/HCPCS: 93005; 85025; 81001; 80048; 36415; 83735; 85610; 82947; 80076; 84484; 83880; 70450; 71045; 96374; 99285; J2405; J7030

== ENCOUNTER 2024-09-05 01:45 | Emergency (ER) | payer BC ==
--- OUTSIDE RECORDS SUMMARY | 2024-09-05 01:51 | XMS REPORT | Continuity of Care Document ---
Author Name Unknown Address [address] [facility]. 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 Name Role Phone Marce Husain MD Primary Care Physician +[phone] Marce Husain MD Attending Clinician [phone] Allie Melendrez RN Attending Clinician Unavail able Marce Husain MD Attending Clinician + [phone] BROOK MORROW Attending Clinician Unavailable Brook Morrow MD Attending Clinician [phone] MARCE HUSAIN Attending Clinician Unavailable Doctor Unassigned, [place] Attending Clinician U navailable RAÚL ARMANDO Attending Clinician Unavail able Leticia Worthington RN Attending Clinician Unavailbeto Ray [facility]ician Unava ilRaúl Kaba MD Attending Clinician Blossom Carrillo Attending Clinician [phone] BLOSSOM CHRISTINE Attending Clinician Unavailable Pcp-Lab Attending Clinician Unavailable NATO DURAN Attending Clinician Unavailable NATO DURAN Attending Clinician Unavailable Pob, [facility] Main Attending Clinician UnavailNato Callahan DO Attending Clinician [phone] Pob[facility], Acute [facility] Attending Clinician Unav ailable Roya Zabala Attending Clinician + [phone] ROYA NICHOLS Attending [...] hyperactiv ity Disease Active 2014-09 00:00: 00 [facility] Allergies, Adverse Reactions, Alerts Allergy Name Allergy Type Status Severity Reaction(s) Onset Date Inactive Date Treating Clinician Comments Source Levoflox acin Propensi ty to adverse reaction s Active Shortness of Breath 2014-09 00:00: 00 [facility] LEVOFLOX ACIN DRUG INGREDI Active SOB 2014-09 00:00: 00 [facility] Social History Social Habit Start Date Stop Date Quantity Comments Source Gender identity [facility] Alcoholic beverage intake 2024-02-12 00:00:00 2024-02-12 00:00:00 0 /d [facility] History of Social function 2023-07-12 00:00:00 2023-07-12 00:00:00 [facility] Alcohol intake 2023-01-07 00:00:00 2023-01-07 00:00:00 0 /d [facility] Exposure to SARS-CoV-2 (event) 2022-12-12 00:00:00 2022-12-22 07:02:00 Not sure [facility] Tobacco use and exposure 2022-06-09 00:00:00 2022-06-09 00:00:00 Smokeless tobacco non-user [facility] Sex assigned at 1975 00:00:00 1975 00:00:00 [facility] Smoking Status Start Date Stop Date Source Never smoked tobacco [facility] Medications Ordered Medication Name Filled Medication Name Start Date Stop Date Current Medication? Ordering Clinician Indication Dosage Frequency Signature (SIG) Comments Components Source dextroamphe tamine-amph etamine 20 mg tablet 2023-09 2-16 00:00: 00 Yes [id number] 20mg Take 1 tablet by mouth in the morning and 1 tablet in the evening. [facility] dextroamphe tamine-amph etamine 20 mg tablet 2023-09 0-30 00:00: 00 08-23 00:00 :00 No [id number] 20mg Take 1 tablet by mouth in the morning and 1 tablet in the evening. [facility] dextroamphe tamine-amph etamine 20 mg tablet 0 9-19 00:00: 00 07-09 00:00 :00 No [id number] 20mg Take 1 tablet by mouth in the morning and 1 tablet in the evening. [facility] dextroamphe tamine-amph etamine 20 mg tablet 0 8-07 00:00: 00 05-29 00:00 :00 No [id number] 20mg Take 1 tablet by mouth in the morning and 1 tablet in the evening. [facility] dextroamphe tamine-amph etamine 20 mg tablet 6 00:00: 00 04-17 00:00 :00 No [id number] 20mg Take 1 tablet by mouth in the morning and 1 tablet in the evening. [facility] ketorolac (TORADOL) injection 30 mg 02-11 13:30: 00 02-11 12:47 :00 No 30mg 30 mg, Slow IV Push, ONCE, 1 dose, On Mon02/12/24 at 0830, Routine [facility] NaCl 0.9% (NS) bolus infusion 1,000 mL 02-11 13:30: 00 02-11 14:35 :00 No 1000mL at 999 mL/hr, 1,000 mL, IV Piggyback, ONCE, 1 dose, On Mon02/12/24 at 0830, STAT [facility] diphenhydrA MINE (BENADRYL) injection 25 mg 02-11 12:45: 00 02-11 12:48 :00 No 25mg 25 mg, Slow IV Push, ONCE, 1 dose, On Mon02/12/24 at 0745, STAT [facility] metoclopram darwin HCl (REGLAN) injection 10 mg 02-11 12:45: 00 02-11 12:47 :00 No 10mg 10 mg, Slow IV Push, ONCE, 1 dose, On Mon02/12/24 at 0745, ANTHONY [facility] dextroamphe tamine-amph etamine 20 mg tablet 20 00:00: 00 03-07 00:00 :00 No [id number] 20mg Take 1 tablet by mouth in the morning and 1 tablet in the evening. [facility] dextroamphe tamine-amph etamine 20 mg tablet 2-15 00:00: 00 01-28 00:00 :00 No [id number] 20mg Take 1 tablet by mouth in the morning and 1 tablet in the evening. [facility] dextroamphe tamine-amph etamine 20 mg tablet 2022-09 00:00: 00 Yes [id number] 20mg Take 1 tablet by mouth in the morning and 1 tablet in the evening. [facility] montelukast 10 mg tablet 2022-09 00:00: 00 Yes [id number] 10mg Take 1 tablet by mouth in the morning. [facility] dextroamphe tamine-amph etamine 20 mg tablet 2022-09 00:00: 00 08-30 00:00 :00 No [id number] 20mg Take 1 tablet by mouth in the morning and 1 tablet in the evening. [facility] dextroamphe tamine-amph etamine 20 mg tablet 04-11 00:00: 00 07-12 00:00 :00 No [id number] 20mg Take 1 tablet by mouth in the morning and 1 tablet in the evening. [facility] dextroamphe tamine-amph etamine 20 mg tablet 03-05 00:00: 00 Yes [id number] 20mg Take 1 tablet by mouth in the morning and 1 tablet in the evening. [facility] dextroamphe tamine-amph etamine 20 mg tablet 5-15 00:00: 00 03-05 00:00 :00 No [id number] 20mg Take 1 tablet by mouth in the morning and 1 tablet in the evening. [facility] mycophenola te mofetil 500 mg tablet 01-07 00:00: 00 Yes [id number] 500mg Take 1 tablet by mouth every 12 (twelve) hours. [facility] polymyxin B sulf-trimet hoprim 10,000 unit- 1 mg/mL ophthalmic drops 4-13 00:00: 00 Yes [id number] Apply 1 drop to both eyes every 3 hours while awake for 7 days. [facility] dextroamphe tamine-amph etamine 20 mg tablet 12-09 00:00: 00 01-23 00:00 :00 No [id number] 20mg Take 1 tablet by mouth in the morning and 1 tablet in the evening. [facility] dextroamphe tamine-amph etamine 20 mg tablet 2021-09 00:00: 00 12-09 00:00 :00 No [id number] 20mg Take 1 tablet by mouth in the morning and 1 tablet in the evening. [facility] dextroamphe tamine-amph etamine 20 mg tablet 2021-09 00:00: 00 Yes [id number] 20mg Take 1 tablet by mouth in the morning and 1 tablet in the evening. [facility] MONTELUKAST 10 mg tablet 2021-09 00:00: 00 Yes [id number] 10mg TAKE 1 TABLET BY MOUTH IN THE MORNING [facility] azelastine 137 mcg (0.1 %) nasal spray 06-09 00:00: 00 Yes [id number] 1{spray } Use 1 [place] in each nostril in the morning and 1 [place] in the evening. Use in each nostril as directed [facility] montelukast 10 mg tablet 06-09 00:00: 00 07-14 00:00 :00 No [id number] 10mg Take 1 tablet by mouth in the morning. [facility] dextroamphe tamine-amph etamine 20 mg tablet 06-06 00:00: 00 08-01 00:00 :00 No [id number] 20mg Take 1 tablet by mouth in the morning and 1 tablet in the evening. [facility] dextroamphe tamine-amph etamine 20 mg tablet 815 00:00: 00 Yes [id number] 20mg Take 1 tablet by mouth in the morning and 1 tablet in the evening. [facility] azithromyci n 250 mg tablet 7-14 00:00: 00 06-09 00:00 :00 No [id number] 250mg Take 1 tablet by mouth in the morning. [facility] azithromyci n 250 mg tablet 7- 00:00: 00 03-24 00:00 :00 No [id number] 250mg Take 1 tablet by mouth daily. [facility] dextroamphe tamine-amph etamine 20 mg tablet 7-06 00:00: 00 04-25 00:00 :00 No [id number] 20mg Take 1 tablet by mouth 2 (two) times daily. [facility] azithromyci n 250 mg tablet 2020-09 1-16 00:00: 00 03-24 00:00 :00 No [id number] 250mg Take 1 tablet by mouth daily. [facility] cefUROXime 500 mg tablet 6-08 00:00: 00 06-09 00:00 :00 No [id number] 500mg Take 1 tablet by mouth 2 (two) times daily. [facility] hydrocodone -chlorpheni ramine (TUSSIONEX PENNKINETIC ER) 10-8 mg/5 mL suspension -09 00:00: 00 06-09 00:00 :00 No [id number] 5mL Take 5 mL by mouth every 12 (twelve) hours as needed for Cough. [facility] FLUoxetine (PROZAC) 20 mg capsule 3-12 00:00: 00 12-13 00:00 :00 No 20mg Take 1 capsule by mouth daily. [facility] Immunizations Ordered Immunization Name Filled Immunization Name Date Status Comments Source Influenza Virus Vaccine Quad IM, Preserv and ABX Free 6 MO-64 YRS 2022-07-05 00:00:00 Completed [facility] Influenza Virus Vaccine Quad IM, Preserv and ABX Free 6 MO-64 YRS 2022-07-05 00:00:00 Completed [facility] Influenza Virus Vaccine Quad IM, Preserv and ABX Free 6 MO-64 YRS 2022-07-05 00:00:00 Completed [facility] Influenza Virus Vaccine Quad IM, Preserv and ABX Free 6 MO-64 YRS 2022-07-05 00:00:00 Completed [facility] Influenza Virus Vaccine Quad IM, Preserv and ABX Free 6 MO-64 YRS 2022-07-05 00:00:00 Completed [facility] Influenza Virus Vaccine Quad IM, Preserv and ABX Free 6 MO-64 2022-07-05 00:00:00 Completed [facility] Influenza Virus Vaccine Quad IM, Preserv and ABX Free 6 MO-64 YRS 2022-07-05 00:00:00 Completed [facility] Influenza Virus Vaccine Quad IM, Preserv and ABX Free 6 MO-64 2022-07-05 00:00:00 Completed [facility] Influenza Virus Vaccine Quad IM, Preserv and ABX Free 6 MO-64 2022-07-05 00:00:00 Completed [facility] Influenza Virus Vaccine Quad IM, Preserv and ABX Free 6 MO-64 2022-07-05 00:00:00 Completed [facility] Influenza Virus Vaccine Quad IM, Preserv and ABX Free 6 MO-64 YRS 2022-07-05 00:00:00 Completed [facility] Influenza Virus Vaccine Quad IM, Preserv and ABX Free 6 MO-64 2022-07-05 00:00:00 Completed [facility] Influenza Virus Vaccine Quad IM, Preserv and ABX Free 6 MO-64 YRS (FLUCELVAX) 2022-07-05 00:00:00 Completed [facility] Influenza Virus Vaccine Quad IM, Preserv and ABX Free 6 MO-64 YRS 2022-07-05 00:00:00 Completed [facility] Influenza Virus Vaccine Quad IM, Preserv and ABX Free 6 MO-64 2022-07-05 00:00:00 Completed [facility] Influenza Virus Vaccine Quad IM, Preserv and ABX Free 6 MO-64 YRS 2022-07-05 00:00:00 Completed [facility] Influenza Virus Vaccine Quad IM, Preserv and ABX Free 6 MO-64 YRS 2022-07-05 00:00:00 Completed [facility] Influenza Virus Vaccine Quad IM, Preserv and ABX Free 6 MO-64 YRS 2022-07-05 00:00:00 Completed [facility] Influenza Virus Vaccine Quad IM, Preserv and ABX Free 6 MO-64 YRS 2022-07-05 00:00:00 Completed [facility] Influenza Virus Vaccine Quad IM, Preserv and ABX Free 6 MO-64 YRS 2022-07-05 00:00:00 Completed [facility] Influenza Virus Vaccine Quad IM, Preserv and ABX Free 6 MO-64 YRS 2022-07-05 00:00:00 Completed [facility] Influenza Virus Vaccine Quad IM, Preserv and ABX Free 6 MO-64 2022-07-05 00:00:00 Completed [facility] Influenza Virus Vaccine Quad .5 mL IM 6+ MO 2020-08-17 00:00:00 Completed [facility] Influenza Virus Vaccine Quad .5 mL IM 6+ MO 2020-08-17 00:00:00 Completed [facility] Influenza Virus Vaccine Quad .5 mL IM 6+ MO 2020-08-17 00:00:00 Completed [facility] Influenza Virus Vaccine Quad .5 mL IM 6+ MO 2020-08-17 00:00:00 Completed [facility] Influenza Virus Vaccine Quad .5 mL IM 6+ MO 2020-08-17 00:00:00 Completed [facility] Influenza Virus Vaccine Quad .5 mL IM 6+ MO 2020-08-17 00:00:00 Completed [facility] Influenza Virus Vaccine Quad .5 mL IM 6+ MO 2020-08-17 00:00:00 Completed [facility] Influenza Virus Vaccine Quad .5 mL IM 6+ MO 2020-08-17 00:00:00 Completed [facility] Influenza Virus Vaccine Quad .5 mL IM 6+ MO 2020-08-17 00:00:00 Completed [facility] Influenza Virus Vaccine Quad .5 mL IM 6+ MO 2020-08-17 00:00:00 Completed [facility] Influenza Virus Vaccine Quad .5 mL IM 6+ MO 2020-08-17 00:00:00 Completed [facility] Influenza Virus Vaccine Quad .5 mL IM 6+ MO 2020-08-17 00:00:00 Completed [facility] Influenza Virus Vaccine Quad .5 mL IM 6+ MO (FLUZONE/FLULAVAL/FL UARIX) 2020-08-17 00:00:00 Completed Influenza Virus Vaccine Quad .5 mL IM 6+ MO 2020-08-17 00:00:00 Completed [facility] Influenza Virus Vaccine Quad .5 mL IM 6+ MO 2020-08-17 00:00:00 Completed [facility] Influenza Virus Vaccine Quad .5 mL IM 6+ MO 2020-08-17 00:00:00 Completed [facility] Influenza Virus Vaccine Quad .5 mL IM 6+ MO 2020-08-17 00:00:00 Completed [facility] Influenza Virus Vaccine Quad .5 mL IM 6+ MO 2020-08-17 00:00:00 Completed [facility] Influenza Virus Vaccine Quad .5 mL IM 6+ MO 2020-08-17 00:00:00 Completed [facility] Influenza Virus Vaccine Quad .5 mL IM 6+ MO 2020-08-17 00:00:00 Completed [facility] Influenza Virus Vaccine Quad .5 mL IM 6+ MO 2020-08-17 00:00:00 Completed [facility] Influenza Virus Vaccine Quad .5 mL IM 6+ MO 2020-08-17 00:00:00 Completed [facility] Influenza Virus Vaccine Quad .5 mL IM 6+ MO 2020-08-17 00:00:00 Completed [facility] Influenza Virus Vaccine Quad .5 mL IM 6+ MO 2020-08-17 00:00:00 Completed [facility] Influenza Virus Vaccine Quad .5 mL IM 6+ MO 2020-08-17 00:00:00 Completed [facility] Influenza Virus Vaccine Quad .5 mL IM 6+ MO 2020-08-17 00:00:00 Completed [facility] Influenza Virus Vaccine Quad .5 mL IM 6+ MO 2020-08-17 00:00:00 Completed [facility] Influenza Virus Vaccine Quad .5 mL IM 6+ MO 2020-08-17 00:00:00 Completed [facility] Influenza Virus Vaccine Quad .5 mL IM 6+ MO 2020-08-17 00:00:00 Completed [facility] Influenza Virus Vaccine Quad .5 mL IM 6+ MO 2020-08-17 00:00:00 Completed [facility] Influenza Virus Vaccine Quad .5 mL IM 6+ MO 2020-08-17 00:00:00 Completed [facility] Influenza Virus Vaccine Quad .5 mL IM 6+ MO 2020-08-17 00:00:00 Completed [facility] Influenza Virus Vaccine Quad .5 mL IM 6+ MO 2020-08-17 00:00:00 Completed [facility] Influenza Virus Vaccine Quad .5 mL IM 6+ MO 2020-08-17 00:00:00 Completed [facility] HEP B, Adult Dosage 2018-03-29 00:00:00 Completed [facility] HEP B, Adult Dosage 2018-03-29 00:00:00 Completed [facility] HEP B, Adult Dosage 2018-03-29 00:00:00 Completed [facility] HEP B, Adult Dosage 2018-03-29 00:00:00 Completed [facility] HEP B, Adult Dosage 2018-03-29 00:00:00 Completed [facility] HEP B, Adult Dosage 2018-03-29 00:00:00 Completed [facility] HEP B, Adult Dosage 2018-03-29 00:00:00 Completed [facility] HEP B, Adult Dosage 2018-03-29 00:00:00 Completed [facility] HEP B, Adult Dosage 2018-03-29 00:00:00 Completed [facility] HEP B, Adult Dosage 2018-03-29 00:00:00 Completed [facility] HEP B, Adult Dosage 2018-03-29 00:00:00 Completed [facility] HEP B, Adult Dosage 2018-03-29 00:00:00 Completed [facility] HEP B, Adult Dosage 2018-03-29 00:00:00 Completed [facility] HEP B, Adult Dosage 2018-03-29 00:00:00 Completed [facility] HEP B, Adult Dosage 2018-03-29 00:00:00 Completed [facility] HEP B, Adult Dosage 2018-03-29 00:00:00 Completed [facility] HEP B, Adult Dosage 2018-03-29 00:00:00 Completed [facility] HEP B, Adult Dosage 2018-03-29 00:00:00 Completed [facility] HEP B, Adult Dosage 2018-03-29 00:00:00 Completed [facility] HEP B, Adult Dosage 2018-03-29 00:00:00 Completed [facility] HEP B, Adult Dosage 2018-03-29 00:00:00 Completed [facility] HEP B, Adult Dosage 2018-03-29 00:00:00 Completed [facility] HEP B, Adult Dosage 2018-03-29 00:00:00 Completed [facility] HEP B, Adult Dosage 2018-03-29 00:00:00 Completed [facility] HEP B, Adult Dosage 2018-03-29 00:00:00 Completed [facility] HEP B, Adult Dosage 2018-03-29 00:00:00 Completed [facility] HEP B, Adult Dosage 2018-03-29 00:00:00 Completed [facility] HEP B, Adult Dosage 2018-03-29 00:00:00 Completed [facility] HEP B, Adult Dosage 2018-03-29 00:00:00 Completed [facility] HEP B, Adult Dosage 2018-03-29 00:00:00 Completed [facility] HEP B, Adult Dosage 2018-03-29 00:00:00 Completed [facility] HEP B, Adult Dosage 2018-03-29 00:00:00 Completed [facility] HEP B, Adult Dosage 2018-03-29 00:00:00 Completed [facility] HEP B, Adult Dosage 2018-03-29 00:00:00 Completed [facility] TDAP 2018-02-19 00:00:00 Completed [facility] MMR Booster 2018-02-19 00:00:00 Completed [facility] HEP B, Adult Dosage 2018-02-19 00:00:00 Completed [facility] Meningococcal Polysaccharide (groups A, C, Y and W-135) conjugate vaccine (MCV4P) 2018-02-19 00:00:00 Completed [facility] PPD (TB) 2018-02-19 00:00:00 Completed [facility] TDAP 2018-02-19 00:00:00 Completed [facility] MMR Booster 2018-02-19 00:00:00 Completed [facility] HEP B, Adult Dosage 2018-02-19 00:00:00 Completed [facility] Meningococcal Polysaccharide (groups A, C, Y and W-135) conjugate vaccine (MCV4P) 2018-02-19 00:00:00 Completed [facility] PPD (TB) 2018-02-19 00:00:00 Completed [facility] TDAP 2018-02-19 00:00:00 Completed [facility] MMR Booster 2018-02-19 00:00:00 Completed [facility] HEP B, Adult Dosage 2018-02-19 00:00:00 Completed [facility] Meningococcal Polysaccharide (groups A, C, Y and W-135) conjugate vaccine (MCV4P) 2018-02-19 00:00:00 Completed [facility] PPD (TB) 2018-02-19 00:00:00 Completed [facility] TDAP 2018-02-19 00:00:00 Completed [facility] MMR Booster 2018-02-19 00:00:00 Completed [facility] HEP B, Adult Dosage 2018-02-19 00:00:00 Completed [facility] Meningococcal Polysaccharide (groups A, C, Y and W-135) conjugate vaccine (MCV4P) 2018-02-19 00:00:00 Completed [facility] PPD (TB) 2018-02-19 00:00:00 Completed [facility] TDAP 2018-02-19 00:00:00 Completed [facility] MMR Booster 2018-02-19 00:00:00 Completed [facility] HEP B, Adult Dosage 2018-02-19 00:00:00 Completed [facility] Meningococcal Polysaccharide (groups A, C, Y and W-135) conjugate vaccine (MCV4P) 2018-02-19 00:00:00 Completed [facility] PPD (TB) 2018-02-19 00:00:00 Completed [facility] TDAP 2018-02-19 00:00:00 Completed [facility] MMR Booster 2018-02-19 00:00:00 Completed [facility] HEP B, Adult Dosage 2018-02-19 00:00:00 Completed [facility] Meningococcal Polysaccharide (groups A, C, Y and W-135) conjugate vaccine (MCV4P) 2018-02-19 00:00:00 Completed [facility] PPD (TB) 2018-02-19 00:00:00 Completed [facility] TDAP 2018-02-19 00:00:00 Completed [facility] MMR Booster 2018-02-19 00:00:00 Completed [facility] HEP B, Adult Dosage 2018-02-19 00:00:00 Completed [facility] Meningococcal Polysaccharide (groups A, C, Y and W-135) conjugate vaccine (MCV4P) 2018-02-19 00:00:00 Completed [facility] PPD (TB) 2018-02-19 00:00:00 Completed [facility] TDAP 2018-02-19 00:00:00 Completed [facility] MMR Booster 2018-02-19 00:00:00 Completed [facility] HEP B, Adult Dosage 2018-02-19 00:00:00 Completed [facility] Meningococcal Polysaccharide (groups A, C, Y and W-135) conjugate vaccine (MCV4P) 2018-02-19 00:00:00 Completed [facility] PPD (TB) 2018-02-19 00:00:00 Completed [facility] TDAP 2018-02-19 00:00:00 Completed [facility] MMR Booster 2018-02-19 00:00:00 Completed [facility] HEP B, Adult Dosage 2018-02-19 00:00:00 Completed [facility] Meningococcal Polysaccharide (groups A, C, Y and W-135) conjugate vaccine (MCV4P) 2018-02-19 00:00:00 Completed [facility] PPD (TB) 2018-02-19 00:00:00 Completed [facility] TDAP 2018-02-19 00:00:00 Completed [facility] MMR Booster 2018-02-19 00:00:00 Completed [facility] HEP B, Adult Dosage 2018-02-19 00:00:00 Completed [facility] Meningococcal Polysaccharide (groups A, C, Y and W-135) conjugate vaccine (MCV4P) 2018-02-19 00:00:00 Completed [facility] PPD (TB) 2018-02-19 00:00:00 Completed [facility] TDAP 2018-02-19 00:00:00 Completed [facility] MMR Booster 2018-02-19 00:00:00 Completed [facility] HEP B, Adult Dosage 2018-02-19 00:00:00 Completed [facility] Meningococcal Polysaccharide (groups A, C, Y and W-135) conjugate vaccine (MCV4P) 2018-02-19 00:00:00 Completed [facility] PPD (TB) 2018-02-19 00:00:00 Completed [facility] TDAP 2018-02-19 00:00:00 Completed [facility] MMR Booster 2018-02-19 00:00:00 Completed [facility] HEP B, Adult Dosage 2018-02-19 00:00:00 Completed [facility] Meningococcal Polysaccharide (groups A, C, Y and W-135) conjugate vaccine (MCV4P) 2018-02-19 00:00:00 Completed [facility] PPD (TB) 2018-02-19 00:00:00 Completed [facility] TDAP 2018-02-19 00:00:00 Completed [facility] MMR Booster 2018-02-19 00:00:00 Completed HEP B, Adult Dosage 2018-02-19 00:00:00 Completed Meningococcal Polysaccharide (groups A, C, Y and W-135) conjugate vaccine (MCV4P) 2018-02-19 00:00:00 Completed PPD (TB) 2018-02-19 00:00:00 Completed TDAP 2018-02-19 00:00:00 Completed [facility] MMR Booster 2018-02-19 00:00:00 Completed [facility] HEP B, Adult Dosage 2018-02-19 00:00:00 Completed [facility] Meningococcal Polysaccharide (groups A, C, Y and W-135) conjugate vaccine (MCV4P) 2018-02-19 00:00:00 Completed [facility] PPD (TB) 2018-02-19 00:00:00 Completed [facility] TDAP 2018-02-19 00:00:00 Completed [facility] MMR Booster 2018-02-19 00:00:00 Completed [facility] HEP B, Adult Dosage 2018-02-19 00:00:00 Completed [facility] Meningococcal Polysaccharide (groups A, C, Y and W-135) conjugate vaccine (MCV4P) 2018-02-19 00:00:00 Completed [facility] PPD (TB) 2018-02-19 00:00:00 Completed [facility] TDAP 2018-02-19 00:00:00 Completed [facility] MMR Booster 2018-02-19 00:00:00 Completed [facility] HEP B, Adult Dosage 2018-02-19 00:00:00 Completed [facility] Meningococcal Polysaccharide (groups A, C, Y and W-135) conjugate vaccine (MCV4P) 2018-02-19 00:00:00 Completed [facility] PPD (TB) 2018-02-19 00:00:00 Completed [facility] TDAP 2018-02-19 00:00:00 Completed [facility] MMR Booster 2018-02-19 00:00:00 Completed [facility] HEP B, Adult Dosage 2018-02-19 00:00:00 Completed [facility] Meningococcal Polysaccharide (groups A, C, Y and W-135) conjugate vaccine (MCV4P) 2018-02-19 00:00:00 Completed [facility] PPD (TB) 2018-02-19 00:00:00 Completed [facility] TDAP 2018-02-19 00:00:00 Completed [facility] MMR Booster 2018-02-19 00:00:00 Completed [facility] HEP B, Adult Dosage 2018-02-19 00:00:00 Completed [facility] Meningococcal Polysaccharide (groups A, C, Y and W-135) conjugate vaccine (MCV4P) 2018-02-19 00:00:00 Completed [facility] PPD (TB) 2018-02-19 00:00:00 Completed [facility] TDAP 2018-02-19 00:00:00 Completed [facility] MMR Booster 2018-02-19 00:00:00 Completed [facility] HEP B, Adult Dosage 2018-02-19 00:00:00 Completed [facility] Meningococcal Polysaccharide (groups A, C, Y and W-135) conjugate vaccine (MCV4P) 2018-02-19 00:00:00 Completed [facility] PPD (TB) 2018-02-19 00:00:00 Completed [facility] TDAP 2018-02-19 00:00:00 Completed [facility] MMR Booster 2018-02-19 00:00:00 Completed [facility] HEP B, Adult Dosage 2018-02-19 00:00:00 Completed [facility] Meningococcal Polysaccharide (groups A, C, Y and W-135) conjugate vaccine (MCV4P) 2018-02-19 00:00:00 Completed [facility] PPD (TB) 2018-02-19 00:00:00 Completed [facility] TDAP 2018-02-19 00:00:00 Completed [facility] MMR Booster 2018-02-19 00:00:00 Completed [facility] HEP B, Adult Dosage 2018-02-19 00:00:00 Completed [facility] Meningococcal Polysaccharide (groups A, C, Y and W-135) conjugate vaccine (MCV4P) 2018-02-19 00:00:00 Completed [facility] PPD (TB) 2018-02-19 00:00:00 Completed [facility] TDAP 2018-02-19 00:00:00 Completed [facility] MMR Booster 2018-02-19 00:00:00 Completed [facility] HEP B, Adult Dosage 2018-02-19 00:00:00 Completed [facility] Meningococcal Polysaccharide (groups A, C, Y and W-135) conjugate vaccine (MCV4P) 2018-02-19 00:00:00 Completed [facility] PPD (TB) 2018-02-19 00:00:00 Completed [facility] TDAP 2018-02-19 00:00:00 Completed [facility] MMR Booster 2018-02-19 00:00:00 Completed [facility] HEP B, Adult Dosage 2018-02-19 00:00:00 Completed [facility] Meningococcal Polysaccharide (groups A, C, Y and W-135) conjugate vaccine (MCV4P) 2018-02-19 00:00:00 Completed [facility] PPD (TB) 2018-02-19 00:00:00 Completed [facility] TDAP 2018-02-19 00:00:00 Completed [facility] MMR Booster 2018-02-19 00:00:00 Completed [facility] HEP B, Adult Dosage 2018-02-19 00:00:00 Completed [facility] Meningococcal Polysaccharide (groups A, C, Y and W-135) conjugate vaccine (MCV4P) 2018-02-19 00:00:00 Completed [facility] PPD (TB) 2018-02-19 00:00:00 Completed [facility] TDAP 2018-02-19 00:00:00 Completed [facility] MMR Booster 2018-02-19 00:00:00 Completed [facility] HEP B, Adult Dosage 2018-02-19 00:00:00 Completed [facility] Meningococcal Polysaccharide (groups A, C, Y and W-135) conjugate vaccine (MCV4P) 2018-02-19 00:00:00 Completed [facility] PPD (TB) 2018-02-19 00:00:00 Completed [facility] TDAP 2018-02-19 00:00:00 Completed [facility] MMR Booster 2018-02-19 00:00:00 Completed [facility] HEP B, Adult Dosage 2018-02-19 00:00:00 Completed [facility] Meningococcal Polysaccharide (groups A, C, Y and W-135) conjugate vaccine (MCV4P) 2018-02-19 00:00:00 Completed [facility] PPD (TB) 2018-02-19 00:00:00 Completed [facility] TDAP 2018-02-19 00:00:00 Completed [facility] MMR Booster 2018-02-19 00:00:00 Completed [facility] HEP B, Adult Dosage 2018-02-19 00:00:00 Completed [facility] Meningococcal Polysaccharide (groups A, C, Y and W-135) conjugate vaccine (MCV4P) 2018-02-19 00:00:00 Completed [facility] PPD (TB) 2018-02-19 00:00:00 Completed [facility] TDAP 2018-02-19 00:00:00 Completed [facility] MMR Booster 2018-02-19 00:00:00 Completed [facility] HEP B, Adult Dosage 2018-02-19 00:00:00 Completed [facility] Meningococcal Polysaccharide (groups A, C, Y and W-135) conjugate vaccine (MCV4P) 2018-02-19 00:00:00 Completed [facility] PPD (TB) 2018-02-19 00:00:00 Completed [facility] TDAP 2018-02-19 00:00:00 Completed [facility] MMR Booster 2018-02-19 00:00:00 Completed [facility] HEP B, Adult Dosage 2018-02-19 00:00:00 Completed [facility] Meningococcal Polysaccharide (groups A, C, Y and W-135) conjugate vaccine (MCV4P) 2018-02-19 00:00:00 Completed [facility] PPD (TB) 2018-02-19 00:00:00 Completed [facility] TDAP 2018-02-19 00:00:00 Completed [facility] MMR Booster 2018-02-19 00:00:00 Completed [facility] HEP B, Adult Dosage 2018-02-19 00:00:00 Completed [facility] Meningococcal Polysaccharide (groups A, C, Y and W-135) conjugate vaccine (MCV4P) 2018-02-19 00:00:00 Completed [facility] PPD (TB) 2018-02-19 00:00:00 Completed [facility] TDAP 2018-02-19 00:00:00 Completed [facility] MMR Booster 2018-02-19 00:00:00 Completed [facility] HEP B, Adult Dosage 2018-02-19 00:00:00 Completed [facility] Meningococcal Polysaccharide (groups A, C, Y and W-135) conjugate vaccine (MCV4P) 2018-02-19 00:00:00 Completed [facility] PPD (TB) 2018-02-19 00:00:00 Completed [facility] TDAP 2018-02-19 00:00:00 Completed [facility] MMR Booster 2018-02-19 00:00:00 Completed [facility] HEP B, Adult Dosage 2018-02-19 00:00:00 Completed [facility] Meningococcal Polysaccharide (groups A, C, Y and W-135) conjugate vaccine (MCV4P) 2018-02-19 00:00:00 Completed [facility] PPD (TB) 2018-02-19 00:00:00 Completed [facility] TDAP 2018-02-19 00:00:00 Completed [facility] MMR Booster 2018-02-19 00:00:00 Completed [facility] HEP B, Adult Dosage 2018-02-19 00:00:00 Completed [facility] Meningococcal Polysaccharide (groups A, C, Y and W-135) conjugate vaccine (MCV4P) 2018-02-19 00:00:00 Completed [facility] PPD (TB) 2018-02-19 00:00:00 Completed [facility] TDAP 2018-02-19 00:00:00 Completed [facility] MMR Booster 2018-02-19 00:00:00 Completed [facility] HEP B, Adult Dosage 2018-02-19 00:00:00 Completed [facility] Meningococcal Polysaccharide (groups A, C, Y and W-135) conjugate vaccine (MCV4P) 2018-02-19 00:00:00 Completed [facility] PPD (TB) 2018-02-19 00:00:00 Completed [facility] TDAP Unknown Completed [facility] MMR Booster Unknown Completed [facility] HEP B, Adult Dosage Unknown Completed [facility] Meningococcal Polysaccharide (groups A, C, Y and W-135) conjugate vaccine (MCV4P) Unknown Completed [facility] PPD (TB) Unknown Completed [facility] Influenza Virus Vaccine Quad .5 mL IM 6+ MO (FLUZONE/FLULAVAL/FL UARIX) Unknown Completed [facility] Influenza Virus Vaccine Quad IM, Preserv and ABX Free 6 MO-64 YRS (FLUCELVAX) Unknown Completed [facility] TDAP Unknown Completed [facility] MMR Booster Unknown Completed [facility] HEP B, Adult Dosage Unknown Completed [facility] Meningococcal Polysaccharide (groups A, C, Y and W-135) conjugate vaccine (MCV4P) Unknown Completed [facility] PPD (TB) Unknown Completed [facility] Influenza Virus Vaccine Quad .5 mL IM 6+ MO (FLUZONE/FLULAVAL/FL UARIX) Unknown Completed [facility] Influenza Virus Vaccine Quad IM, Preserv and ABX Free 6 MO-64 YRS (FLUCELVAX) Unknown Completed [facility] TDAP Unknown Completed [facility] MMR Booster Unknown Completed [facility] HEP B, Adult Dosage Unknown Completed [facility] Meningococcal Polysaccharide (groups A, C, Y and W-135) conjugate vaccine (MCV4P) Unknown Completed [facility] PPD (TB) Unknown Completed [facility] Influenza Virus Vaccine Quad .5 mL IM 6+ MO (FLUZONE/FLULAVAL/FL UARIX) Unknown Completed [facility] Influenza Virus Vaccine Quad IM, Preserv and ABX Free 6 MO-64 YRS (FLUCELVAX) Unknown Completed [facility] TDAP Unknown Completed [facility] MMR Booster Unknown Completed [facility] HEP B, Adult Dosage Unknown Completed [facility] Meningococcal Polysaccharide (groups A, C, Y and W-135) conjugate vaccine (MCV4P) Unknown Completed [facility] PPD (TB) Unknown Completed [facility] Influenza Virus Vaccine Quad .5 mL IM 6+ MO (FLUZONE/FLULAVAL/FL UARIX) Unknown Completed [facility] Influenza Virus Vaccine Quad IM, Preserv and ABX Free 6 MO-64 YRS (FLUCELVAX) Unknown Completed [facility] TDAP Unknown Completed [facility] MMR Booster Unknown Completed [facility] HEP B, Adult Dosage Unknown Completed [facility] Meningococcal Polysaccharide (groups A, C, Y and W-135) conjugate vaccine (MCV4P) Unknown Completed [facility] PPD (TB) Unknown Completed [facility] Influenza Virus Vaccine Quad .5 mL IM 6+ MO (FLUZONE/FLULAVAL/FL UARIX) Unknown Completed [facility] Influenza Virus Vaccine Quad IM, Preserv and ABX Free 6 MO-64 YRS (FLUCELVAX) Unknown Completed [facility] TDAP Unknown Completed [facility] MMR Booster Unknown Completed [facility] HEP B, Adult Dosage Unknown Completed [facility] Meningococcal Polysaccharide (groups A, C, Y and W-135) conjugate vaccine (MCV4P) Unknown Completed [facility] PPD (TB) Unknown Completed [facility] Influenza Virus Vaccine Quad .5 mL IM 6+ MO (FLUZONE/FLULAVAL/FL UARIX) Unknown Completed [facility] Influenza Virus Vaccine Quad IM, Preserv and ABX Free 6 MO-64 YRS (FLUCELVAX) Unknown Completed [facility] TDAP Unknown Completed [facility] MMR Booster Unknown Completed [facility] HEP B, Adult Dosage Unknown Completed [facility] Meningococcal Polysaccharide (groups A, C, Y and W-135) conjugate vaccine (MCV4P) Unknown Completed [facility] PPD (TB) Unknown Completed [facility] Influenza Virus Vaccine Quad .5 mL IM 6+ MO (FLUZONE/FLULAVAL/FL UARIX) Unknown Completed [facility] Influenza Virus Vaccine Quad IM, Preserv and ABX Free 6 MO-64 YRS (FLUCELVAX) Unknown Completed [facility] TDAP Unknown Completed [facility] MMR Booster Unknown Completed [facility] HEP B, Adult Dosage Unknown Completed [facility] Meningococcal Polysaccharide (groups A, C, Y and W-135) conjugate vaccine (MCV4P) Unknown Completed [facility] PPD (TB) Unknown Completed [facility] Influenza Virus Vaccine Quad .5 mL IM 6+ MO (FLUZONE/FLULAVAL/FL UARIX) Unknown Completed [facility] Influenza Virus Vaccine Quad IM, Preserv and ABX Free 6 MO-64 YRS (FLUCELVAX) Unknown Completed [facility] TDAP Unknown Completed [facility] MMR Booster Unknown Completed [facility] HEP B, Adult Dosage Unknown Completed [facility] Meningococcal Polysaccharide (groups A, C, Y and W-135) conjugate vaccine (MCV4P) Unknown Completed [facility] PPD (TB) Unknown Completed [facility] Influenza Virus Vaccine Quad .5 mL IM 6+ MO (FLUZONE/FLULAVAL/FL UARIX) Unknown Completed [facility] Influenza Virus Vaccine Quad IM, Preserv and ABX Free 6 MO-64 YRS (FLUCELVAX) Unknown Completed [facility] TDAP Unknown Completed [facility] MMR Booster Unknown Completed [facility] HEP B, Adult Dosage Unknown Completed [facility] Meningococcal Polysaccharide (groups A, C, Y and W-135) conjugate vaccine (MCV4P) Unknown Completed [facility] PPD (TB) Unknown Completed [facility] Influenza Virus Vaccine Quad .5 mL IM 6+ MO (FLUZONE/FLULAVAL/FL UARIX) Unknown Completed [facility] Influenza Virus Vaccine Quad IM, Preserv and ABX Free 6 MO-64 YRS (FLUCELVAX) Unknown Completed [facility] TDAP Unknown Completed [facility] MMR Booster Unknown Completed [facility] HEP B, Adult Dosage Unknown Completed [facility] Meningococcal Polysaccharide (groups A, C, Y and W-135) conjugate vaccine (MCV4P) Unknown Completed [facility] PPD (TB) Unknown Completed [facility] Influenza Virus Vaccine Quad .5 mL IM 6+ MO (FLUZONE/FLULAVAL/FL UARIX) Unknown Completed [facility] Influenza Virus Vaccine Quad IM, Preserv and ABX Free 6 MO-64 YRS (FLUCELVAX) Unknown Completed [facility] TDAP Unknown Completed [facility] MMR Booster Unknown Completed [facility] HEP B, Adult Dosage Unknown Completed [facility] Meningococcal Polysaccharide (groups A, C, Y and W-135) conjugate vaccine (MCV4P) Unknown Completed [facility] PPD (TB) Unknown Completed [facility] Influenza Virus Vaccine Quad .5 mL IM 6+ MO (FLUZONE/FLULAVAL/FL UARIX) Unknown Completed [facility] Influenza Virus Vaccine Quad IM, Preserv and ABX Free 6 MO-64 YRS (FLUCELVAX) Unknown Completed [facility] TDAP Unknown Completed [facility] MMR Booster Unknown Completed [facility] HEP B, Adult Dosage Unknown Completed [facility] Meningococcal Polysaccharide (groups A, C, Y and W-135) conjugate vaccine (MCV4P) Unknown Completed [facility] PPD (TB) Unknown Completed [facility] Influenza Virus Vaccine Quad .5 mL IM 6+ MO (FLUZONE/FLULAVAL/FL UARIX) Unknown Completed [facility] Influenza Virus Vaccine Quad IM, Preserv and ABX Free 6 MO-64 YRS (FLUCELVAX) Unknown Completed [facility] Vital Signs Vital Name Observation Time Observation Value Comments S ource Systolic blood pressure 2024-02-12 14:00:00 124 mm[Hg] [facility] Diastolic blood pressure 2024-02-12 14:00:00 74 mm[Hg] [facility] Heart rate 2024-02-12 14:00:00 70 /min [facility] Body temperature 2024-02-12 14:00:00 36.67 [facility] Respiratory rate 2024-02-12 14:00:00 18 /min [facility] Oxygen saturation in Arterial blood by Pulse oximetry 2024-02-12 14:00:00 100 /min [facility] Body height 2024-02-12 12:25:00 172.7 cm [facility] Body weight 2024-02-12 12:25:00 70.308 kg [facility] BMI 2024-02-12 12:25:00 23.57 kg/m2 [facility] Systolic blood pressure 2024-01-29 12:13:00 104 mm[Hg] [facility] Diastolic blood pressure 2024-01-29 12:13:00 69 mm[Hg] [facility] Heart rate 2024-01-29 12:13:00 84 /min [facility] Body height 2024-01-29 12:13:00 172.7 cm [facility] Body weight 2024-01-29 12:13:00 70.943 kg [facility] BMI 2024-01-29 12:13:00 23.78 kg/m2 [facility] Oxygen saturation in Arterial blood by Pulse oximetry 2024-01-29 12:13:00 98 /min [facility] Systolic blood pressure 2023-07-12 13:39:00 102 mm[Hg] [facility] Diastolic blood pressure 2023-07-12 13:39:00 66 mm[Hg] [facility] Heart rate 2023-07-12 13:39:00 77 /min [facility] Respiratory rate 2023-07-12 13:39:00 18 /min [facility] Body height 2023-07-12 13:39:00 [facility] 2023-07-12 13:39:00 68.266 kg Univ [facility] BMI 2023-07-12 13:39:00 22.88 kg/m2 [facility] Oxygen saturation in Arterial blood by Pulse oximetry 2023-07-12 13:39:00 100 /min [facility] Systolic blood pressure 2022-12-22 12:06:00 121 mm[Hg] [facility] Diastolic blood pressure 2022-12-22 12:06:00 71 mm[Hg] [facility] Heart rate 2022-12-22 12:06:00 77 /min [facility] Body temperature 2022-12-22 12:06:00 36.5 [facility] Body height 2022-12-22 12:06:00 172.7 cm [facility] Body weight 2022-12-22 12:06:00 68.584 [facility] BMI 2022-12-22 12:06:00 22.99 kg/m2 [facility] Oxygen saturation in Arterial blood by Pulse oximetry 2022-12-22 12:06:00 98 /min [facility] Systolic blood pressure 2022-12-13 12:40:00 116 mm[Hg] [facility] Diastolic blood pressure 2022-12-13 12:40:00 69 mm[Hg] [facility] Heart rate 2022-12-13 12:40:00 79 /min [facility] Body height 2022-12-13 12:40:00 172.7 cm Univ [facility] 2022-12-13 12:40:00 68.992 kg Univ [facility] BMI 2022-12-13 12:40:00 23.13 kg/m2 [facility] Oxygen saturation in Arterial blood by Pulse oximetry 2022-12-13 12:40:00 99 /min [facility] Systolic blood pressure 2022-12-08 14:12:00 133 mm[Hg] [facility] Diastolic blood pressure 2022-12-08 14:12:00 81 mm[Hg] [facility] Heart rate 2022-12-08 14:12:00 103 /min [facility] Body temperature 2022-12-08 14:12:00 36.11 [facility] Respiratory rate 2022-12-08 14:12:00 18 /min [facility] Body height 2022-12-08 14:12:00 172.7 cm [facility] Body weight 2022-12-08 14:12:00 68.72 kg [facility] BMI 2022-12-08 14:12:00 23.04 kg/m2 [facility] Systolic blood pressure 2022-07-05 16:14:00 122 mm[Hg] [facility] Diastolic blood pressure 2022-07-05 16:14:00 75 mm[Hg] [facility] Heart rate 2022-07-05 16:14:00 82 /min [facility] Respiratory rate 2022-07-05 16:14:00 19 /min [facility] Body height 2022-07-05 16:14:00 172.7 cm [facility] Body weight 2022-07-05 16:14:00 69.854 kg [facility] BMI 2022-07-05 16:14:00 23.42 kg/m2 [facility] Oxygen saturation in Arterial blood by Pulse oximetry 2022-07-05 16:14:00 92 /min [facility] Systolic blood pressure 2022-06-09 13:03:00 116 mm[Hg] [facility] Diastolic blood pressure 2022-06-09 13:03:00 66 mm[Hg] [facility] Heart rate 2022-06-09 13:03:00 73 /min [facility] Body temperature 2022-06-09 13:03:00 36.83 [facility] Body height 2022-06-09 13:03:00 172.7 cm [facility] Body weight 2022-06-09 13:03:00 70.353 kg [facility] BMI 2022-06-09 13:03:00 23.58 kg/m2 [facility] Oxygen saturation in Arterial blood by Pulse oximetry 2022-06-09 13:03:00 98 /min [facility] Systolic blood pressure 2022-03-17 12:40:00 112 mm[Hg] [facility] Diastolic blood pressure 2022-03-17 12:40:00 71 mm[Hg] [facility] Heart rate 2022-03-17 12:40:00 89 /min [facility] Body weight 2022-03-17 12:40:00 72.938 kg [facility] BMI 2022-03-17 12:40:00 24.45 kg/m2 [facility] Procedures Procedure Date / Time Performed Performing Clinician Source TEST, SERUM 2024-02-12 12:46:00 Maribel Morrow [facility] COMP. METABOLIC PANEL ([id number]) 2024-02-12 12:46:00 Brook Morrow [facility] CBC WITH DIFF 2024-02-12 12:46:00 [facility] RAP[facility]FLU[facility] A/B 2024-02-12 12:46:00 Brook Morrow [facility] COVID-19 (ID NOW RAPID TESTING) 2024-02-12 12:46:00 Brook Morrow [facility] POCT GLUCOSE (AUTOMATED) 2024-02-12 12:45:00 Brook Morrow [facility] ASSIGNMENT OF BENEFITS 2023-07-12 13:27:14 Docto r Unassigned, Hassell [facility] CREATINE KINASE 2022-12-08 15:02:00 Raúl Armando [facility] C-REACTIVE PROTEIN 2022-12-08 15:02:00 Raúl Armando [facility] C4 COMPLEMENT 2022-12-08 15:02:00 Raúl Armando [facility] THYROID STIMULATING HORMONE 2022-12-08 15:02:00 Raúl Armando [facility] COMP. METABOLIC PANEL ([id number]) 2022-12-08 15:02:00 Raúl Armando [facility] CBC WITH DIFF 2022-12-08 15:02:00 Raúl Armando [facility] HEPATITIS B SURFACE ANTIBODY 2022-12-08 15:02:00 Raúl Armando [facility] HEPATITIS B SURFACE ANTIGEN 2022-12-08 15:02:00 Raúl Armando [facility] HCV ANTIBODY 2022-12-08 15:02:00 Raúl Armando [facility] HBC ANTIBODY (IGM & IGG) 2022-12-08 15:02:00 Raúl Armando [facility] VITAMIN D, 25-OH 2022-12-08 15:02:00 Raúl Armando [facility] HIV 1/2 AG-AB WITH REFLEX 2022-12-08 15:02:00 Raúl Armando [facility] SYPHILIS IGG/IGM 2022-12-08 15:02:00 Raúl Armando [facility] PATIENT FINANCIAL POLICY 2022-12-08 13:55:40 Doctor Unassigned, Hassell [facility] FLU VACC ([id number]), 6 MO-64 YRS, .5ML, IM, QUAD (FLUCELVAX) 2022-07-05 16:18:25 Nato Duran [facility] US HEAD NECK 2022-06-27 21:28:11 Blossom Christine [facility] ASSIGNMENT OF BENEFITS 2022-06-27 20:52:28 Docto r Unassigned, Hassell [facility] CT THORAX WO CONTRAST 2022-06-14 13:45:53 Prem Christine [facility] POCT TEST 2022-06-09 00:00:00 Blossom Christine [facility] Encounters Start Date/Time End Date/Time Encounter Type Admission Type Attending Clinicians Care Facility Care Department Encounter ID Source 2024-08-23 00:00:00 2024-08-26 06:14:35 Marce Fraser [facility] 1.2.840.114 350.1.13.10 4.2.7.2.686 [id number] [facility] 2024-07-31 00:00:00 2024-07-31 18:06:23 Nurse Triage Allie Melendrez Jessica A [facility] ([facility]) 1.2.840.114 350.1.13.10 4.2.7.2.686 [id number] [facility] 2024-07-09 00:00:00 2024-07-10 07:29:08 Refill Rodrigue [facility] 1.2.840.114 350.1.13.10 4.2.7.2.686 [id number] 044 [id number] [facility] 2024-05-29 00:00:00 2024-05-30 06:32:41 Refill Rodrigue [facility] 1.2.840.114 350.1.13.10 4.2.7.2.686 [id number] [facility] 2024-04-17 00:00:00 2024-04-17 10:44:29 Abby Rodrigue [facility] 1.2.840.114 350.1.13.10 4.2.7.2.686 [id number] [facility] 2024-03-07 00:00:00 2024-03-07 08:21:28 [facility] 1.2.840.114 350.1.13.10 4.2.7.2.686 [id number] [facility] 2024-02-12 07:27:00 2024-02-12 09:36:00 Emergency X BROOK MORROW [facility] ERT [id number] [facility] 2024-02-12 07:27:00 2024-02-12 09:36:00 Emergency Brook Morrow [facility] 1.2.840.114 350.1.13.10 4.2.7.2.686 [id number] [facility] 2024-01-29 07:15:00 2024-01-29 07:30:00 [facility] 1.2840.114 350.1.13.10 4.2.7.2.686 [id number] [facility] 2024-01-29 07:15:00 2024-01-29 07:15:00 [facility] [id number] [facility] 2024-01-24 00:00:00 2024-01-25 06:37:13 Refill Rodrigue [facility] 1.2840.114 350.1.13.10 4.2.7.2.686 [id number] [facility] 2024-01-19 00:00:00 2024-01-22 06:30:27 Refill Husain [facility] 1.2840.114 350.1.13.10 4.2.7.2.686 [id number] [facility] 2023-10-26 00:00:00 2023-10-26 00:00:00 Refill Rodrigue [facility] 1.2840.114 350.1.13.10 4.2.7.2.686 [id number] [facility] 2023-08-30 00:00:00 2023-08-30 00:00:00 Refill Rodrigue [facility] 1..840.114 350.1.13.10 4.2.7.2.686 [id number] [id number] [facility] 2023-07-12 08:30:00 2023-07-12 08:45:00 [facility] 1.840.114 350.1.13.10 4.2.7.2.686 [id number] [facility] 2023-07-12 08:30:00 2023-07-12 08:30:00 [facility] [id number] [facility] 2023-07-12 00:00:00 2023-07-12 00:00:00 Orders Only Doctor Unassigned, Hassell [facility] 1.840.114 350.1.13.10 4.2.7.2.686 [id number] [facility] 2023-07-10 00:00:00 2023-07-10 00:00:00 Telephone Rodrigue [facility] 1..840.114 350.1.13.10 4.2.7.2.686 [id number] [id number] [facility] 2023-05-11 09:20:00 2023-05-11 09:20:00 Outpatient RAÚL GILBERT [facility] [id number] [facility] 2023-04-10 00:00:00 2023-04-10 00:00:00 RefLeticia Vasquez [facility] 1.2840.114 350.1.13.10 4.2.7.2.686 [id number] [facility] 2023-03-02 00:00:00 2023-03-02 00:00:00 [facility] 1.840.114 350.1.13.10 4.2.7.2.686 [id number] [facility] 2023-02-09 00:00:00 2023-02-09 00:00:00 Telephone Noah Ray [facility] AND [facility] 1.840.114 350.1.13.10 4.2.7.2.686 [id number] [facility] 2023-01-23 00:00:00 2023-01-23 00:00:00 [facility] 1.840.114 350.1.13.10 4.2.7.2.686 [id number] 044 [id number] [facility] 2023-01-13 00:00:00 2023-01-13 00:00:00 Telephone Raúl Armando [facility] 1.0.114 350.1.13.10 4.2.7.2.686 [id number] [facility] 2023-01-10 00:00:00 2023-01-10 00:00:00 Outpatient R RAÚL ARMANDO [facility] [id number] [facility] 2023-01-09 00:00:00 2023-01-09 00:00:00 Telephone Noah Ray [facility] 1.840.114 350.1.13.10 4.2.7.2.686 [id number] [facility] 2023-01-09 00:00:00 2023-01-09 00:00:00 Patient Secure Msg Doctor Unassigned, Hassell [facility] 1.840.114 350.1.13.10 4.2.7.2.686 [id number] [facility] 2022-12-22 07:00:00 2022-12-22 07:30:00 Office Visit Blossom Christine [facility] 1.2.840.114 350.1.13.10 4.2.7.2.686 [id number] [facility] 2022-12-22 07:00:00 2022-12-22 07:00:00 Outpatient R LAURIE CHRISTINELIE [facility] [id number] [facility] 2022-12-22 00:00:00 2022-12-22 00:00:00 Letter (Out) Blossom Christine [facility] 1..840.114 350.1.13.10 4.2.7.2.686 [id number] 044 [id number] [facility] 2022-12-13 07:45:00 2022-12-13 08:00:00 Office Visit Rodrigue Marce [facility] 1.2.840.114 350.1.13.10 4.2.7.2.686 [id number] [facility] 2022-12-13 07:45:00 2022-12-13 07:45:00 Outpatient R MARCE HUSAIN [facility] [id number] [facility] 2022-12-08 10:15:00 2022-12-08 10:30:00 Combiner Operator Visit Pcp-Raúl Navarro [facility] 1.2.840.114 350.1.13.10 4.2.7.2.686 [id number] [facility] 2022-12-08 09:20:00 2022-12-08 09:50:18 Outpatient R RAÚL ARMANDO [facility] [id number] [facility] 2022-12-08 09:20:00 2022-12-08 09:50:18 Office Visit Raúl Armando [facility] 1.2.840.114 350.1.13.10 4.2.7.2.686 [id number] [facility] 2022-12-08 00:00:00 2022-12-08 00:00:00 [facility] 1.2840.114 350.1.13.10 4.2.7.2.686 [id number] [id number] [facility] 2022-12-08 00:00:00 2022-12-08 00:00:00 Orders Only Doctor Unassigned, Hassell [facility] 1.2.840.114 350.1.13.10 4.2.7.2.686 [id number] [facility] 2022 00:00:00 2022 00:00:00 Telephone Rodrigue [facility] 1.2840.114 350.1.13.10 4.2.7.2.686 [id number] [facility] 2022-11-29 00:00:00 2022-11-29 00:00:00 [facility] 1.2840.114 350.1.13.10 4.2.7.2.686 [id number] [id number] [facility] 2022-09-01 00:00:00 2022-09-01 00:00:00 Refill Rodrigue [facility] 1.2840.114 350.1.13.10 4.2.7.2.686 [id number] [facility] 2022-08-23 10:30:00 2022-08-23 10:30:00 Outpatient R NATO DURAN SHIWAN [facility] [id number] [facility] 2022-08-02 09:30:00 2022-08-02 09:30:00 Outpatient R NATO DURAN SHIWAN [facility] [id number] [facility] 2022-07-29 00:00:00 2022-07-29 00:00:00 Refill Rodrigue [facility] 1.2.840.114 350.1.13.10 4.2.7.2.686 [id number] [facility] 2022-07-14 00:00:00 2022-07-14 00:00:00 Refill Rodrigue Marce [facility] 1.2.840.114 350.1.13.10 4.2.7.2.686 [id number] [facility] 2022-07-12 00:00:00 2022-07-12 00:00:00 Refill Blossom Christine [facility] 1.2.840.114 350.1.13.10 4.2.7.2.686 [id number] [facility] 2022-07-05 12:15:00 2022-07-05 12:30:00 Combiner Operator Visit Pob, Adc Lab Main Nato Duran [facility] 1.2.840.114 350.1.13.10 4.2.7.2.686 [id number] [facility] 2022-07-05 11:00:00 2022-07-05 11:46:44 Outpatient R NATO DURAN SHINHFermin [facility] [id number] [facility] 2022-07-05 11:00:00 2022-07-05 11:46:44 Office Visit Antoni Duranfermin [facility] PROFESS[facility] NAL BUILDING 1.2.840.114 350.1.13.10 4.2.7.2.686 [id number] [facility] 2022-06-27 15:52:36 2022-06-27 23:59:00 Outpatient R BLOSSOM CHRISTINE [facility] [id number] [facility] 2022-06-27 15:45:00 2022-06-27 23:59:00 Hospital Encounter Blossom Christine [facility] 1.2840.114 350.1.13.10 4.2.7.2.686 [id number] [facility] 2022-06-27 00:00:00 2022-06-27 00:00:00 Orders Only Doctor Unassigned, Hassell [facility] 1.2840.114 350.1.13.10 4.2.7.2.686 [id number] [facility] 2022-06-21 00:00:00 2022-06-21 00:00:00 Telephone Blossom Christine [facility] 1.2.840.114 350.1.13.10 4.2.7.2.686 [id number] [facility] 2022-06-14 08:16:46 2022-06-14 23:59:00 Outpatient R BLOSSOM CHRISTINE [facility] [id number] [facility] 2022-06-14 08:15:00 2022-06-14 23:59:00 Hospital Encounter Blossom Christine [facility] 1.2840.114 350.1.13.10 4.2.7.2.686 [id number] [facility] 2022-06-14 00:00:00 2022-06-14 00:00:00 Telephone Marce Husain [facility] 1..840.114 350.1.13.10 4.2.7.2.686 [id number] [id number] [facility] 2022-06-09 09:13:45 2022-06-09 23:59:00 Outpatient R MAYDA CHRISTINEE [facility] [id number] [facility] 2022-06-09 08:00:00 2022-06-09 08:48:43 [facility] 1.2.840.114 350.1.13.10 4.2.7.2.686 [id number] [facility] 2022-06-09 00:00:00 2022-06-09 00:00:00 Refill [facility]ossom Christine [facility] 1.840.114 350.1.13.10 4.2.7.2.686 [id number] [facility] 2022-06-09 00:00:00 2022-06-09 00:00:00 Telephone Blossom Christine [facility] 1.840.114 350.1.13.10 4.2.7.2.686 [id number] [id number] [facility] 2022-06-02 00:00:00 2022-06-02 00:00:00 Refill Marce Husain [facility] 1.2.840.114 350.1.13.10 4.2.7.2.686 [id number] [facility] 2022-04-22 00:00:00 2022-04-22 00:00:00 Refill Marce Husain [facility] J[facility]ONE?[facility] 1.2840.114 350.1.13.10 4.2.7.2.686 [id number] [facility] 2022-03-23 00:00:00 2022-03-23 00:00:00 Telephone Marce Husain [facility] 1.840.114 350.1.13.10 4.2.7.2.686 [id number] [id number] [facility] 2022-03-17 07:30:00 2022-03-17 07:45:00 Office Visit Marce Hus[facility] 1.840.114 350.1.13.10 4.2.7.2.686 [id number] [facility] 2022-03-17 07:30:00 2022-03-17 07:30:00 Outpatient R HUSAIN MARCE [facility] [id number] [facility] 2022-03-17 07:30:00 2022-03-17 07:30:00 Outpatient R MARCE HUSAIN [facility] [id number] [facility] 2022-03-16 00:00:00 2022-03-16 00:00:00 [facility] 1..840.114 350.1.13.10 4.2.7.2.686 [id number] [facility] 2021-12-22 00:00:00 2021-12-22 00:00:00 Refill Marce Hus[facility] 1.840.114 350.1.13.10 4.2.7.2.686 [id number] [facility] 2021-07-27 07:28:52 2021-07-27 07:50:03 Office Visit Marce Husain [facility] 1.2.840.114 350.1.13.10 4.2.7.2.686 [id number] [facility] 2021-07-27 07:45:00 2021-07-27 07:45:00 Outpatient MARCE MUHAMMAD [facility] [id number] [facility] 2021-02-16 07:38:48 2021-02-16 07:53:48 Office Visit Marce Husain [facility] 1..840.114 350.1.13.10 4.2.7.2.686 [id number] [facility] 2021-02-16 07:30:00 2021-02-16 07:30:00 Outpatient MARCE MUHAMMAD [facility] [id number] [facility] 2020-11-16 07:42:08 2020-11-16 07:57:08 Office Visit Marce Husain [facility] 1..840.114 350.1.13.10 4.2.7.2.686 [id number] [facility] 2020-11-16 07:45:00 2020-11-16 07:45:00 Outpatient MARCE MUHAMMAD [facility] [id number] [facility] 2020-08-17 09:38:09 2020-08-17 10:03:39 Office Visit Marce Husain [facility] ..840.114 350.1.13.10 4.2.7.2.686 [id number] [facility] 2020-08-17 09:30:00 2020-08-17 09:30:00 Outpatient Velasquez MARCE HUSAIN [facility] [id number] [facility] 2020-06-04 12:44:20 2020-06-04 12:59:20 Office Visit Husain, [facility] 1.114 350.1.13.10 4.2.7.2.686 [id number] [facility] 2020-06-04 12:45:00 2020-06-04 12:45:00 Outpatient MARCE MUHAMMAD [facility] [id number] [facility] 2020-05-01 00:00:00 2020-05-01 00:00:00 Reftahira Husain Marce [facility] 1.114 350.1.13.10 4.2.7.2.686 [id number] [facility] 2020-02-26 15:47:29 2020-02-26 16:07:29 Ur[facility] 1.114 350.1.13.10 4.2.7.2.686 [id number] [facility] 2020-02-26 15:47:29 2020-02-26 16:07:29 Urgent Care Pob1, Acute Care [facility] 1.114 350.1.13.10 4.2.7.2.686 [id number] 2020-02-26 15:40:00 2020-02-26 15:40:00 Outpatient ROYA FERRELL [facility] [id number] [facility] 2020-02-25 00:00:00 2020-02-25 00:00:00 Abby Husain Marce [facility] 1.114 350.1.13.10 4.2.7.2.686 [id number] [facility] 2020-02-25 00:00:00 2020-02-25 00:00:00 Refill Rodrigue [facility] 1.2.840.114 350.1.13.10 4.2.7.2.686 [id number] 2019-12-18 00:00:00 2019-12-18 00:00:00 Refill Marce Husain [facility] 1.2.840.114 350.1.13.10 4.2.7.2.686 [id number] [facility] 2019-12-18 00:00:00 2019-12-18 00:00:00 Refill Marce Husain [facility] 1.2.840.114 350.1.13.10 4.2.7.2.686 [id number] 2019-11-18 08:04:09 2019-11-18 08:19:09 Office Visit Marce Husain [facility] 1.2.840.114 350.1.13.10 4.2.7.2.686 [id number] [facility] 2019-11-18 08:04:09 2019-11-18 08:19:09 Office Visit Marce Husain [facility] Office [facility] [id number] 350.1.13.10 4.2.7.2.686 [id number] 2019-11-18 08:00:00 2019-11-18 08:00:00 Outpatient R MARCE HUSAIN [facility] [id number] [facility] 2019-11-04 00:00:00 2019-11-04 00:00:00 Refill Marce Husain [facility] [id number] 350.1.13.10 4.2.7.2.686 [id number] [facility] 2019-05-23 14:14:38 2019-05-23 15:01:41 Office Visit Husain, [facility] Office [facility] One [id number] 350.1.13.10 4.2.7.2.686 [id number] [facility] 2019-05-23 00:00:00 2019-05-23 00:00:00 Letter (Out) [facility] [id number] 350.1.13.10 4.2.7.2.686 [id number] [facility] 2019-05-20 00:00:00 2019-05-20 00:00:00 Refill Marce Husain [facility] Office [facility] One [id number] 350.1.13.10 4.2.7.2.686 [id number] [facility] 2019-05-14 08:06:28 2019-05-14 08:22:09 Office Visit [facility] One [id number] 350.1.13.10 4.2.7.2.686 [id number] [facility] 2019-05-14 00:00:00 2019-05-14 00:00:00 Orders Only Doctor Unassigned, [place] [facility] [id number] 350.1.13.10 4.2.7.2.686 [id number] [facility] Results Test Description Test Time Test Comments Results Result Co mments Source [facility](Age 0-30days)2024-02-12 12:45:00 * Test Item Value Reference Range Interpretation Comme nts POCT Glu (age 0-30days) (darryl t code = 3343) 111 mg/dl 40-110 A Lab Interpretation (test cod e = 52479-6) Abnormal [facility] HospitalSYPHILIS [id number] 17:10:27* Test Item Value Reference Range Interpretation Comme nts Syphilis IgG/IgM (test code = 72317-5) Non-reactive Non-reactive LESVIA (test code = LESVIA) Non-reactive - No serologic evidence of T. pallidum infection. Cannot exclude incubating or early syphilis. Submit a second specimen in 2-4 weeks if syphilis is clinically suspected. Equivocal - Further testing to follow. Reactive - Further testing to follow. Lab Interpretation (test code = 26941-9) Normal [facility]TIBODY (IGM & IGG)2022-12-08 22:47:13* Test Item Value Reference Range Interpretation Comme nts HBC (test code = 2994690615) Negative HBC Semi-Quantitative (test code = 2371334462) 3.33 [facility]/2 AG-AB WITH [id number] 19:53:46* Test Item Value Reference Range Interpretation Comme nts HIV Semi-quantitative (test code = 34337-1) 0.12 Negative LESVIA (test code = LESVIA) Non-reactive for HIV-1 antigen and HIV-1/HIV-2 antibodies. ?No laboratory evidence of HIV infection. ?Repeat in 2-4 weeks if acute HIV infection is suspected. [facility]3 [id number] 19:49:44* Test Item Value Reference Range Interpretation Comme nts C3 (test code = 0819144564) 120 mg/dL 86-184 Lab Interpretation (test cod e = 29661-8) Normal [facility] Hospital[facility]4 [id number] 19:49:44* Test Item Value Reference Range Interpretation Comme nts C4 (test code = 1406243977) 18 mg/dL 20-59 L Lab Interpretation (test cod e = 82526-3) Abnormal [facility] HospitalC-REACTIVE [id number] 19:49:44* Test Item Value Reference Range Interpretation Comme nts CRP (test code = 4632390220) 0.2 mg/dL <=0.8 Lab Interpretation (test cod e = 73491-1) Normal [facility] HospitalHCV [id number] 18:40:53* Test Item Value Reference Range Interpretation Comme nts HCV Ab (test code = 95092-2) Negative HCV Semi-Quantitative (test code = 68757-1) 0.03 [facility]HEPAT[facility]IS B SURFACE [id number] 18:40:53* Test Item Value Reference Range Interpretation Comme nts HBsAB (test code = 5435837514) Positive HBsAb Semi-Quantitative (test code = 4208692536) mIU/mL LESVIA (test code = LESVIA) Interpretation: ?Hepatitis B Surface Antibody ? Negative - Patient is considered to be not immune to infection with HBV. ? ? Positive - Anti-HBs detected at greater than or equal to 12 mIU/mL. ?Patient is considered to be immune to infection with HBV. ? [facility] HospitalTHYROID STIMULATING [id number] 18:23:09 * Test Item Value Reference Range Interpretation Comme nts TSH (test code = 7543765786) 0.75 See_Comment [Automated IntervalZeroa ge] The system which generated this result transmitted reference range: 0.45 - 4.70 mIU/L. The reference range was not used to interpret this result as normal/abnormal. Lab Interpretation (test code = 07307-1) Normal [facility] HospitalHEPATITIS B SURFACE [id number] 18:23:09 * Test Item Value Reference Range Interpretation Comme nts HBsAg Semi-Quantitative (darryl t code = 5195-3) 0.06 Negative [facility] HospitalVITAMIN D, [id number] 18:10:28* Test Item Value Reference Range Interpretation Comme [facility] VIT D 25OH (test code = 30624-4) 36 ng/mL 25-80 LESVIA (test code = LESVIA) Deficiency: <20 ng/mLInsufficiency : 20-24 ng/mLOptimal: 25-80 ng/mL Lab Interpretation (test code = 42024-7) Normal [facility] HospitalCREATINE [id number] 17:49:07* Test Item Value Reference Range Interpretation Comme nts CK (test code = 4418425137) 38 U/L 33-194 Lab Interpretation (test cod e = 30820-7) Normal [facility] HospitalCOMP. METABOLIC PANEL (69358)2022-12-08 17:49:07* Test Item Value Reference Range Interpretation Comme nts NA (test code = 7302940130) 139 mmol/L 135-145 K (test code = 2828570610) 4.4 mmol/L 3.5-5.0 CL (test code = 9403054020) 104 mmol/L 98-108 CO2 TOTAL (test code = 4015512985) 26 mmol/L 23-31 AGAP (test code = 3782145333) 9 2-16 BUN (test code = 5230969437) 7 mg/dL 7-23 GLUCOSE (test code = 2487399456) 100 mg/dL 70-110 CREATININE (test code = 6942557878) 0.71 mg/dL 0.50-1.04 TOTAL BILI (test code = 5251071304) 0.4 mg/dL 0.1-1.1 CALCIUM (test code = 0555136429) 9.3 mg/dL 8.6-10.6 T PROTEIN (test code = 6600602848) 8.5 g/dL 6.3-8.2 H ALBUMIN (test code = 9195288211) 4.9 g/dL 3.5-5.0 ALK PHOS (test code = 4776095223) 106 U/L 34-122 ALTv (test code = 1742-6) 13 U/L 5-35 AST(SGOT) (test code = 6405601106) 19 U/L 13-40 eGFR (test code = 1684888301) 89.0 mL/min/1.73m2 LESVIA (test code = LESVIA) [...] imaging tests). Lab Interpretation (test code = 13682-9) Abnormal [facility] WITH [id number] 16:53:19* Test Item Value Reference Range Interpretation Comme nts WBC (test code = 6690-2) 5.51 See_Comment [Automated IntervalZeroa Acertiv] The system which generated this result transmitted reference range: 4.30 - 11.10 10*3/?L. The reference range was not used to interpret this result as normal/abnormal. RBC (test code = 789-8) 4.93 See_Comment [Automated IntervalZeroa Acertiv] The system which generated this result transmitted [...] g/dL 31.6-35.1 L RDW-SD (test code = 86601-9) 45.2 fL 39.0-49.9 RDW-CV (test code = 788-0) 18.8 % 12.0-15.5 H PLT (test code = 777-3) 350 See_Comment [Automated IntervalZeroa Acertiv] The system which generated this result transmitted reference range: 166 - 358 10*3/?L. The reference range was not used to interpret this result as normal/abnormal. MPV (test code = 54175-7) 9.7 fL 9.5-12.9 NRBC/100 WBC (test code = 8004352768) 0.0 See_Comment [Automated me ssage] The system which generated this result transmitted reference range: 0.0 - 10.0 /100 WBCs. The reference range was not used to interpret this result as normal/abnormal. NRBC x10^3 (test code = 3154541903) See_Comment [Automated messa ge] The system which generated this result transmitted reference range: 10*3/?L. The reference range was not used to interpret this result as normal/abnormal. GRAN MAT (NEUT) % (test code = 770-8) 52.0 % IMM GRAN % (test code = 1298346702) 0.20 % LYMPH % (test code = 736-9) 37.4 % MONO % (test code = 5905-5) 7.3 % EOS % (test code = 713-8) 2.2 % BASO % (test code = 706-2) 0.9 % GRAN MAT x10^3(ANC) (test code = 5248909988) 2.87 10*3/uL 1.88-7.09 IMM GRAN x10^3 (test code = 3405511060) 0.00-0.06 LYMPH x10^3 (test code = 731-0) 2.06 10*3/uL 1.32-3.29 MONO x10^3 (test code = 742-7) 0.40 10*3/uL 0.33-0.92 EOS x10^3 (test code = 711-2) 0.12 10*3/uL 0.03-0.39 BASO x10^3 (test code = 704-7) 0.05 10*3/uL 0.01-0.07 Lab Interpretation (test code = 00601-1) Abnormal [facility] [id number] 16:00:00* Test Item Value Reference Range Interpretation Comme nts POCT PREG (test code = 1605) Negative On board controls acceptable with C Line (test code = 3574) Yes POCT PREG LOT # (test code = 3575) POCT PREG TEST DATE ( test code = 3576) [facility] [id number] 16:00:00* Test Item Value Reference Range Interpretation Comme nts POCT PREG (test code = 1605) Negative On board controls acceptable with C Line (test code = 3574) Yes POCT PREG LOT # (test code = 3575) POCT PREG TEST DATE ( test code = 3576) [facility]"
[2024-09-05 02:51] LABS: Absolute Basophils 0.1 K/uL (0-0.5); Absolute Eosinophils 0.2 K/uL (0-0.5); Absolute Lymphocytes (CBC) 2.5 K/uL (0.7-4.9); Absolute Monocytes 0.5 K/uL (0.1-1.3); Basophils % 0.9 % (0-1.3); Eosinophils % 2.7 % (0-4.4); Hemoglobin 10.8 g/dL (12.0-15.0); Lymphocytes % 40.7 % (15.3-44.8); MCH 22.5 pg (27.0-35.0); MCHC 30.9 g/dL (32.0-36.0); MCV 72.9 fL (80-100); MPV 7.3 fL (7.6-11.3); Monocytes % 8.1 % (3.3-12.3); Neutrophils % 47.6 % (41.7-73.7); Nucleated Red Blood Cells % 0.1 % (0-0); Platelets 336 thou/uL (152-406); Red Cell Distribution Width 18.2 % (12.1-15.2)
[2024-09-05 03:07] LABS: Albumin 3.4 g/dL (3.4-5.0); Albumin/Globulin Ratio 0.8 (1.1-1.8); Anion Gap 7.9 mEq/L (5.0-15.0); Bilirubin Total 0.2 mg/dL (0.2-1.0); Globulin 4.3 g/dL (2.3-3.5); Potassium 3.9 mEq/L (3.5-5.1); Protein, Total 7.7 g/dL (6.4-8.2)
[2024-09-05] MEDS ORDERED: ONDANSETRON 4 MG/2 ML VIAL ONE (04:05)
[2024-09-05] MEDS ORDERED: KETOROLAC 30 MG/ML INJ ONE (04:05)
[2024-09-05] MEDS ORDERED: METHOCARBAMOL 1,000 MG/10 ML VIAL ONE (04:05)
[2024-09-05] MEDS ORDERED: MORPHINE 2 MG/ML SYR ONE (04:06)
[2024-09-05] MEDS ORDERED: NA CHLORIDE 0.9% 1,000 ML ONE (04:06)
[2024-09-05] MEDS ORDERED: MORPHINE 4 MG/ML SYR ONE (04:06)
[2024-09-05] MEDS ORDERED: NA CHLORIDE 0.9% 100 ML ONE (04:06)
--- NOTE | 2024-09-05 07:14 | RAD REPORT ---
CT chest, CT abdomen and pelvis with contrast TECHNIQUE: Axial images were taken through the chest with sagittal and coronal reconstructions. Addit ional axial images were taken through the abdomen and pelvis with sagittal and coronal reconstructions.All CT scans at this facility use dose modulation, iterative reconstruction, and/or w eight based dosing when appropriate to reduce radiation dose to as low as reasonably achievable HISTORY: CHEST PAIN COMPARISON: one FINDINGS: Chest: Mediastinum: The heart and great vessels appear unremarkable. There is no pericardial effusion. There is no pathologically enlarged adenopathy. There is no evidence for pulmonary emboli. LUNGS: ilateral dependent opacities. There is no effusion or pneumothorax. Bones: Mild arthrosis. No acute osseous abnormality. ABDOMEN: Subcentimeter hypodensity in the inferior right hepatic lobe. There is no evidence for mass or intrah epatic biliary ductal dilatation The gallbladder appears unremarkable. There is no evidence for gallbladder wall thickening or pericholecystic fluid. The adrenal glands, pancreas and spleen are nor mal. The kidneys appear unremarkable. There is no evidence for hydronephrosis or stone. There is severe stool burden in the cecum. A few scattered colonic diverticula are present. No eviden ce for obstruction. There is no evidence for acute appendicitis. Pelvis: The aorta is normal in caliber. There is no evidence for pathologically enlarged adenopathy. The bladder appears unremarkable. There is no free air or free fluid. There is a multilocular 4.2 x 2 .5 cm cyst in the left adnexa. Mild arthrosis. No acute osseous abnormality. Impression: 1. Bilateral dependent opacities, likely atelectasis. Developing infiltrates considered unlikely bu t are difficult to fully exclude. 2. No acute abnormality in the abdomen or pelvis. 3. Severe stool burden in the cecum. 4. Scattered colonic diverticulosis. 5. Multilocular 4.2 cm cyst in the left adnexa. Consider pelvic ultrasound for further evaluation. Electronically signed by: Addy Morrissey MD 09/05/2024 07:03 AM [facility] Due to temporary technical issues with the [employer] reporting system, reports are being sergio d by the in-house radiologist without review as a courtesy to ensure prompt reporting the interpreting radiologist is fully responsible for the content of the report. Transcribed Date/Time: 09/05/2024 7:14 AM
--- NOTE | 2024-09-05 08:05 | EDPHYS ---
Physician Documentation [facility] Name: Jessica Osuna Age: 48 yrs Sex: Female : 1975 Arrival Date: 09/05/2024 Time: 01:45 Bed 14 Private MD: ED Physician William Weinstein HPI: 09/05 02:15 This 48 yrs old Female presents to ER via Unassigned with complaints of sp4 Shortness Of Breath, Flank Pain. 22:03 48-year-old female presents with acute onset left flank pain left chest wall pain left sp4 abdominal pain. 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 - Infectious Disease History:: Denies. - Social history:: Smoking status: Patient denies any tobacco usage or history of. - Family history:: not pertinent. ROS: 22:03 Constitutional: Negative for fever, chills, and weight loss, positive for left flank sp4 pain left chest wall pain left abdominal pain 22:03 All other systems are negative, Exam: 22:03 Constitutional: This is a well developed, well nourished patient who is awake, alert, sp4 and in no acute distress. Head/Face: Normocephalic, atraumatic. Eyes: Pupils equal round and reactive to light, extra-ocular motions intact. Lids and lashes normal. Conjunctiva and sclera are not injected. Cornea within normal limits. Periorbital areas with no swelling, redness, or edema. ENT: Nares patent. No nasal discharge, no septal abnormalities noted. Tympanic membranes are normal and external auditory canals are clear. Oropharynx with no redness, swelling, or masses, exudates, or evidence of obstruction, uvula midline. Mucous membranes moist. Neck: Trachea midline, no thyromegaly or masses palpated, and no cervical lymphadenopathy. Supple, full range of motion without nuchal rigidity, or vertebral point tenderness. Chest/axilla: Normal chest wall appearance and motion. Nontender with no deformity. No lesions are appreciated. Cardiovascular: Regular rate and rhythm with a normal S1 and S2. No gallops, murmurs, or rubs. Normal PMI, no JVD. No pulse deficits. Respiratory: Lungs have equal breath sounds bilaterally, clear to auscultation and percussion. No rales, rhonchi or wheezes noted. No increased work of breathing, no retractions or nasal flaring. Abdomen/GI: Soft, with normal bowel sounds. No distension or tympany. No guarding or rebound. No evidence of tenderness throughout. Back: No spinal tenderness. No costovertebral tenderness. Skin: Warm, dry with normal turgor. Normal color with no rashes, no lesions, and no evidence of cellulitis. MS/ Extremity: Pulses equal, no cyanosis. Neurovascular intact. Full, normal range of motion. Neuro: Awake and alert, GCS 15, oriented to person, place, time, and situation. Cranial nerves II-XII grossly intact. Motor strength 5/5 in all extremities. Sensory grossly intact. Psych: Awake, alert, with orientation to person, place and time. Behavior, mood, and affect are within normal limits 22:06 ECG was reviewed by the Attending Physician. EKG 0 4:30 AM normal sinus rhythm rate sp4 65 Vital Signs: 02:22 BP 108 / 59; Pulse 67; Resp 16; Temp 97.7(O); Pulse Ox 98% on R/A; Weight 72.57 kg; dd2 Height 5 ft. 8 in. ; Pain 10/10; 02:30 BP 125 / 75; Pulse 71; Resp 16; Pulse Ox 100% on R/A; dd2 03:00 BP 113 / 63; Pulse 64; Resp 17; Pulse Ox 100% on R/A; dd2 03:33 BP 108 / 58; Pulse 65; Resp 15; Pulse Ox 100% on R/A; dd2 04:11 BP 142 / 75; Pulse 64; Resp 16; Pulse Ox 100% on R/A; dd2 04:45 BP 100 / 64; Pulse 56; Resp 15; Temp 98.4; Pulse Ox 98% on R/A; dd2 05:30 BP 98 / 57; Pulse 55; Resp 15; Pulse Ox 98% on R/A; dd2 06:00 BP 98 / 57; Pulse 53; Resp 15; Pulse Ox 99% on R/A; dd2 07:45 BP 102 / 58; Pulse 54; Resp 18; Temp 98; Pulse Ox 98% on R/A; ph 02:22 Body Mass Index 24.33 (72.57 kg, 172.72 cm) dd2 02:22 Pain Scale: Adult dd2 Becca Coma Score: 02:30 Eye Response: spontaneous(4). Motor Response: obeys commands(6). Verbal Response: dd2 oriented(5). Total: 15. 22:03 Eye Response: spontaneous(4). Motor Response: obeys commands(6). Verbal Response: sp4 oriented(5). Total: 15. MDM: 02:17 Medical Screening Exam initiated sp4 08:03 Data reviewed: vital signs, nurses notes. ED course: Patient is a lateral position, ec2 brief arrives today for left-sided chest pain. Lab values are unrevealing, troponin within normal ranges. CBC with slight anemia noted. Metabolic profile is reassuring. Lipase within normal ranges. testing negative. CT scan of the chest, abdomen, pelvis shows atelectasis, significant constipation, left adnexal cyst which she can follow-up outpatient for ultrasonography.. 22:03 ED course: CT chest, CT abdomen and pelvis with contrast TECHNIQUE: Axial images were sp4 taken through the chest with sagittal and coronal reconstructions. Additional axial images were taken through the abdomen and pelvis with sagittal and coronal reconstructions.All CT scans at this facility use dose modulation, iterative reconstruction, and/or weight based dosing when appropriate to reduce radiation dose to as low as reasonably achievable HISTORY: CHEST PAIN COMPARISON:None FINDINGS: Chest: Mediastinum:The heart and great vessels appear unremarkable. There is no pericardial effusion. There is no pathologically enlarged adenopathy. There is no evidence for pulmonary emboli. LUNGS:Bilateral dependent opacities. There is no effusion or pneumothorax. Bones: Mild arthrosis. No acute osseous abnormality. ABDOMEN: Subcentimeter hypodensity in the inferior right hepatic lobe. There is no evidence for mass or intrahepatic biliary ductal dilatation The gallbladder appears unremarkable. There is no evidence for gallbladder wall thickening or pericholecystic fluid. The adrenal glands, pancreas and spleen are normal. The kidneys appear unremarkable. There is no evidence for hydronephrosis or stone. There is severe stool burden in the cecum. A few scattered colonic diverticula are present. No evidence for obstruction. There is no evidence for acute appendicitis. Pelvis: The aorta is normal in caliber. There is no evidence for pathologically enlarged adenopathy. The bladder appears unremarkable. There is no free air or free fluid. There is a multilocular 4.2 x 2.5 cm cyst in the left adnexa. Mild arthrosis. No acute osseous abnormality. Impression: 1. Bilateral dependent opacities, likely atelectasis. Developing infiltrates considered unlikely but are difficult to fully exclude. 2. No acute abnormality in the abdomen or pelvis. 3. Severe stool burden in the cecum. 4. Scattered colonic diverticulosis. 5. Multilocular 4.2 cm cyst in the left adnexa. Consider pelvic ultrasound for further evaluation. Electronically signed by: Addy Morrissey MD 09/05/2024 07:03 AM CLAIM EXAMINER RP. 09/05 02:17 Order name: CBC with Diff; Complete Time: 03:44 sp4 09/05 02:17 Order name: CMP; Complete Time: 03:44 sp4 09/05 02:17 Order name: Lipase; Complete Time: 03:44 sp4 09/05 03:49 Order name: Troponin High Sensitivity; Complete Time: 08:02 sp4 09/05 05:20 Order name: Test, Serum; Complete Time: 08:02 dd2 09/05 03:49 Order name: CT Chest, Abdomen, Pelvis - W/Contrast; Complete Time: 08:02 sp4 09/05 03:49 Order name: EKG; Complete Time: 03:50 sp4 09/05 02:17 Order name: IV Saline Lock; Complete Time: 02:41 sp4 09/05 02:17 Order name: Labs collected and sent; Complete Time: 02:41 sp4 09/05 03:49 Order name: EKG - Nurse/Tech; Complete Time: 04:32 sp4 EC:30 Rate is 65 beats/min. Rhythm is regular, Normal Sinus Rhythm. QRS [place] is Normal. [place] sp4 interval is normal. QRS interval is normal. QT interval is normal. No Q waves. T waves are Normal. No ST changes noted. Clinical impression: Normal ECG. Interpreted by me. Reviewed by me. Administered Medications: 04:25 Drug: morphine IVP or IV 6 mg IVP once over 4 mins Route: IVP; Infused Over: 4 mins; dd2 Site: right antecubital; 07:05 Follow up: Response: No adverse reaction ph 04:25 Drug: Methocarbamol IVPB 1 grams IVPB once over 1 hrs; (mix in NS 100 mL) Route: IVPB; dd2 Infused Over: 1 hrs; Site: right antecubital; 04:25 Drug: Ondansetron IVP 4 mg IVP once; over 2 minutes Route: IVP; Site: right antecubital;dd2 07:05 Follow up: Response: No adverse reaction ph 04:25 Drug: NS 0.9% IV 1000 ml IV at 1 bolus Per protocol; to be given as a bolus over 60 dd2 minutes Route: IV; Rate: 1 bolus; Site: right antecubital; 04:26 Drug: Ketorolac IVP 30 mg IVP once Route: IVP; Site: right antecubital; dd2 07:05 Follow up: Response: No adverse reaction ph Disposition: 22:07 Chart complete. sp4 Disposition Summary: 09/05/24 08:04 Discharge Ordered Notes: Location: Home ec2 Condition: Stable ec2 Diagnosis - Chest pain, unspecified ec2 - Constipation, unspecified ec2 - Ovarian Cyst ec2 Followup: ec2 - With: Private Physician - When: - Reason: Re-evaluation by your physician Discharge Instructions: - Discharge Summary Sheet ec2 - Nonspecific Chest Pain, Adult ec2 Forms: - Work release form iw - Medication Reconciliation Form ec2 - Antibiotic Education ec2 - Prescription Opioid Use ec2 - Patient Portal Instructions ec2 - Leadership Thank You Letter ec2 Signatures: Dispatcher [employer] Jay Schmitt MD MD sp4 William Weinstein MD MD ec2 RADHA SHELBY RN RN dd2 Alicia Grossman RN ph Corrections: (The following items were deleted from the chart) 02:17 02:17 CBC+H.LAB.BRZ ordered. EDMS EDMS 02:17 02:17 COMPREHENSIVE METABOLIC PANEL+C.LAB.BRZ ordered. EDMS EDMS 02:17 02:17 LIPASE+C.LAB.BRZ ordered. EDMS EDMS 02:17 02:17 Test, Urine+UC.LAB.BRZ ordered. EDMS EDMS 02:17 02:17 Urinalysis+U.LAB.BRZ ordered. EDMS EDMS 02:26 02:25 PSHx: None; dd2 dd2 03:49 03:49 Chest Abdomen Pelvis W Con+CT.RAD.BRZ ordered. EDMS EDMS
--- NOTE | 2024-09-05 08:05 | ER ---
Nurse's Notes [facility] Name: Jessica Osuna Age: 48 yrs Sex: Female : 1975 Arrival Date: 09/05/2024 Time: 01:45 Bed 14 Private MD: Diagnosis: Chest pain, unspecified;Constipation, unspecified;Ovarian Cyst Presentation: 09/05 02:22 Chief complaint: Patient states: UPPER LT ABDOMINAL CRAMPING THAT RADIATES TO THE LT dd2 BACK X 1.5 DAYS. PT REPORTS IT FEELS LIKE A "CHON HORSE" AND PAINFUL TO TAKE A DEEP BREATH. Coronavirus screen: At this time, the client does not indicate any symptoms associated with coronavirus-19. Ebola Screen: No symptoms or risks identified at this time. Initial Sepsis Screen: Does the patient meet any 2 criteria? No. Patient's initial sepsis screen is negative. Does the patient have a suspected source of infection? No. Patient's initial sepsis screen is negative. Risk Assessment: Do you want to hurt yourself or someone else? Patient reports no desire to harm self or others. Onset of symptoms was September 03, 2024. 02:22 Method Of Arrival: Ambulatory dd2 02:22 Acuity: TINA 3 dd2 Triage Assessment: 02:25 General: Appears uncomfortable, Behavior is calm, cooperative, appropriate for age. dd2 Pain: Complains of pain in left mid back, posterior aspect of left lateral abdomen and left upper quadrant Pain currently is 10 out of 10 on a pain scale. EENT: No deficits noted. No signs and/or symptoms were reported regarding the EENT system. Neuro: No deficits noted. Cardiovascular: No deficits noted. Respiratory: Reports pain with respiration since 09/03/2024 Airway is patent Respiratory effort is even, unlabored, Respiratory pattern is regular, symmetrical, Breath sounds are clear Onset: The symptoms/episode began/occurred 09/03/2024, the patient has mild shortness of breath. GI: Abdomen is non-distended, Abdomen is tender to palpation in posterior aspect of left lateral abdomen, anterior aspect of left lateral abdomen and left upper quadrant Reports upper abdominal pain, nausea. : No deficits noted. No signs and/or symptoms were reported regarding the genitourinary system. Derm: No deficits noted. No signs and/or symptoms reported regarding the dermatologic system. Musculoskeletal: Circulation, motion, and sensation intact. Range of motion: intact in all extremities, Tenderness present in left mid back, posterior aspect of left lateral abdomen and anterior aspect of left lateral abdomen Reports pain in left mid back, posterior aspect of left lateral abdomen, anterior aspect of left lateral abdomen and left upper quadrant. 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 - Infectious Disease History:: Denies. - Social history:: Smoking status: Patient denies any tobacco usage or history of. - Family history:: not pertinent. Screenin:30 [facility] ED Fall Risk Assessment (Adult) History of falling in the last 3 months, dd2 including since admission No falls in past 3 months (0 pts) Confusion or Disorientation No (0 pts) Intoxicated or Sedated No (0 pts) Impaired Gait No (0 pts) Mobility Assist Device Used No (0 pt) Altered Elimination No (0 pt) Score/Fall Risk Level 0 - 2 = Low Risk Oriented to surroundings, Maintained a safe environment, Educated pt \\T\\ family on fall prevention, incl call for assistance when getting out of bed, Assessed \\T\\ reinforced patient's understanding of fall precautions, Hourly rounding (assess needs \\T\\ fall precautionary measures) done. Abuse screen: Denies threats or abuse. Nutritional screening: No deficits noted. Tuberculosis screening: No symptoms or risk factors identified. Assessment: 02:30 Reassessment: SEE TRIAGE ASSESSMENT FOR FULL ASSESSMENT. dd2 07:08 Reassessment: Patient and/or family updated on plan of care and expected duration. Pain dd2 level reassessed. Patient is alert, oriented x 3, equal unlabored respirations, skin warm/dry/pink. Patient states symptoms have improved. 08:35 Reassessment: Patient appears in no apparent distress at this time. Patient and/or ph family updated on plan of care and expected duration. Pain level reassessed. Patient is alert, oriented x 3, equal unlabored respirations, skin warm/dry/pink. Vital Signs: 02:22 BP 108 / 59; Pulse 67; Resp 16; Temp 97.7(O); Pulse Ox 98% on R/A; Weight 72.57 kg; dd2 Height 5 ft. 8 in. ; Pain 10/10; 02:30 BP 125 / 75; Pulse 71; Resp 16; Pulse Ox 100% on R/A; dd2 03:00 BP 113 / 63; Pulse 64; Resp 17; Pulse Ox 100% on R/A; dd2 03:33 BP 108 / 58; Pulse 65; Resp 15; Pulse Ox 100% on R/A; dd2 04:11 BP 142 / 75; Pulse 64; Resp 16; Pulse Ox 100% on R/A; dd2 04:45 BP 100 / 64; Pulse 56; Resp 15; Temp 98.4; Pulse Ox 98% on R/A; dd2 05:30 BP 98 / 57; Pulse 55; Resp 15; Pulse Ox 98% on R/A; dd2 06:00 BP 98 / 57; Pulse 53; Resp 15; Pulse Ox 99% on R/A; dd2 07:45 BP 102 / 58; Pulse 54; Resp 18; Temp 98; Pulse Ox 98% on R/A; ph 02:22 Body Mass Index 24.33 (72.57 kg, 172.72 cm) dd2 02:22 Pain Scale: Adult dd2 [place] Coma Score: 02:30 Eye Response: spontaneous(4). Motor Response: obeys commands(6). Verbal Response: dd2 oriented(5). Total: 15. 22:03 Eye Response: spontaneous(4). Motor Response: obeys commands(6). Verbal Response: sp4 oriented(5). Total: 15. ED Course: 01:48 Patient arrived in ED. gm2 02:15 Jay Peters MD is Attending Physician. sp4 02:22 RADHA SHELBY RN is Primary Nurse. dd2 02:25 Triage completed. dd2 02:25 Arm band placed on right wrist. Patient placed in an exam room, on a stretcher, on dd2 pulse oximetry, Patient notified of wait time. 02:30 Patient has correct armband on for positive identification. Bed in low position. Call dd2 light in reach. Side rails up X 1. Client placed on continuous cardiac and pulse oximetry monitoring. NIBP monitoring applied. Door closed. Noise minimized. Pillow given. Verbal reassurance given. 02:30 No provider procedures requiring assistance completed. dd2 02:30 Patient maintains SpO2 saturation greater than 95% on room air. dd2 02:41 CBC with Diff Sent. dd2 02:41 CMP Sent. dd2 02:41 Lipase Sent. dd2 02:41 Inserted saline lock: 20 gauge in right antecubital area, using aseptic technique. dd2 Blood collected. Flushed with 10 mL NS. 04:25 Troponin High Sensitivity Sent. dd2 04:32 EKG done, by instrument and controls technician. af3 06:26 CT Chest, Abdomen, Pelvis - W/Contrast In Process Unspecified. EDMS 08:04 Attending Physician role handed off by Jay Peters MD ec2 08:04 William Weinstein MD is Attending Physician. ec2 08:44 IV discontinued, intact, bleeding controlled, No redness/swelling at site. Pressure ph dressing applied. Administered Medications: 04:25 Drug: morphine IVP or IV 6 mg IVP once over 4 mins Route: IVP; Infused Over: 4 mins; dd2 Site: right antecubital; 07:05 Follow up: Response: No adverse reaction ph 04:25 Drug: Methocarbamol IVPB 1 grams IVPB once over 1 hrs; (mix in NS 100 mL) Route: IVPB; dd2 Infused Over: 1 hrs; Site: right antecubital; 04:25 Drug: Ondansetron IVP 4 mg IVP once; over 2 minutes Route: IVP; Site: right antecubital;dd2 07:05 Follow up: Response: No adverse reaction ph 04:25 Drug: NS 0.9% IV 1000 ml IV at 1 bolus Per protocol; to be given as a bolus over 60 dd2 minutes Route: IV; Rate: 1 bolus; Site: right antecubital; 04:26 Drug: Ketorolac IVP 30 mg IVP once Route: IVP; Site: right antecubital; dd2 07:05 Follow up: Response: No adverse reaction ph Medication: 02:30 VIS not applicable for this client. dd2 Outcome: 08:04 Discharge ordered by . ec2 08:44 Discharged to home ambulatory, ph 08:44 Condition: good 08:44 Discharge instructions given to patient, Instructed on discharge instructions, follow up and referral plans. Demonstrated understanding of instructions, follow-up care, 08:44 Patient left the ED. ph Signatures: Dispatcher [employer] Alicia Huddleston, RN RN ph Jay Peters MD MD sp4 William Weinstein MD MD ec2 Jewell Saleh 2 Charmaine Christopher 3 RADHA SHELBY RN RN dd2 Corrections: (The following items were deleted from the chart) 02:26 02:25 PSHx: None; dd2 dd2
[2024-09-05 09:33] VITALS: BP 102/58; TEMP 98; O2SAT 98
--- NOTE | 2024-09-06 13:39 | EKG ---
Test Date: 2024-09-05 Test Time: 04:30:21 [employer] Butting Machine Operator: AF MEASUREMENT RESULTS: Intervals: Rate: 65 GA: 130 QRSD: 94 QT: 444 QTc: 461 Clem[place]: P: 41 GA: 130 QRS: 78 T: 68 INTERPRETIVE STATEMENTS: Normal sinus rhythm Normal ECG Compared to ECG 09/23/2023 18:38:48 No significant changes Electronically Signed On 09-06-24 13:36:36 BOOKING AGENT by Gabriel Novak
== END 2024-09-05 08:44 | disposition home or self-care (01) ==
LOC: ER 01:45
DX: R07.9 Chest pain, unspecified (principal); K59.00 Constipation, unspecified; N83.202 Unspecified ovarian cyst, left side; Z98.82 Breast implant status
CPT/HCPCS: 93005; 85025; 36415; 84703; 84484; 83690; 80053; 71260; 74177; 96375; 96374; 99284; Q9967; J2270; J2405; J2800; J7030